=== PATIENT | male | born 1950 | race Caucasian/White ===

== ENCOUNTER 2019-08-18 11:36 | Outpatient (RCR) | payer MEDICARE, SELFPAY | END 2019-09-15 00:01 | LOC: SPT 11:36 | PROVIDERS: Family Provider Nurse Practitioner Family; Visit Provider Specialist | DX: R42 Dizziness and giddiness (principal) | CPT/HCPCS: 95992 ×3; 97162 ==

== ENCOUNTER → 2019-11-19 13:09 | Outpatient (BNVA) | payer MEDICARE, SELFPAY | PROVIDERS: Visit Provider Nurse Practitioner Family | DX: I10 Essential (primary) hypertension (principal); Z79.01 Long term (current) use of anticoagulants; J44.9 Chronic obstructive pulmonary disease, unspecified; E78.5 Hyperlipidemia, unspecified; K13.70 Unspecified lesions of oral mucosa | CPT/HCPCS: 80053; 80061; 85025; 85610 ==

== ENCOUNTER 2019-12-05 09:45 | Emergency (ER) | payer MEDICARE, SELFPAY ==
[2019-12-05 09:52] VITALS: BMI 26.4
--- NOTE | 2019-12-05 09:52 | XR_ITS ---
WS: [id number] XR chest 1V portable [id number] REASON FOR EXAM: cough/congestion FINDINGS: Diffuse pleural plaque formation on the right side similar to the previous exam of February 23, 2017. The heart is not enlarged there is arteriosclerotic changes. The lung luciano are otherwise clear there is no pneumonia, pulmonary edema, pleural effusion, The hilum and apices normal. XR/XR chest 1V portable [id number] IMPRESSION: Diffuse pleural plaque formation on the right side.
[2019-12-05 09:54] VITALS: BP 112/71; PULSE 60; RESP 20; TEMP 36.5; O2SAT 97
--- NOTE | 2019-12-05 09:54 | ED_ITS ---
Entered by Joe Mendez, acting as scribe for HPI - General Adult General: Chief complaint: General Medical Stated complaint: COUGH, FEVER Time Seen by Provider: 12/05/19 09:55 Source: patient and family Mode of arrival: ambulatory Limitations: no limitations History of Present Illness: HPI narrative: Patient is a very nice 69-year-old male who presents to ED today with complaints of a productive cough, generally not feeling well, subjective fevers, and dizziness after coughing. Patient tells me symptoms have been present over the past 2 to 3 days. He does have a history of COPD. Reports being a former smoker and quit 3 to 4 years ago. He does not wear oxygen at home. Patient tells me he has not been around anybody else that has been sick. He has had no recent travel. Onset (ago): day(s) Relieving factors: none Exacerbating factors: none Associated symptoms: Deny chest pain, dyspnea, headache(s), nausea, rash, palpitations, syncope or vomiting Review of Systems Const: Reports: fever (subjective) and body aches Eyes: Denies: change in vision, blurry vision or photophobia ENMT: Denies: throat pain, uvular edema, enlarged tonsils, painful swallowing, hoarseness, nasal discharge, nasal congestion or facial/sinus pain Card: Denies: chest pain, palpitations, irregular heart rhythm, edema, lightheadedness, syncope, pre-syncope or shortness of breath when lying down Resp: Reports: productive cough and chest congestion; Denies: shortness of breath or coughing up blood GI: Denies: abdominal pain, nausea, vomiting or diarrhea : Denies: flank pain, difficulty urinating, urinary hesitancy or difficulty starting urination Musc: Denies: neck pain, back pain, extremity pain or joint pain Skin/Breast: Denies: rash Neuro: Denies: headache, numbness in extremities, weakness in extremities or changes in sensation PFS ED PFSH: Medical History (Updated 12/05/19 @ 11:03 by MILLY Aldana) Anticoagulant long-term use COPD (chronic obstructive pulmonary disease) Hyperlipidemia Hypertension Family History (Updated 11/19/19 @ 11:26 by Julia Smith LPN, RT) Father CAD (coronary artery disease) Social History (Updated 11/19/19 @ 11:29 by Julia Smith LPN, RT) Smoking and tobacco status: never smoked Quit status (tobacco): has quit using tobacco Year quit tobacco: 2017 Former quit date comment: smoked 70 pack yr x 30 yrs Second hand smoke exposure: No Alcohol intake: former Year of sobriety/quit date alcohol: 2017 Lives independently: Yes Household members: spouse Marital status: service: No Current occupational status: retired History of recent travel: No Current gender identity: Male Physical Exam Const: COMMON NORMALS: no apparent distress, average body habitus, oriented x3, no limitations, healthy appearing, alert and well nourished HENMT: COMMON NORMALS: normocephalic, head/scalp atraumatic, hearing grossly normal bilaterally, external ears normal, EAC's normal, TM's normal bilaterally, external nose normal, nasal mucous membranes and turbinates normal, moist oral mucous membranes, oropharynx normal and gingiva normal HEAD & SCALP: normocephalic and atraumatic FACE & SINUS: normal facial exam NOSE: external nose normal and nasal mucous membranes and turbinates normal EXTERNAL EAR: Yes external ears normal EXTERNAL AUDITORY CANAL: EAC's normal TYMPANIC MEMBRANE: TM's normal bilaterally THROAT: posterior oropharynx normal, tonsils normal and uvula midline; no uvular edema Eye: COMMON NORMALS: PERRL, EOMs intact bilaterally, conjunctivae normal and no scleral icterus CONJUNCTIVA: Yes conjunctivae normal PUPIL: Yes PERRL Neck/C-Spine: COMMON NORMALS: full ROM, no lymphadenopathy and no meningeal signs Resp: COMMON NORMALS: normal respiratory effort AUSCULTATION: rhonchi lower bilaterally Cardio: COMMON NORMALS: regular rate and regular rhythm RATE: regular rate RHYTHM: regular rhythm GI: COMMON NORMALS: normal to inspection, nondistended, normoactive bowel sounds, soft to palpation, non-tender, no hepatosplenomegaly and no masses PALPATION: Yes soft and Yes no hepatosplenomegaly : COMMON NORMALS: Yes no CVA tenderness BLADDER/KIDNEY EXAM: Yes no CVA tenderness Back/Pelvis: COMMON NORMALS: no CVA tenderness, thoracic and lumbar spine norm al to inspection, no thoracic nor lumbar tenderness and thoraco-lumbar ROM normal Extremity: COMMON NORMALS: normal to inspection Neuro: COMMON NORMALS: oriented x3 SENSORIUM/ORIENTATION: Yes alert MENINGEAL SIGNS: Yes no meningeal signs Skin: COMMON NORMALS: no rashes or lesions noted GENERAL SKIN EXAM: no rashes or lesions noted Course Vital Signs: Vital signs: Vital Signs Temperature 97.7 F 12/05/19 09:54 Pulse Rate 62 12/05/19 10:31 Respiratory Rate 18 12/05/19 10:31 Blood Pressure 110/68 12/05/19 10:31 Pulse Oximetry 95 12/05/19 10:31 MDM - General Adult MDM Narrative: Medical decision making narrative: pts vitals are perfect; CXR showing nothing acute; labs are non-concerning; flu is negative; will treat him for exacerbation of COPD and recommend self quarantine based on symptoms and he can return if worsening. Lab Data: Labs: Lab Results 12/05/19 12/05/19 12/05/19 Range/Units 09:52 10:03 10:03 WBC 5.8 (4.0-10.0) 10^3/ uL RBC 4.27 (4.1-5.3) 10^6/u L Hgb 13.2 (11.7-16.6) g/dL Hct 41.0 L (42.0-52.0) % MCV 96.0 H (80-94) fL MCH 30.9 (28.0-34.0) pg MCHC 32.2 (30.0-36.0) g/dL RDW 13.1 (12.1-15.1) % Plt Count 159 (130-400) 10^3/c mm MPV 9.9 (7.4-10.4) fL Neut % (Auto) 63.0 % Lymph % (Auto) 28.0 % [place] % (Auto) 8.2 % Eos % (Auto) 0.3 % Baso % (Auto) 0.0 % Neut # (Auto) 3.7 (1.8-7.7) 10^3/u L Lymph # (Auto) 1.6 (0.8-4.8) 10^3/u L [place] # (Auto) 0.5 (0.2-0.9) 10^3/u L Eos # (Auto) 0.0 (0.0-0.8) 10^3/u L Baso # (Auto) 0.0 (0.0-0.1) 10^3/u L Nucleated RBC % (a uto) 0 % Nucleated RBCs # 0.0 /100WBC PT (10.5-13.3) SECO NDS INR (0.8-1.2) Sodium 138 (136-145) mmol/L Potassium 4.6 (3.5-5.1) mmol/L Chloride 100 (98-107) mmol/L Carbon Dioxide 30 H (22-29) mmol/L Anion Gap 12.6 (5-19) BUN 17 (8-23) mg/dL Creatinine 0.9 (0.7-1.2) mg/dL GFR Calculation 83.9 L (90-130) mL/min Glucose 104 (65-115) mg/dL Calculated Osmolal ity 283 L (285-295) mOsm/k g Calcium 9.9 (8.5-10.5) mg/dL Total Bilirubin 1.3 H (0.15-1.2) mg/dL AST 27 (0-40) U/L ALT 18 (0-41) U/L Alkaline Phosphata se 73 (40-130) IU/L Total Protein 7.7 (6.6-8.7) g/dL Albumin 4.0 (3.5-5.2) g/dL Globulin 3.7 (1.3-4.6) g/dL Influenza Type A A g Negative (Negative) POC Influenza B Ag Negative (Negative) 12/05/19 Range/Units 10:03 WBC (4.0-10.0) 10^3/ uL RBC (4.1-5.3) 10^6/u L Hgb (11.7-16.6) g/dL Hct (42.0-52.0) % MCV (80-94) fL MCH (28.0-34.0) pg MCHC (30.0-36.0) g/dL RDW (12.1-15.1) % Plt Count (130-400) 10^3/c mm MPV (7.4-10.4) fL Neut % (Auto) % Lymph % (Auto) % Castro % (Auto) % Eos % (Auto) % Baso % (Auto) % Neut # (Auto) (1.8-7.7) 10^3/u L Lymph # (Auto) (0.8-4.8) 10^3/u L [place] # (Auto) (0.2-0.9) 10^3/u L Eos # (Auto) (0.0-0.8) 10^3/u L Baso # (Auto) (0.0-0.1) 10^3/u L Nucleated RBC % (a uto) % Nucleated RBCs # /100WBC PT 30.10 H (10.5-13.3) SECO NDS INR 2.75 H (0.8-1.2) Sodium (136-145) mmol/L Potassium (3.5-5.1) mmol/L Chloride (98-107) mmol/L Carbon Dioxide (22-29) mmol/L Anion Gap (5-19) BUN (8-23) mg/dL Creatinine (0.7-1.2) mg/dL GFR Calculation (90-130) mL/min Glucose (65-115) mg/dL Calculated Osmolal ity (285-295) mOsm/k g Calcium (8.5-10.5) mg/dL Total Bilirubin (0.15-1.2) mg/dL AST (0-40) U/L ALT (0-41) U/L Alkaline Phosphata se (40-130) IU/L Total Protein (6.6-8.7) g/dL Albumin (3.5-5.2) g/dL Globulin (1.3-4.6) g/dL Influenza Type A A g (Negative) POC Influenza B Ag (Negative) Imaging Data^: CXR: Radiologist's impression: [place] [address] XRay Report Signed Patient: Lei Azevedo Unit #: [id number] : [id number] Age/Sex: 69 / M ADM Date: 12/05/19 Loc: ER Room/Bed: Attending Dr: Ordering Provider/Ordering MD: Imelda Trammell Date of Service: 12/05/19 Procedure(s): XR chest 1V portable [id number] Accession Number(s): [id number] Report Number: [id number] WS: [id number] XR chest 1V portable [id number] REASON FOR EXAM: cough/congestion FINDINGS: Diffuse pleural plaque formation on the right side similar to the previous exam of February 23, 2017. The heart is not enlarged there is arteriosclerotic changes. The lung luciano are otherwise clear there is no pneumonia, pulmonary edema, pleural effusion, The hilum and apices normal. XR/XR chest 1V portable [id number] IMPRESSION: Diffuse pleural plaque formation on the right side. Dictated By: Abdoulaye Casillas DO Signed By: Abdoulaye Casillas DO Signed Date/Time: 12/05/19 1011 DD/ 1010 Discharge Plan Discharge Patient Disposition: Home, Self-Care Clinical Impression: Bronchitis, Acute exacerbation of chronic obstructive airways disease Condition: Stable Prescriptions: New prednisone 10 mg tablet 60 mg PO DAILY 5 Days Qty: 30 RF: 0 doxycycline monohydrate 100 mg capsule 100 mg PO Q12H 10 Days Qty: 20 RF: 0 albuterol sulfate 90 mcg/actuation HFA aerosol inhaler 2 inh INHALATION Q4H PRN (Reason: shortness of breath) Qty: 6.7 RF: 0 No Action tamsulosin [Flomax] 0.4 mg capsule 0.4 mg PO DAILY RF: 0 warfarin [Coumadin] 2 mg tablet 2 mg PO DIRECTED RF: 0 rosuvastatin [Crestor] 40 mg tablet 40 mg PO DAILY RF: 0 Spiriva with HandiHaler 18 mcg capsule, w/inhalation device 1 cap INHALATION DAILY RF: 0 nitroglycerin [Nitrostat] 0.4 mg tablet, sublingual 0.4 mg SUBLINGUAL Q5M PRNRF: 0 fluticasone propionate [Flonase Allergy Relief] 50 mcg/actuation spray,suspension 1 spray INTRANASAL DAILY Qty: 9.9 RF: 3 metoprolol tartrate 25 mg tablet 25 mg PO BID Qty: 60 RF: 0 Discharge Orders: Discharge Order (Routine); Ordered 12/05/19 Ordered By: Imelda Trammell Discharge Diet: Usual diet Discharge Activity: Increase activity as tolerated Patient Instructions: COPD, Acute Bronchitis (ED), Chronic Bronchitis (ED) Coding Level of Care Code ED Pmp Certified Project Manager for g Fwd Exam Comprehensive The documentation recorded by the Andrea arboleda Kialy, accurately reflects the service I personally performed and the decisions made by Jp nathan Emily, PA
[2019-12-05 10:08] LABS: Eosinophils % 0.3 %; Hemoglobin 13.2 g/dL (11.7-16.6); Lymphocytes # 1.6 10^3/uL (0.8-4.8); Mean Corpuscular HGB Conc 32.2 g/dL (30.0-36.0); Mean Corpuscular Hemoglobin 30.9 pg (28.0-34.0); Mean Platelet Volume 9.9 fL (7.4-10.4); Monocytes # 0.5 10^3/uL (0.2-0.9); Monocytes % 8.2 %; Neutrophils # 3.7 10^3/uL (1.8-7.7); Nucleated Red Blood Cells % 0 %; Platelet Count 159 10^3/cmm (130-400); Red Blood Count 4.27 10^6/uL (4.1-5.3); Red Cell Distribution Width 13.1 % (12.1-15.1); White Blood Count 5.8 10^3/uL (4.0-10.0)
[2019-12-05 10:16] LABS: INR 2.75 (0.8-1.2)
[2019-12-05] MEDS: sodium chloride 0.9% 1,000 ML 999 ML IV (10:19)
[2019-12-05 10:23] LABS: Alanine Aminotransferase 18 U/L (0-41); Alkaline Phosphatase 73 IU/L (40-130); Anion Gap 12.6 (5-19); Aspartate Amino Transferase 27 U/L (0-40); Blood Urea Nitrogen 17 mg/dL (8-23); Calcium 9.9 mg/dL (8.5-10.5); Carbon Dioxide 30 mmol/L (22-29); Chloride 100 mmol/L (98-107); Globulin 3.7 g/dL (1.3-4.6); Glomerular Filtration Rate 83.9 mL/min (90-130); Glucose 104 mg/dL (65-115); Osmolality Calculated 283 mOsm/kg (285-295); Potassium 4.6 mmol/L (3.5-5.1); Sodium 138 mmol/L (136-145); Total Bilirubin 1.3 mg/dL (0.15-1.2); Total Protein 7.7 g/dL (6.6-8.7)
[2019-12-05 10:31] VITALS: BP 110/68; PULSE 62; RESP 18; O2SAT 95
[2019-12-05 10:47] LABS: Influenza A by IFA Negative (Negative); Influenza B by IFA Negative (Negative)
[2019-12-05 11:38] VITALS: BP 136/74; PULSE 61; RESP 16; O2SAT 97
== END 2019-12-05 11:44 | disposition home or self-care (01) ==
PROVIDERS: Emergency Provider Physician Assistant
DX: J44.1 Chronic obstructive pulmonary disease with (acute) exacerbation (principal); E78.5 Hyperlipidemia, unspecified; I10 Essential (primary) hypertension; Z79.01 Long term (current) use of anticoagulants; Z79.51 Long term (current) use of inhaled steroids; Z87.891 Personal history of nicotine dependence
CPT/HCPCS: 12345; 36415; 71045; 80053; 85025; 85610; 87804; 96360; 99283; J7030

== ENCOUNTER → 2019-12-14 13:32 | Outpatient (BNVA) | payer MEDICARE, SELFPAY | PROVIDERS: Visit Provider Nurse Practitioner Family | DX: Z79.01 Long term (current) use of anticoagulants (principal); B37.0 Candidal stomatitis; J30.9 Allergic rhinitis, unspecified | CPT/HCPCS: 85610 ==

== ENCOUNTER → 2019-12-22 13:48 | Outpatient (BNVA) | payer MEDICARE, SELFPAY | PROVIDERS: Visit Provider Nurse Practitioner Family | DX: R63.4 Abnormal weight loss (principal); Z79.01 Long term (current) use of anticoagulants; K13.70 Unspecified lesions of oral mucosa; L20.9 Atopic dermatitis, unspecified; F17.200 Nicotine dependence, unspecified, uncomplicated | CPT/HCPCS: 80053; 84443; 85025; 85610 ==

== ENCOUNTER → 2019-12-25 14:00 | Outpatient (BNVA) | payer MEDICARE, SELFPAY | PROVIDERS: Visit Provider Nurse Practitioner Family | DX: N39.0 Urinary tract infection, site not specified (principal); J02.9 Acute pharyngitis, unspecified; K13.70 Unspecified lesions of oral mucosa; N30.01 Acute cystitis with hematuria; F17.200 Nicotine dependence, unspecified, uncomplicated; R63.4 Abnormal weight loss; L20.9 Atopic dermatitis, unspecified | CPT/HCPCS: 81000 ==

== ENCOUNTER 2019-12-28 07:54 | Outpatient (CLI) | payer MEDICARE, SELFPAY ==
--- NOTE | 2019-12-28 08:30 | CT_ITS ---
WS: [id number] CT CHEST TECHNIQUE: Contrast enhanced CT of the chest with coronal and sagittal reformatted images. CLINICAL INFORMATION: weight loss; smoker COMPARISON: CT August 13, 2016 DLP: 779.[address] scans at [facility] use at least one of these dose optimization techniques: automat ed exposure control; mA and/or kV adjustment per patient size (includes targeted exams where dose is matched to clinical indication); or iterative reconstruction. FINDINGS: Moderate chronic emphysematous changes. Stable right pleural-based calcifications. Stable fibrosis ri ght lower lobe. Chronic interstitial thickening in the right middle lobe. No acute-appearing pulmonar y infiltrates. No suspicious pulmonary parenchymal opacities. No mediastinal or hilar lymphadenopathy . Coronary artery calcification. Chronic right posterior rib fractures with callus formations. Moderate esophageal hiatal hernia. Stable left adrenal adenoma measuring 2.8 cm. No axillary lymphadenopathy. A few prominent axillary lymph nodes not pathologically enlarged. Mild thoracic kyphosis. Hypertroph ic changes thoracic spine.. Partially visualized bilateral renal cysts. CT/CT chest w con* [id number] IMPRESSION: 1. Moderate chronic emphysematous changes. No acute pulmonary infiltrates. 2. Stable pleural-based calcifications right lung. 3. No suspicious pulmonary parenchymal opacities. Chronic interstitial thicken ing right middle lobe and fibrosis right lower lobe unchanged. 4. Coronary artery calcification. 5. Moderate esophageal hiatal hernia. 6. Left adrenal adenoma measuring 2.8 cm.
[2019-12-28] MEDS: iohexol 300 mg/mL 100 mL Btl IV (08:33)
== END 2019-12-28 07:55 | disposition home or self-care (01) ==
PROVIDERS: PCP Nurse Practitioner; Visit Provider Nurse Practitioner Family
DX: R63.4 Abnormal weight loss (principal); J43.9 Emphysema, unspecified; K44.9 Diaphragmatic hernia without obstruction or gangrene; D35.02 Benign neoplasm of left adrenal gland
CPT/HCPCS: 71260; Q9967

== ENCOUNTER → 2020-01-07 13:54 | Outpatient (BNVA) | payer MEDICARE, SELFPAY | PROVIDERS: PCP Nurse Practitioner; Visit Provider Nurse Practitioner Family | DX: Z79.01 Long term (current) use of anticoagulants (principal); N39.0 Urinary tract infection, site not specified | CPT/HCPCS: 80053; 81003; 85610 ==

== ENCOUNTER → 2020-01-25 17:35 | Outpatient (BNVA) | payer MEDICARE, SELFPAY | PROVIDERS: PCP Nurse Practitioner Family; Visit Provider Nurse Practitioner Family | DX: R63.4 Abnormal weight loss (principal); Z12.5 Encounter for screening for malignant neoplasm of prostate; M25.60 Stiffness of unspecified joint, not elsewhere classified; N30.01 Acute cystitis with hematuria; Z12.11 Encounter for screening for malignant neoplasm of colon; I48.91 Unspecified atrial fibrillation; I10 Essential (primary) hypertension; L29.9 Pruritus, unspecified; E55.9 Vitamin D deficiency, unspecified; Z13.818 Encounter for screening for other digestive system disorders; Z11.59 Encounter for screening for other viral diseases | CPT/HCPCS: 80053; 81003; 82306; 82607; 84439; 84443; 84481; 85025; 85610; 85651; 86038; 86140; 86308; 86431; 86592; 86705; 86706; 86709; 86803; 87340; 87806; G0103 ==

== ENCOUNTER → 2020-02-01 10:04 | Outpatient (BNVA) | payer MEDICARE, SELFPAY | PROVIDERS: PCP Nurse Practitioner Family; Visit Provider Nurse Practitioner Family | DX: N30.01 Acute cystitis with hematuria (principal) | CPT/HCPCS: 81001 ==

== ENCOUNTER → 2020-02-03 12:14 | Outpatient (BNVA) | payer MEDICARE, SELFPAY | PROVIDERS: PCP Nurse Practitioner Family; Visit Provider Nurse Practitioner Family | DX: R63.4 Abnormal weight loss (principal); Z86.718 Personal history of other venous thrombosis and embolism | CPT/HCPCS: 85610; 87338 ==

== ENCOUNTER 2020-02-05 08:14 | Outpatient (CLI) | payer MEDICARE, SELFPAY ==
--- NOTE | 2020-02-05 10:00 | CT_ITS ---
WS: [id number] CT ABDOMEN AND PELVIS WITH CONTRAST HISTORY: weight loss: 50# in 6 months; unintentional TECHNIQUE: Imaging performed of the abdomen and pelvis with IV contrast. Single phase imaging of the abdomen. Coronal and sagittal reformats are submitted. All CT scans at [facility] use at least one of these dose optimization techniques: automated exposure control; mA and/or kV adjustment per patient size (includes targeted exams where dose is matched to clinical indication); or iterativ e reconstruction. IV CONTRAST: Omnipaque 300; 95 mL IV. Oral contrast: Yes. DLP: 1126.39 mGy-cm. COMPARISON: 02/14/2017 Lower thorax: Hyperexpanded lungs and changes of emphysema. Heavy, thick calcified pleural plaques in the RIGHT lower lobe. No associated nodule or mass. Similar to the prior study. Heart is normal size . Moderate to large hiatal hernia similar to the prior study. Liver/biliary system: Normal size with no intrahepatic dilatation. Gallbladder: Normal. No gallstones or wall thickening. No pericholecystic fluid. Pancreas: Normal. Spleen: Normal size spleen with granulomata. Adrenal glands: Normal RIGHT adrenal gland. Stable low-attenuation mass in the LEFT adrenal gland haim sures 2.5 x 1.9 cm. Long-term stability and most likely benign adenoma. Right kidney: Normal size RIGHT kidney. Simple cyst in the upper medial RIGHT kidney measures 3.1 x 2 .5 cm and has increased in size since 2017. No solid mass or obstruction. Left kidney: Large lobulated cystic mass in the mid LEFT kidney appears contiguous from the renal pel vis into the lower pole cortex. This lobulated cyst measures 6.8 x 4.2 cm and is slightly increased i n size. There are additional multiple cysts and too small to characterize hypodensities. No solid mas s identified. Aorta: Moderate atherosclerosis with no aneurysm. Lymphadenopathy: No significant adenopathy is identified. There are small bilateral inguinal lymph no lili. Additional small iliac chain lymph nodes. Free fluid: None. GI tract: The appendix is slightly enlarged measuring 6.2 mm in diameter. There is still air within t he appendix and there is contrast. This is typically not seen with appendicitis. Mild fecal retention throughout the colon. No strictures or mucosal lesions are identified in the colon. There are a few diverticula without diverticulitis. Abdominal wall: Unremarkable abdominal wall. No hernia. Pelvis: No free fluid or adenopathy. Prostate gland is normal size with central calcifications. Bones: No osteoblastic or osteolytic bone disease. Prior remote healed rib fractures in the posterior inferior RIGHT thorax. CT/CT abdomen pelvis w con* [id number] IMPRESSION: 1. The appendix is top normal size although otherwise negative. At this time t here is no evidence for appendicitis. 2. Diffuse moderate constipation with no strictures or obstruction. 3. RIGHT pleural-based plaques likely due to prior asbestosis exposure. 4. Moderate size hiatal hernia. 5. Bilateral renal cysts. Renal cysts have slightly increased in size since . 6. No ascites or adenopathy. 7. LEFT adrenal mass is stable and most consistent with an adenoma.
[2020-02-05] MEDS: iohexol 300 mg/mL 100 mL Btl IV (10:55)
[2020-02-05] MEDS: iohexol 300 mg/mL 50 mL Btl PO (10:56)
== END 2020-02-05 08:15 | disposition home or self-care (01) ==
PROVIDERS: PCP Nurse Practitioner Family; Visit Provider Nurse Practitioner Family
DX: R63.4 Abnormal weight loss (principal); K59.00 Constipation, unspecified; K44.9 Diaphragmatic hernia without obstruction or gangrene; N28.1 Cyst of kidney, acquired
CPT/HCPCS: 74177; Q9967

== ENCOUNTER 2020-02-15 11:06 | Emergency (ER) | payer MEDICARE, SELFPAY ==
[2020-02-15 11:51] VITALS: BP 114/66; PULSE 48; RESP 17; TEMP 36.2; O2SAT 97; BMI 22.3
--- NOTE | 2020-02-15 12:02 | XR_ITS ---
WS: [id number] XR chest 1V portable [id number] REASON FOR EXAM: sob FINDINGS: This study again shows diffuse pleural plaque along the right lateral chest wall. This is s imilar to previous exam December 05, 2019. The heart is unchanged not enlarged there is arteriosclerotic changes seen. There is mild chronic obstructive pulmonary disease findings. The hilum and apices are normal. XR/XR chest 1V portable [id number] IMPRESSION: Diffuse pleural plaque changes on the right side.
--- NOTE | 2020-02-15 12:03 | W.ED.SKABFB ---
HPI - Skin/Abscess/Foreign Bdy General: Chief complaint: Skin/Abscess/Foreign Body Stated complaint: HAS STUFF COMING OUT OF PORES Time Seen by Provider: 02/15/20 11:17 Source: patient Mode of arrival: ambulatory Limitations: no limitations History of Present Illness: HPI narrative: 69-year-old male states he feels like he has had sand coming out on his skin for months. He states he is seen his primary care multiple times and unable to get what is causing it patient is well-appearing here. He states he feels like he can wipe the send off of his skin. He states he feels like he is turning in the same.. Associated symptoms: Deny chills, fever(s), nausea or vomiting Review of Systems Const: Denies: fever(s), chills, body aches or change in appetite Eyes: Denies: blurry vision or eye discomfort ENMT: Denies: throat pain or dental pain Card: Denies: chest pain Resp: Denies: dyspnea GI: Denies: abdominal pain, nausea, vomiting or diarrhea : Denies: dysuria Musc: Denies: neck pain or back pain Skin/Breast: Denies: rash Neuro: Denies: headache(s) Psych: Denies: depression Adolph/Lymph: Denies: easy bruising All/Imm: Denies: urticaria PFSH ED PFSH: Medical History Alcohol abuse Anticoagulant long-term use CAD (coronary artery disease) Constipation COPD (chronic obstructive pulmonary disease) Depression with anxiety Family history of factor V Leiden mutation Frequent urinary tract infections GERD (gastroesophageal reflux disease) History of GI bleed Hx of deep venous thrombosis Hx pulmonary embolism Hyperlipidemia Hypertension KIANA (obstructive sleep apnea) Restless leg syndrome Surgical History History of esophagogastroduodenoscopy (EGD) (~2008) Hx of arthroscopy of shoulder Family History Father CAD (coronary artery disease) Denies family history of Anesthesia complication Bleeding disorder Social History Smoking and tobacco status: never smoked Quit status (tobacco): has quit using tobacco Year quit tobacco: 2017 Former quit date comment: smoked 70 pack yr x 30 yrs Second hand smoke exposure: No Alcohol intake: former Year of sobriety/quit date alcohol: 2016 Lives independently: Yes Household members: spouse Marital status: service: No Current occupational status: retired History of recent travel: No Current gender identity: Male Physical Exam Const: COMMON NORMALS: no acute distress, patient oriented x3 and healthy appearing HENMT: COMMON NORMALS: normocephalic and atraumatic HEAD & SCALP: normocephalic and atraumatic Eye: COMMON NORMALS: Equal, round and reactive pupils present and EOMs intact bilaterally PUPIL: Yes Equal, round and reactive pupils present Neck/C-Spine: COMMON NORMALS: full ROM and supple Chest: COMMONS NORMALS: normal inspection of the chest and normal palpation of entire chest wall Resp: COMMON NORMALS: normal respiratory effort, No retractions, No use of accessory muscles and clear to auscultation bilaterally AUSCULTATION: clear to auscultation bilaterally Cardio: COMMON NORMALS: regular rate, regular rhythm and No murmurs present (Cardio) RATE: regular rate RHYTHM: regular rhythm GI: COMMON NORMALS: Normal to inspection, nondistended, normoactive bowel sounds present, Soft to palpation, non-tender and no masses PALPATION: Yes Soft to palpation Extremity: COMMON NORMALS: normal to inspection and full ROM Neuro: COMMON NORMALS: patient oriented x3, moves all extremities and no focal motor deficits Psych: COMMON NORMALS: mental status grossly normal, Normal thought process present and cooperative THOUGHT PROCESS: Normal thought process present Skin: COMMON NORMALS: no rashes or lesions noted and no wounds GENERAL SKIN EXAM: no rashes or lesions noted Course Vital Signs: Vital signs: Vital Signs Temperature 97.2 F L 02/15/20 11:51 Pulse Rate 48 L 02/15/20 11:51 Respiratory Rate 17 02/15/20 11:51 Blood Pressure 114/66 02/15/20 11:51 Pulse Oximetry 97 02/15/20 11:51 MDM - Skin/Abscess/Foreign Bdy MDM Narrative: Medical decision making narrative: Patient presents here thinking has had sand coming up his body for months. He is well-appearing here and his vital signs lab work are all normal. Chest x-ray shows no acute findings. Patient is stable for discharge and is to follow-up with his primary care doctor soon as possible and return if worsening. Lab Data: Labs: Lab Results 02/15/20 02/15/20 Range/Units 12:14 12:14 WBC 4.5 (4.0-10.0) 10^3/ uL RBC 4.11 (4.1-5.3) 10^6/u L Hgb 12.9 (11.7-16.6) g/dL Hct 40.9 L (42.0-52.0) % MCV 99.5 H (80-94) fL MCH 31.4 (28.0-34.0) pg MCHC 31.5 (30.0-36.0) g/dL RDW 13.7 (12.1-15.1) % Plt Count 189 (130-400) 10^3/c mm MPV 9.1 (7.4-10.4) fL Neut % (Auto) 44.3 % Lymph % (Auto) 45.3 % [place] % (Auto) 8.6 % Eos % (Auto) 1.8 % Baso % (Auto) 0.0 % Neut # (Auto) 2.0 (1.8-7.7) 10^3/u L Lymph # (Auto) 2.1 (0.8-4.8) 10^3/u L [place] # (Auto) 0.4 (0.2-0.9) 10^3/u L Eos # (Auto) 0.1 (0.0-0.8) 10^3/u L Baso # (Auto) 0.0 (0.0-0.1) 10^3/u L Nucleated RBC % (a uto) 0 % Nucleated RBCs # 0.0 /100WBC Sodium 138 (136-145) mmol/L Potassium 4.7 (3.5-5.1) mmol/L Chloride 104 (98-107) mmol/L Carbon Dioxide 26 (22-29) mmol/L Anion Gap 12.7 (5-19) BUN 12 (8-23) mg/dL Creatinine 0.9 (0.7-1.2) mg/dL GFR Calculation 83.9 L (90-130) mL/min Glucose 84 (65-115) mg/dL Calculated Osmolal ity 281 L (285-295) mOsm/k g Calcium 9.4 (8.5-10.5) mg/dL Total Bilirubin 0.9 (0.15-1.2) mg/dL AST 17 (0-40) U/L ALT 14 (0-41) U/L Alkaline Phosphata se 84 (40-130) IU/L Total Protein 6.5 L (6.6-8.7) g/dL Albumin 4.0 (3.5-5.2) g/dL Globulin 2.5 (1.3-4.6) g/dL Discharge Plan Discharge Patient Disposition: Home, Self-Care Clinical Impression: Chronic dyspnea Condition: Stable Prescriptions: No Action Eucrisa 2 % ointment 1 applic TOPICAL BID Qty: 100 RF: 1 lactulose 10 gram/15 mL (15 mL) solution 15 ml PO BID 7 Days Qty: 210 RF: 0 sulfamethoxazole-trimethoprim [Bactrim DS] 800-160 mg tablet 1 tab PO BID Qty: 60 RF: 0 warfarin [Coumadin] 2 mg tablet 2 mg PO DIRECTED RF: 0 rosuvastatin [Crestor] 40 mg tablet 40 mg PO DAILY RF: 0 nitroglycerin [Nitrostat] 0.4 mg tablet, sublingual 0.4 mg SUBLINGUAL Q5M PRNRF: 0 tamsulosin [Flomax] 0.4 mg capsule 0.4 mg PO BID RF: 0 albuterol sulfate 90 mcg/actuation HFA aerosol inhaler 2 inh INHALATION Q4H PRN (Reason: shortness of breath) Qty: 6.7 RF: 0 Discharge Orders: Discharge Order (Routine); Ordered 02/15/20 Ordered By: Connie Hawkins Referrals: Julia Benz FNP [Primary Care Provider] - 1-3 days Discharge Diet: Advance as tolerated Discharge Activity: Resume usual activity Patient Instructions: Dyspnea (ED) Coding Level of Care Code ED Circuit Board Repair Technician for Devorah Fwd Exam Comprehensive
[2020-02-15 12:24] LABS: Eosinophils # 0.1 10^3/uL (0.0-0.8); Eosinophils % 1.8 %; Hematocrit 40.9 % (42.0-52.0); Hemoglobin 12.9 g/dL (11.7-16.6); Lymphocytes # 2.1 10^3/uL (0.8-4.8); Lymphocytes % 45.3 %; Mean Corpuscular HGB Conc 31.5 g/dL (30.0-36.0); Mean Corpuscular Hemoglobin 31.4 pg (28.0-34.0); Mean Corpuscular Volume 99.5 fL (80-94); Mean Platelet Volume 9.1 fL (7.4-10.4); Monocytes # 0.4 10^3/uL (0.2-0.9); Monocytes % 8.6 %; Neutrophils % 44.3 %; Nucleated Red Blood Cells % 0 %; Platelet Count 189 10^3/cmm (130-400); Red Blood Count 4.11 10^6/uL (4.1-5.3); Red Cell Distribution Width 13.7 % (12.1-15.1); White Blood Count 4.5 10^3/uL (4.0-10.0)
[2020-02-15 12:39] LABS: Alanine Aminotransferase 14 U/L (0-41); Alkaline Phosphatase 84 IU/L (40-130); Anion Gap 12.7 (5-19); Aspartate Amino Transferase 17 U/L (0-40); Blood Urea Nitrogen 12 mg/dL (8-23); Calcium 9.4 mg/dL (8.5-10.5); Carbon Dioxide 26 mmol/L (22-29); Chloride 104 mmol/L (98-107); Globulin 2.5 g/dL (1.3-4.6); Glomerular Filtration Rate 83.9 mL/min (90-130); Glucose 84 mg/dL (65-115); Osmolality Calculated 281 mOsm/kg (285-295); Potassium 4.7 mmol/L (3.5-5.1); Sodium 138 mmol/L (136-145); Total Bilirubin 0.9 mg/dL (0.15-1.2); Total Protein 6.5 g/dL (6.6-8.7)
[2020-02-15] MEDS: sodium chloride 0.9% 1,000 ML 999 ML IV (12:42)
[2020-02-15 15:43] VITALS: BP 122/69; PULSE 42; RESP 18; O2SAT 100
== END 2020-02-15 15:54 | disposition home or self-care (01) ==
PROVIDERS: Emergency Provider Emergency Medicine; PCP Nurse Practitioner Family
DX: R06.00 Dyspnea, unspecified (principal); Z79.01 Long term (current) use of anticoagulants; I25.10 Atherosclerotic heart disease of native coronary artery without angina pectoris; J44.9 Chronic obstructive pulmonary disease, unspecified; E78.5 Hyperlipidemia, unspecified; I10 Essential (primary) hypertension; Z87.891 Personal history of nicotine dependence
CPT/HCPCS: 12345; 36415; 71045; 80053; 85025; 96360; 99282; 99283; J7030

== ENCOUNTER → 2020-02-18 15:30 | Outpatient (BNVA) | payer MEDICARE, SELFPAY | PROVIDERS: PCP Nurse Practitioner Family; Visit Provider Nurse Practitioner Family | DX: R53.1 Weakness (principal) | CPT/HCPCS: 80053; 81000; 85025 ==

== ENCOUNTER 2020-02-23 14:35 | Outpatient (CLI) | payer MEDICARE, SELFPAY ==
--- NOTE | 2020-02-23 17:15 | ONC CON_ITS ---
Dr. Edward New Patient Note Patient: Lei Azevedo Unit #: [id number]: 1950 Dicatated By: Rafaela Edward M.D.Date of Visit: Feb 23, 2020 Onc MED New Patient/Consult Referring Physician: Redd Dubon History of Present Illness: Mr. Lei Azevedo, is a 69-year-old gentleman with history of right facial rash, diagnosed years ago at that time he was treated as a case of shingles but rash continue to progress and eventually patient experienced itching all over with skin dryness and also developed fausto feeling all over the skin and in the mouth and due to fausto feeling and dryness in his mouth, he could not eat much although he has a good appetite and he has lost about 55 pounds in a year. Patient said he has seen dermatology, Dr. Nava in [place] and he has been getting injection Dupixent and applying mixture of 2 creams tacrolimus and ketoconazole still having dryness of skin as well as fausto feeling in his mouth and all over the skin. Extensive work-up including THELMA screen which came back positive, nuclear, speckled, speckled pattern is associated with mixed connective tissue disease, systemic lupus erythematosus, Sjogren's syndrome, HIV screening was negative mono test was negative, hepatitis panel was negative and whole blood flow cytometry done on January 21, 2020 showed 13% clonal CD5 B cells. Etiology could be CLL or small lymphocytic lymphoma or monoclonal B-cell lymphocytosis of uncertain significance. Patient denies any B symptoms, no night sweats, no recurrent fevers but weight loss again that is due to dry mouth and fausto feeling in his mouth otherwise patient has good appetite. No peripheral lymphadenopathy No abdominal fullness., Patient denies any history of tick bite or exposure to any chemicals/pesticide, patient is a valderrama. Past Medical History: Mr. Mirza medical history consists of chronic obstructive pulmonary disease, coronary artery disease, history of alcohol abuse, history of dvt, history of gi bleed, hyperlipidemia, hypertension, obstructive sleep apnea, and restless leg syndrome. Past Surgical History: Mr. Mirza surgical/procedural history consists of back surgery x 2. Medications: Aspirin 1 Tablet (of 325 mg) Oral daily, Bactrim DS 1 Tablet (of 800-160 mg) Oral b.i.d., Cetirizine HCl 1 Tablet (of 10 mg) Oral daily, Coumadin 1.5 Tablet (of 2 mg) Oral daily, Metoprolol Tartrate 1 Tablet (of 25 mg) Oral b.i.d., Omeprazole 1 Tablet (of 20 mg) Tablet, enteric coated Oral daily, Rosuvastatin Calcium 1 Tablet (of 40 mg) Oral at bedtime, Tamsulosin HCl 1 CA 125 Units/mL (of 0.4 mg) Capsule Oral b.i.d. Allergies: No Known Allergies. Social History: Mr. Azevedo is and he is an unknown. Mr. Azevedo quit smoking 3 years ago but had smoked for 29 years. He quit drinking 3 years ago. Mr. Azevedo reports the following support systems: lives with spouse, significant other, family, or friends, lives in own house, supportive family/friends willing to assist with needs, and adequate transportation available for expected visits. His diet consists of regular meals. He indicates his activity level as: regular exercise. Family History: Mr. Azevedo's mother at age 75: myocardial infarction. Mr. Azevedo's father at age 89: myocardial infarction. Review Of Symptoms: Constitutional - Appetite is poor and weight is decreasing. No fever, night sweats, or hot flashes. Energy level is poor, ENMT - Positive for sinus congestion/drainage. No mouth sores. No sore throat or difficulty swallowing, Hematologic/Lymphatic - Positive for easy bruising, Respiratory - Positive for shortness of breath and cough. No pleuritic pain or hemoptysis, Cardiovascular - No angina pain. No palpitations, Gastrointestinal - Positive for nausea, no vomiting. Positive for heartburn and acid reflux. Flucuates between diarrhea and constipation. No blood in the stool or black stools, Genitourinary (M) - No dysuria or hematuria. Positive for urinary frequency. No urgency or incontinence, Musculoskeletal - Positive for joint pain, Neurologic - No headache or dizziness. No numbness or tingling. No other focal neurologic symptoms, Psychiatric - Positive for anxiety and depression. No insomnia. Vital Signs: Performed on Feb 23, 2020 15:07: 0, 23.32, 1.95 sq.m, 71.00 in, 96 %, 63 /min, 20 /min, 94/56 mm(hg), 98.7 F, and 167.2 lbs (HIGH). Performance Status: 0 - Fully active, able to carry on all predisease activities without restrictions. (ECOG) Physical Examination: ENMT - No mouth sores, no thrush but dryness and mild throat erythema, no jaundice, Hematologic/Lymphatic - No peripheral lymphadenopathy, Respiratory - Lungs are clear, Cardiovascular - Regular rate and rhythm of heart, Abdomen - Soft, bowel sounds present, nontender, Extremities - No visible edema, dry skin, maculopapular rash involving right face and upper extremities. Lab/Imaging: Most recent lab results are not available for this patient. 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 done on January 21, 2020 THELMA positive, speckled pattern Generalized itching with fausto feeling in the mouth and all over the skin, now being treated with dupixent and topical tacrolimus/ketoconazole Weight loss, due to dry mouth Plan: Discussed with patient regarding whole blood flow cytometry results done on January 21, 2020 which showed 13% clonal, CD5 positive B cells and possible causes which include lymphoproliferative disorder like low-grade lymphoma or chronic lymphocytic leukemia or could be part of autoimmune disorder as work-up showed THELMA positive or monoclonal B-cell lymphocytosis of uncertain significance as his CBC showed normal white blood counts with normal differential. No B symptoms no peripheral lymphadenopathy or CT scan of chest abdomen pelvis showed no central lymphadenopathy or organomegaly. Other possibility could be due to dupixent Therapy And tacrolimus induced lymphoproliferative disorder At this point, we will repeat CBC, with a differential, with peripheral blood smear and also consider repeating whole blood flow cytometry, if abnormal, will consider Holding dupixent and tacrolimus for a month and then repeat or blood flow cytometry to rule out medication induced monoclonal lymphocytosis and if persist, will consider cytogenetics and immunohistochemistry for cyclin D1. And also consider bone marrow evaluation. Patient already had CT scan of chest abdomen pelvis, as per patient and family it was normal, will obtain reports and review. Patient is already scheduled for colonoscopy and EGD on March 01, 2020. As patient has THELMA positive, speckled pattern which is associated with mixed connective tissue disease, systemic lupus erythematosus or Sjogren's syndrome or dermatomyositis, we will suggest referral to rheumatology for further evaluation. Patient will return to clinic in 2 weeks with above-mentioned work-up. Signed By: Rafaela Edward M.D. <<Signature on File>>
== END 2020-02-23 14:36 | disposition home or self-care (01) ==
LOC: ONCMED 14:43
PROVIDERS: PCP Nurse Practitioner Family; Visit Provider Internal Medicine Hematology & Oncology
DX: D72.820 Lymphocytosis (symptomatic) (principal); R76.0 Raised antibody titer; L29.9 Pruritus, unspecified; L98.9 Disorder of the skin and subcutaneous tissue, unspecified; R63.4 Abnormal weight loss
CPT/HCPCS: 99203

== ENCOUNTER 2020-02-25 09:25 | Day surgery (SDC) | payer MEDICARE, SELFPAY ==
[2020-02-23 13:22] VITALS: BMI 22.1
[2020-02-25 09:50] VITALS: BP 93/66; PULSE 69; RESP 18; TEMP 36.3; O2SAT 99
[2020-02-25] MEDS: sodium chloride 0.9% 1,000 ML 30 ML IV (10:09)
--- NOTE | 2020-02-25 10:10 | ANES.PREANE2 ---
Pre-Anesthetic Assessment Pre-Anesthetic Assessment: Height/Weight: Height 1.8 m Weight 72.121 kg Temp Pulse Resp BP Pulse Ox 97.4 F L 69 18 93/66 99 02/25/20 09:50 02/25/20 09:50 02/25/20 09:50 02/25/20 09:50 02/25/20 09:50 Preop Diagnosis: Weight loss, constipation Proposed Procedure: Operation Date: 02/25/20 11:10 Proposed Procedures p EGD(Not Applicable) - Cb Chairez MD s Colonoscopy(Not Applicable) - Cb Chairez MD Familial anesthetic complications: None Was Beta Adis taken within 24 hours: N/A Last intake: Intake Last Liquid Date 02/24/20 Last Liquid Time 21:00 Last Solid Date 02/23/20 Last Solid Time 23:59 Social: Social History: No alcohol and No tobacco Exam: Pre-Anes Outpt Exam: alert, oriented x 3, clear to auscultation bilaterally and regular rate & rhythm Airway: Cervical ROM: WNL MP: 1 Additional comments: missing Pulmonary: Pulmonary: COPD and Sleep apnea CV/HEM: CV/HEM: CAD, DVT and HTN Comments: Factor V ledien : : None reported Hepatic: Hepatic: None reported GI: GI: None reported Metabolic: Metabolic: Hyperlipidemia and None reported Musc/skel: Musc/skel: None reported Neuropsych: Neuropsych: TIA (7 years ago) Anesthetic Plan: ASA status: 3 Anesthesia: MAC Risk of > 500 ml blood loss (7ml/kg in children): No Meds/Allergies Current Medications: Current Medications Generic Name Dose Route Start Last Admin Trade Name Freq PRN Reason Stop Dose Admin Sodium Chloride 1,000 mls @ 30 ml s/hr 02/25/20 10:00 02/25/20 10:09 Sodium Chloride 0.9% IV 02/26/20 09:59 30 mls/hr .Q24H KAYA Administration PFSH Anesthesia PFSH: Medical History (Updated 02/23/20 @ 00:00 by ) Alcohol abuse Anticoagulant long-term use CAD (coronary artery disease) Constipation COPD (chronic obstructive pulmonary disease) Depression with anxiety Family history of factor V Leiden mutation Frequent urinary tract infections GERD (gastroesophageal reflux disease) History of GI bleed Hx of deep venous thrombosis Hx pulmonary embolism Hyperlipidemia Hypertension KIANA (obstructive sleep apnea) Restless leg syndrome Surgical History History of esophagogastroduodenoscopy (EGD) (~2008) Hx of arthroscopy of shoulder Family History Father CAD (coronary artery disease) Denies family history of Anesthesia complication Bleeding disorder Social History Smoking and tobacco status: never smoked Quit status (tobacco): has quit using tobacco Year quit tobacco: 2017 Former quit date comment: smoked 70 pack yr x 30 yrs Second hand smoke exposure: No Alcohol intake: former Year of sobriety/quit date alcohol: 2016 Lives independently: Yes Household members: spouse Marital status: service: No Current occupational status: retired History of recent travel: No Current gender identity: Male Data Anesthesia Cardiac Studies: No Data to Display
[2020-02-25 11:45] VITALS: BP 86/63; PULSE 62; RESP 16; TEMP 36.3; O2SAT 100
--- NOTE | 2020-02-25 11:50 | ANE.PACU2 ---
Inpatient post-anesthesia follow up: Airway intact: Yes Vital signs: Temperature 97.4 F Pulse Rate 62 Respiratory Rate 16 Blood Pressure 86/63 Pulse Oximetry 100 Oxygen Delivery Me thod Nasal Cannula Oxygen Flow Rate 2 Fraction of Inspir ed Oxygen Hydration adequate: Yes Nausea and vomiting: No Pain level: 1 Mental status: Baseline
[2020-02-25 11:55] VITALS: BP 106/69; PULSE 64; RESP 18; O2SAT 99
--- NOTE | 2020-02-26 16:56 | W.PM.OPSUD ---
Surgery/Procedure H&P Update DATE OF PROCEDURE: February 26, 2020 DATE H&P PERFORMED: 02/02/20 H&P UPDATE INFORMATION: I have reviewed H&P completed within last 30 days, I have examined patient prior to procedure and No changes to prior documentation PREOP DIAGNOSIS: Weight loss, constipation PLANNED PROCEDURE: Operation Date: 02/25/20 11:10 Proposed Procedures p EGD(Not Applicable) - Cb Chairez MD s Colonoscopy(Not Applicable) - Cb Chairez MD
== END 2020-02-25 12:24 | disposition home or self-care (01) ==
PROVIDERS: PCP Nurse Practitioner Family; Visit Provider Surgery
PROC: 0DJ08ZZ Inspection of Upper Intestinal Tract, Via Natural or Artificial Opening Endoscopic (ICD-10-PCS; CPT 43235; principal; 2020-02-25 11:10)
PROC: 0DJD8ZZ Inspection of Lower Intestinal Tract, Via Natural or Artificial Opening Endoscopic (ICD-10-PCS; CPT 45378; 2020-02-25 11:10)
DX: K59.00 Constipation, unspecified (principal); R63.4 Abnormal weight loss; Z68.22 Body mass index [BMI] 22.0-22.9, adult; K20.9 Esophagitis, unspecified; K44.9 Diaphragmatic hernia without obstruction or gangrene; K29.80 Duodenitis without bleeding; K57.30 Diverticulosis of large intestine without perforation or abscess without bleeding; K64.8 Other hemorrhoids; I25.10 Atherosclerotic heart disease of native coronary artery without angina pectoris; J44.9 Chronic obstructive pulmonary disease, unspecified; E78.5 Hyperlipidemia, unspecified; I10 Essential (primary) hypertension; G47.33 Obstructive sleep apnea (adult) (pediatric); Z87.891 Personal history of nicotine dependence; Z86.718 Personal history of other venous thrombosis and embolism; Z86.73 Personal history of transient ischemic attack (TIA), and cerebral infarction without residual deficits; Z86.711 Personal history of pulmonary embolism
CPT/HCPCS: 12345; 43235; 45378; 85610; J0171; J2704; J7030

== ENCOUNTER → 2020-02-26 09:46 | Outpatient (BNVA) | payer MEDICARE, SELFPAY | PROVIDERS: PCP Nurse Practitioner Family; Visit Provider Urology | DX: N30.01 Acute cystitis with hematuria (principal) | CPT/HCPCS: 81001 ==

== ENCOUNTER → 2020-03-07 09:51 | Outpatient (BNVA) | payer MEDICARE, SELFPAY | PROVIDERS: PCP Nurse Practitioner Family; Visit Provider Internal Medicine Hematology & Oncology | DX: D72.9 Disorder of white blood cells, unspecified (principal) | CPT/HCPCS: 80053; 85025 ==

== ENCOUNTER 2020-03-08 12:10 | Outpatient (CLI) | payer MEDICARE, SELFPAY ==
[2020-03-08 15:21] LABS: Alanine Aminotransferase 20 U/L (0-41); Albumin Level 4.2 g/dL (3.5-5.2); Alkaline Phosphatase 72 IU/L (40-130); Anion Gap 16.9 (5-19); Aspartate Amino Transferase 20 U/L (0-40); Blood Urea Nitrogen 16 mg/dL (8-23); Calcium 9.9 mg/dL (8.5-10.5); Carbon Dioxide 27 mmol/L (22-29); Chloride 102 mmol/L (98-107); Glomerular Filtration Rate 96.1 mL/min (90-130); Glucose 87 mg/dL (65-115); Lactate Dehydrogenase 169 U/L (135-225); Osmolality Calculated 290 mOsm/kg (285-295); Potassium 3.9 mmol/L (3.5-5.1); Sodium 142 mmol/L (136-145); Total Bilirubin 1.2 mg/dL (0.15-1.2); Total Protein 6.2 g/dL (6.6-8.7)
[2020-03-08 15:38] LABS: Eosinophils % 0.8 %; Hematocrit 39.4 % (42.0-52.0); Hemoglobin 12.6 g/dL (11.7-16.6); Lymphocytes # 2.3 10^3/uL (0.8-4.8); Lymphocytes % 45.8 %; Mean Platelet Volume 10.5 fL (7.4-10.4); Monocytes # 0.3 10^3/uL (0.2-0.9); Monocytes % 6.7 %; Neutrophils # 2.3 10^3/uL (1.8-7.7); Neutrophils % 46.5 %; Nucleated Red Blood Cells % 0 %; Platelet Count 180 10^3/cmm (130-400); Red Blood Count 3.94 10^6/uL (4.1-5.3); Red Cell Distribution Width 13.1 % (12.1-15.1)
[2020-03-09 19:57] LABS: LAB Peripheral Smear Sent for Review
== END 2020-03-08 12:11 | disposition home or self-care (01) ==
LOC: ONCMED 13:51
PROVIDERS: PCP Nurse Practitioner Family; Visit Provider Internal Medicine Hematology & Oncology
DX: D47.9 Neoplasm of uncertain behavior of lymphoid, hematopoietic and related tissue, unspecified (principal); D72.820 Lymphocytosis (symptomatic); R76.0 Raised antibody titer
CPT/HCPCS: 36415; 80053; 80500; 83615; 85025

== ENCOUNTER 2020-03-09 14:54 | Outpatient (CLI) | payer MEDICARE, SELFPAY ==
--- NOTE | 2020-03-09 16:17 | ONC FU_ITS ---
Dr. Edward follow up note Patient: Lei Azevedo Unit #: [id number]: 1950 Dicatated By: Rafaela Edward M.D.Date of Visit:Mar 09, 2020 Onc Med Follow-up/Prog Note History of Present Illness: Mr. Lei Azevedo, is a 69-year-old gentleman with history of right facial rash, diagnosed years ago at that time he was treated as a case of shingles but rash continue to progress and eventually patient experienced itching all over with skin dryness and also developed fausto feeling all over the skin and in the mouth and due to fausto feeling and dryness in his mouth, he could not eat much although he has a good appetite and he has lost about 55 pounds in a year. Patient said he has seen dermatology, Dr. Nava in [place] and he has been getting injection Dupixent and applying mixture of 2 creams tacrolimus and ketoconazole still having dryness of skin as well as fausto feeling in his mouth and all over the skin. Extensive work-up including THELMA screen which came back positive, nuclear, speckled, speckled pattern is associated with mixed connective tissue disease, systemic lupus erythematosus, Sjogren's syndrome, HIV screening was negative mono test was negative, hepatitis panel was negative and whole blood flow cytometry done on January 21, 2020 showed 13% clonal CD5 B cells. Etiology could be CLL or small lymphocytic lymphoma or monoclonal B-cell lymphocytosis of uncertain significance. Patient denies any B symptoms, no night sweats, no recurrent fevers but weight loss again that is due to dry mouth and fausto feeling in his mouth otherwise patient has good appetite. No peripheral lymphadenopathy No abdominal fullness., Patient denies any history of tick bite or exposure to any chemicals/pesticide, patient is a valderrama.CT scan of chest done on January 14, 2020 shows moderate chronic emphysematous changes. Stable pleural-based calcification right lung. No suspicious pulmonary parenchymal opacities. CT scan of abdomen pelvis done on February 05, 2020 showed right pleural-based plaques likely due to prior asbestosis exposure. Moderate-sized hiatal hernia. Left adrenal mass is stable and most consistent with adenoma. Underwent colonoscopy and EGD on February 25, 2020 and EGD showed grade a esophagitis, hiatal hernia, and mild duodenitis, patient was started on Protonix 40 mg daily Colonoscopy showed internal hemorrhoids and scattered diverticuli in sigmoid colon otherwise unremarkable Came for follow-up, denies any specific complaint except persistent dryness of skin and dry mouth and bilateral small and medium size joint stiffness. No night sweats, no fever or chills, no weight loss. Medications: Aspirin 1 Tablet (of 325 mg) Oral daily, Bactrim DS 1 Tablet (of 800-160 mg) Oral b.i.d., Cetirizine HCl 1 Tablet (of 10 mg) Oral daily, Coumadin 1.5 Tablet (of 2 mg) Oral daily, Metoprolol Tartrate 1 Tablet (of 25 mg) Oral b.i.d., Pantoprazole Sodium 1 Tablet (of 40 mg) Tablet, enteric coated Oral daily, Rosuvastatin Calcium 1 Tablet (of 40 mg) Oral at bedtime, Tamsulosin HCl 1 CA 125 Units/mL (of 0.4 mg) Capsule Oral b.i.d. Allergies: No Known Allergies. Review of Systems: Review of Systems is not available for this patient. Vital Signs: Performed on Mar 09, 2020 15:14 Height - 71.00 in Weight - lbs Temperature - 97.7 F (LOW) Pulse - 85 /min Respiration - 20 /min BP - 85/61 mm(hg) (LOW) O2 Sat - 98 % Pain - 0 Performance Status: 1 - No physically strenuous activity, but ambulatory and able to carry out light or sedentary work (e.g. office work, light house work). (ECOG) Physical Examination: ENMT - Dry mouth, no mouth sores or thrush, Respiratory - Lungs are clear, Cardiovascular - Regular rate and rhythm of heart, Abdomen - Soft, bowel sounds present, Extremities - No visible edema. Lab/Imaging: Most recent lab results are not available for this patient. 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 And Clinically, patient doing fine with no B symptoms, his follow-up labs shows normal CBC with a normal differential, peripheral blood smear was ordered, not been read by pathology, will follow. blood flow cytometry is pending. CT scan of chest abdomen pelvis done in the recent past was reviewed and findings were discussed and also recently underwent EGD and colonoscopy, reports were discussed. Patient will return to clinic in 1 month with CBC and differential at that time will have whole blood flow cytometry report back if it shows persistent monoclonal B-cell population then will consider holding Dupixent injection and tacrolimus for a month and repeat flow cytometry. As for his bilateral joint stiffness and dryness mouth and skin is concerned, patient has THELMA positive, possibly connective tissue disorder like sjogren's or SLE or dermatomyositis., Will refer him to rheumatology for evaluation. Signed By: Rafaela Edward M.D. <<Signature on File>>
== END 2020-03-09 14:55 | disposition home or self-care (01) ==
LOC: ONCMED 15:03
PROVIDERS: PCP Nurse Practitioner Family; Visit Provider Internal Medicine Hematology & Oncology
DX: D72.820 Lymphocytosis (symptomatic) (principal); R76.0 Raised antibody titer; M25.60 Stiffness of unspecified joint, not elsewhere classified; R68.2 Dry mouth, unspecified
CPT/HCPCS: 99214

== ENCOUNTER → 2020-03-25 09:00 | Outpatient (BNVA) | payer MEDICARE, SELFPAY | PROVIDERS: PCP Nurse Practitioner Family; Visit Provider Nurse Practitioner Family | DX: I48.91 Unspecified atrial fibrillation (principal); R05 Cough | CPT/HCPCS: 85610; 87635 ==

== ENCOUNTER 2020-04-06 12:50 | Outpatient (CLI) | payer MEDICARE, SELFPAY ==
[2020-04-06 14:06] LABS: Eosinophils # 0.1 10^3/uL (0.0-0.8); Eosinophils % 2.4 %; Hematocrit 40.5 % (42.0-52.0); Hemoglobin 13.2 g/dL (11.7-16.6); Lymphocytes # 2.4 10^3/uL (0.8-4.8); Lymphocytes % 47.4 %; Mean Corpuscular HGB Conc 32.6 g/dL (30.0-36.0); Mean Corpuscular Volume 98.3 fL (80-94); Mean Platelet Volume 9.4 fL (7.4-10.4); Monocytes # 0.4 10^3/uL (0.2-0.9); Monocytes % 8.8 %; Neutrophils # 2.06 10^3/uL (1.8-7.7); Neutrophils % 41.2 %; Nucleated Red Blood Cells % 0 %; Platelet Count 176 10^3/cmm (130-400); Red Blood Count 4.12 10^6/uL (4.1-5.3); Red Cell Distribution Width 12.7 % (12.1-15.1)
--- NOTE | 2020-04-06 15:25 | ONC FU_ITS ---
Dr. Edward follow up note Patient: Lei Azevedo Unit #: [id number]: 1950 Dicatated By: Rafaela Edward M.D.Date of Visit:Apr 06, 2020 Onc Med Follow-up/Prog Note History of Present Illness: Mr. Lei Azevedo, is a 70-year-old gentleman with history of right facial rash, diagnosed years ago at that time he was treated as a case of shingles but rash continue to progress and eventually patient experienced itching all over with skin dryness and also developed fausto feeling all over the skin and in the mouth and due to fausto feeling and dryness in his mouth, he could not eat much although he has a good appetite and he has lost about 55 pounds in a year. Patient said he has seen dermatology, Dr. Nava in [place] and he has been getting injection Dupixent and applying mixture of 2 creams tacrolimus and ketoconazole still having dryness of skin as well as fausto feeling in his mouth and all over the skin. Extensive work-up including THELMA screen which came back positive, nuclear, speckled, speckled pattern is associated with mixed connective tissue disease, systemic lupus erythematosus, Sjogren's syndrome, HIV screening was negative mono test was negative, hepatitis panel was negative and whole blood flow cytometry done on January 21, 2020 showed 13% clonal CD5 B cells. Etiology could be CLL or small lymphocytic lymphoma or monoclonal B-cell lymphocytosis of uncertain significance. Patient denies any B symptoms, no night sweats, no recurrent fevers but weight loss again that is due to dry mouth and fausto feeling in his mouth otherwise patient has good appetite. No peripheral lymphadenopathy No abdominal fullness., Patient denies any history of tick bite or exposure to any chemicals/pesticide, patient is a valderrama.CT scan of chest done on January 14, 2020 shows moderate chronic emphysematous changes. Stable pleural-based calcification right lung. No suspicious pulmonary parenchymal opacities. CT scan of abdomen pelvis done on February 05, 2020 showed right pleural-based plaques likely due to prior asbestosis exposure. Moderate-sized hiatal hernia. Left adrenal mass is stable and most consistent with adenoma. Underwent colonoscopy and EGD on February 25, 2020 and EGD showed grade a esophagitis, hiatal hernia, and mild duodenitis, patient was started on Protonix 40 mg daily Colonoscopy showed internal hemorrhoids and scattered diverticuli in sigmoid colon otherwise unremarkable Came for follow-up, denies any specific complaints, no fever chills, no nausea or vomiting, no diarrhea or constipation, no night sweats, no recurrent fever, no peripheral lymphadenopathy, no abdominal fullness, no weight loss but persistent itching and scaly skin involving upper extremities and back, itching is under control with hydroxyzine Medications: Aspirin 1 Tablet (of 325 mg) Oral daily, Bactrim DS 1 Tablet (of 800-160 mg) Oral b.i.d., Cetirizine HCl 1 Tablet (of 10 mg) Oral daily, Coumadin 1.5 Tablet (of 2 mg) Oral daily, Metoprolol Tartrate 1 Tablet (of 25 mg) Oral b.i.d., Pantoprazole Sodium 1 Tablet (of 40 mg) Tablet, enteric coated Oral daily, Rosuvastatin Calcium 1 Tablet (of 40 mg) Oral at bedtime, Tamsulosin HCl 1 CA 125 Units/mL (of 0.4 mg) Capsule Oral b.i.d. Allergies: No Known Allergies. Review of Systems: Constitutional - Appetite is poor and weight is decreasing. No fever, night sweats, or hot flashes. Energy level is poor, ENMT - Positive for sinus congestion/drainage. No mouth sores. No sore throat or difficulty swallowing, Hematologic/Lymphatic - Positive for easy bruising, Respiratory - Positive for shortness of breath and cough. No pleuritic pain or hemoptysis, Cardiovascular - No angina pain. No palpitations, Gastrointestinal - Positive for nausea, no vomiting. Positive for heartburn and acid reflux. Flucuates between diarrhea and constipation. No blood in the stool or black stools, Genitourinary (M) - No dysuria or hematuria. Positive for urinary frequency. No urgency or incontinence, Musculoskeletal - Positive for joint pain, Neurologic - No headache or dizziness. No numbness or tingling. No other focal neurologic symptoms, Psychiatric - Positive for anxiety and depression. No insomnia. Vital Signs: Performed on Apr 06, 2020 14:31 Height - 71.00 in Weight - 160.6 lbs (HIGH) BSA - 1.92 sq.m BMI - 22.40 Temperature - 97.6 F (LOW) Pulse - 73 /min Respiration - 20 /min BP - 104/69 mm(hg) O2 Sat - 100 % Pain - 6 Performance Status: 0 - Fully active, able to carry on all predisease activities without restrictions. (ECOG) Physical Examination: ENMT - No mouth sores, no thrush, no jaundice, Respiratory - Lungs are clear, Cardiovascular - Regular rate and rhythm of heart, Abdomen - Soft, bowel sounds present, Extremities - No visible edema, extensive flat scaly skin lesions involving back and upper extremities with scratch ibrahim. Lab/Imaging: Test performed on Mar 08, 2020 12:10 LDH (Total) 169 U/L Sodium 142 mmol/L Potassium 3.9 mmol/L Chloride 102 mmol/L CO2 27 mmol/L Anion Gap 16.9 BUN 16 mg/dL Creatinine 0.8 mg/dL Cr Clearance (Est) 93.49 mL/min eGFR 96.1 mL/min Glucose 87 mg/dL Calcium 9.9 mg/dL Protein, Total 6.2 g/dL Albumin 4.2 g/dL Globulin 2.0 g/dL Bilirubin, Total 1.2 mg/dL ALT (SGPT) 20 U/L AST (SGOT) 20 U/L Alkaline Phosphatase 72 IU/L WBC 5.0 10 3/uL RBC 3.94 10 6/uL HGB 12.6 g/dL HCT 39.4 % MCV 100.0 fL MCH 32.0 pg MCHC 32.0 g/dL RDW 13.1 % Platelet Count 180 10 3/cmm MPV 10.5 fL Neutrophils 2.3 10 3/uL Lymphocytes 2.3 10 3/uL Monocytes 0.3 10 3/uL Eosinophils 0.0 10 3/uL Basophils 0.0 10 3/uL Neutrophil % 46.5 % Lymphocyte % 45.8 % Monocyte % 6.7 % Eosinophil % 0.8 % Basophils % 0.0 % NRBC % 0 % 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 done on January 21, 2020 THELMA positive, speckled pattern Generalized itching with fausto feeling in the mouth and all over the skin, now being treated with dupixent and topical tacrolimus/ketoconazole Weight loss, due to dry mouth Plan: Discussed with patient regarding his labs white blood count 5 hemoglobin 13.2 hematocrit 40.5 platelets 176,000 absolute lymphocyte count is 2400 repeat whole blood flow cytometry showed low level light chain restricted B-cell population that expressed CD19, CD5, kappa light chains, CD23 and is negative for lambda. Clinically, doing well except chronic itching and scaly skin involving back and upper extremities otherwise patient has no B symptoms, no peripheral lymphadenopathy no organomegaly and follow-up whole blood flow cytometry showed minor population of CD positive B cells that coexpress CD19, CD 5, kappa light chain, CD23 and negative for lambda, could be due to very early chronic lymphocytic leukemia but his absolute lymphocyte count is less than 5000 and there is no evidence of lymphadenopathy or organomegaly so could be early monoclonal B-cell proliferative disorder or or due to medications like tacrolimus, or reactive to the underlying connective tissue disorder/skin disorder. Patient has been referred to rheumatology for evaluation as he is THELMA positive, speckled pattern. From hematological point of view, no further work-up rather observation, will repeat his CBC with differential in 6 months. In the meantime patient will see rheumatology, and in future if patient has progressive leukocytosis/lymphocytosis or B symptoms or lymphadenopathy, will consider work-up otherwise observe.Patient was requesting prescription for hydroxyzine for itching, which was given. Signed By: Rafaela Edward M.D. <<Signature on File>>
== END 2020-04-06 12:51 | disposition home or self-care (01) ==
PROVIDERS: PCP Nurse Practitioner Family; Visit Provider Internal Medicine Hematology & Oncology
DX: D72.820 Lymphocytosis (symptomatic) (principal); R76.0 Raised antibody titer; L29.9 Pruritus, unspecified; R23.4 Changes in skin texture; R63.4 Abnormal weight loss; R68.2 Dry mouth, unspecified; Z68.22 Body mass index [BMI] 22.0-22.9, adult
CPT/HCPCS: 85025; 99214

== ENCOUNTER → 2020-04-20 14:30 | Outpatient (BNVA) | payer MEDICARE, SELFPAY | PROVIDERS: PCP Nurse Practitioner Family; Visit Provider Nurse Practitioner Family | DX: L29.9 Pruritus, unspecified (principal); R19.7 Diarrhea, unspecified; N39.0 Urinary tract infection, site not specified | CPT/HCPCS: 80053; 81000; 84439; 84443; 84481; 85025 ==

== ENCOUNTER → 2020-04-22 13:47 | Outpatient (BNVA) | payer MEDICARE, SELFPAY | PROVIDERS: PCP Nurse Practitioner Family; Visit Provider Nurse Practitioner Family | DX: R19.7 Diarrhea, unspecified (principal) | CPT/HCPCS: 87338; 87493; 87506 ==

== ENCOUNTER → 2020-05-10 08:58 | Outpatient (BNVA) | payer MEDICARE, SELFPAY | PROVIDERS: PCP Nurse Practitioner Family; Referring Provider Nurse Practitioner Family; Visit Provider Dermatology | DX: R20.9 Unspecified disturbances of skin sensation (principal); B37.0 Candidal stomatitis; L71.8 Other rosacea | CPT/HCPCS: 99203; 99204 ==

== ENCOUNTER → 2020-06-01 15:25 | Outpatient (BNVA) | payer MEDICARE, SELFPAY | PROVIDERS: PCP Nurse Practitioner Family; Visit Provider Dermatology | DX: R20.9 Unspecified disturbances of skin sensation (principal); R20.2 Paresthesia of skin; F54 Psychological and behavioral factors associated with disorders or diseases classified elsewhere; G62.9 Polyneuropathy, unspecified | CPT/HCPCS: 82607; 84252; 84425; 99213 ==

== ENCOUNTER → 2020-06-14 13:12 | Outpatient (BNVA) | payer MEDICARE, SELFPAY | PROVIDERS: PCP Nurse Practitioner Family; Visit Provider Internal Medicine Rheumatology | DX: M19.90 Unspecified osteoarthritis, unspecified site (principal); Z79.899 Other long term (current) drug therapy; F22 Delusional disorders; R76.8 Other specified abnormal immunological findings in serum | CPT/HCPCS: 36415; 80306; 82306; 85651; 86140; 86431; 99204 ==

== ENCOUNTER 2020-06-28 08:09 | Outpatient (CLI) | payer MEDICARE, SELFPAY ==
--- NOTE | 2020-06-28 08:30 | XR_ITS ---
WS: [id number] PROCEDURE: XR chest 2V* [id number] CLINICAL INFORMATION: joint pain COMPARISON: February 15, 2020 FINDINGS: Heart: Normal cardiac silhouette. Aortic calcification. Lungs: Moderate chronic emphysematous changes. Stable right pleural plaques. A few calcified granulom as. No acute pulmonary infiltrates. Bones: Hypertrophic changes thoracic spine. XR/XR chest 2V* [id number] IMPRESSION: 1. Moderate chronic emphysematous changes. No acute pulmonary infiltrates. 2. Chronic right pleural plaques. A few calcified granulomas.
--- NOTE | 2020-06-28 09:00 | XR_ITS ---
WS: [id number] HAND LEFT TECHNIQUE: 3 views of the left hand CLINICAL INFORMATION: joint pain COMPARISON: None. FINDINGS: Hypertrophic changes at the distal radial ulnar joint.Mild degenerative arthritis first CMC and STT. Mild joint space narrowing involving the PIP and DIP joints with a few tiny periarticular erosions. A few small erosions involving the metacarpal heads. Radiocarpal joint: Mild narrowing XR/XR hand LT min 3V* [id number] IMPRESSION: 1. Mild degenerative arthritis first CMC and STT. 2. Mild joint space narrowing involving the PIP and DIP joints with a few tiny periarticular erosions. A few small erosions involving the metatarsal heads.
--- NOTE | 2020-06-28 09:30 | XR_ITS ---
WS: [id number] HAND RIGHT TECHNIQUE: 3 views of the right hand CLINICAL INFORMATION: joint pain COMPARISON: None. FINDINGS: Mild degenerative arthritis first CMC and STT. Mild joint space narrowing involving the PIP and DIP j oints with a few tiny periarticular erosions. A few small erosions involving the metacarpal heads. Radiocarpal joint: Mild narrowing XR/XR hand RT min 3V* [id number] IMPRESSION: 1. Mild degenerative arthritis first CMC and STT. 2. Mild joint space narrowing involving the PIP and DIP joints with a few tiny periarticular erosions. 3. A few small erosions involving the metatarsal heads.
--- NOTE | 2020-06-28 10:00 | XR_ITS ---
WS: [id number] FOOT RIGHT TECHNIQUE: 3 views of the right foot CLINICAL INFORMATION: joint pain COMPARISON: None. FINDINGS: Osteopenia. Mild hallux valgus. Degenerative narrowing worse involving the second through fifth DIP j oints. Hammertoe deformities. Normal metatarsals. Small plantar calcaneal spur. A few small erosions involving the metatarsal heads. XR/XR foot RT min 3V* [id number] IMPRESSION: 1. Osteopenia with mild hallux valgus. 2. DIP joint space narrowing worse involving the second through fifth phalange s 3. A few small erosions involving the metatarsal heads.
--- NOTE | 2020-06-28 10:30 | XR_ITS ---
WS: [id number] FOOT LEFT TECHNIQUE: 3 views of the left foot CLINICAL INFORMATION: joint pain COMPARISON: None. FINDINGS: Osteopenia. Mild hallux valgus. A few small erosions involving the metatarsal heads. IP joint space n arrowing worse involving the second through fifth DIP joints. Hammertoe deformities. Achilles entheso phyte. Plantar calcaneal spurring. XR/XR foot LT min 3V* [id number] IMPRESSION: 1. Mild hallux valgus. 2. A few smaller erosions involving the metatarsal heads. 3. IP joint narrowing worse involving the DIP joints.
--- NOTE | 2020-06-28 11:00 | XR_ITS ---
WS: [id number] KNEE RIGHT TECHNIQUE: 3 views of the right knee CLINICAL INFORMATION: joint pain COMPARISON: None. FINDINGS: Right knee is normal in appearance. No evidence of acute fracture dislocation. No significant effusio n. Patella is normal. Vascular calcification. Mild degenerative arthritis with mild joint space narro wing medial joint compartment. XR/XR knee RT 3V* [id number] IMPRESSION: Mild degenerative arthritis with mild medial compartment narrowing.
--- NOTE | 2020-06-28 11:30 | XR_ITS ---
WS: [id number] KNEE LEFT TECHNIQUE: 3 views of the left knee CLINICAL INFORMATION: joint pain COMPARISON: None. FINDINGS: Left knee is normal in appearance. No evidence of acute fracture dislocation. No significant effusion . Patella is normal. Mild joint space narrowing Medial joint compartment. Vascular calcification. XR/XR knee LT 3V* [id number] IMPRESSION: Mild joint space narrowing medial joint compartment.
== END 2020-06-28 08:10 | disposition home or self-care (01) ==
LOC: RADWPI 08:12
PROVIDERS: PCP Nurse Practitioner Family; Visit Provider Internal Medicine Rheumatology
DX: M25.50 Pain in unspecified joint (principal); J84.10 Pulmonary fibrosis, unspecified; M25.562 Pain in left knee; M25.561 Pain in right knee; M17.11 Unilateral primary osteoarthritis, right knee; M20.12 Hallux valgus (acquired), left foot; M20.11 Hallux valgus (acquired), right foot; M85.872 Other specified disorders of bone density and structure, left ankle and foot; M85.871 Other specified disorders of bone density and structure, right ankle and foot; M19.042 Primary osteoarthritis, left hand; M19.041 Primary osteoarthritis, right hand; M85.842 Other specified disorders of bone density and structure, left hand; M85.841 Other specified disorders of bone density and structure, right hand
CPT/HCPCS: 71046; 73130; 73562; 73630; 99214

== ENCOUNTER → 2020-07-11 08:38 | Outpatient (BNVA) | payer MEDICARE, SELFPAY | PROVIDERS: PCP Nurse Practitioner Family; Visit Provider Psychiatry & Neurology Psychiatry | DX: F41.1 Generalized anxiety disorder (principal); F33.3 Major depressive disorder, recurrent, severe with psychotic symptoms | CPT/HCPCS: 99204 ==

== ENCOUNTER → 2020-08-29 10:13 | Outpatient (BNVA) | payer MEDICARE, SELFPAY | PROVIDERS: PCP Nurse Practitioner Family; Visit Provider Urology | DX: N39.0 Urinary tract infection, site not specified (principal) | CPT/HCPCS: 81003 ==

== ENCOUNTER → 2020-09-28 07:58 | Outpatient (BNVA) | payer MEDICARE, SELFPAY | PROVIDERS: PCP Nurse Practitioner Family; Visit Provider Psychiatry & Neurology Psychiatry | DX: F33.3 Major depressive disorder, recurrent, severe with psychotic symptoms (principal); F41.1 Generalized anxiety disorder | CPT/HCPCS: 99213 ==

== ENCOUNTER → 2020-10-03 14:44 | Outpatient (BNVA) | payer MEDICARE, SELFPAY | PROVIDERS: PCP Nurse Practitioner Family; Visit Provider Internal Medicine Rheumatology | DX: M19.90 Unspecified osteoarthritis, unspecified site (principal); R76.8 Other specified abnormal immunological findings in serum; Z79.899 Other long term (current) drug therapy; L29.9 Pruritus, unspecified; F22 Delusional disorders; Z87.891 Personal history of nicotine dependence | CPT/HCPCS: 99214 ==

== ENCOUNTER → 2020-10-04 11:12 | Outpatient (BNVA) | payer MEDICARE, SELFPAY | PROVIDERS: PCP Nurse Practitioner Family; Visit Provider Nurse Practitioner Family | DX: I10 Essential (primary) hypertension (principal); M19.90 Unspecified osteoarthritis, unspecified site; M35.9 Systemic involvement of connective tissue, unspecified; Z79.899 Other long term (current) drug therapy; E78.5 Hyperlipidemia, unspecified; J44.9 Chronic obstructive pulmonary disease, unspecified | CPT/HCPCS: 80053; 80061; 82248; 85007; 85025; 85027; 85651; 86140 ==

== ENCOUNTER → 2020-12-23 12:01 | Outpatient (BNVA) | payer MEDICARE, SELFPAY | PROVIDERS: PCP Nurse Practitioner Family; Visit Provider Psychiatry & Neurology Psychiatry | DX: F33.3 Major depressive disorder, recurrent, severe with psychotic symptoms (principal); F41.1 Generalized anxiety disorder | CPT/HCPCS: 99214 ==

== ENCOUNTER → 2021-02-03 12:03 | Outpatient (BNVA) | payer MEDICARE, SELFPAY | PROVIDERS: PCP Nurse Practitioner Family; Visit Provider Psychiatry & Neurology Psychiatry | DX: F33.3 Major depressive disorder, recurrent, severe with psychotic symptoms (principal); F41.1 Generalized anxiety disorder | CPT/HCPCS: 99214 ==

== ENCOUNTER → 2021-02-21 11:58 | Outpatient (BNVA) | payer MEDICARE, SELFPAY | PROVIDERS: PCP Nurse Practitioner Family; Visit Provider Nurse Practitioner Family | DX: I10 Essential (primary) hypertension (principal); F22 Delusional disorders; J44.9 Chronic obstructive pulmonary disease, unspecified; Z86.711 Personal history of pulmonary embolism; E78.5 Hyperlipidemia, unspecified | CPT/HCPCS: 80053; 80061; 84443; 85025 ==

== ENCOUNTER → 2021-03-28 11:00 | Outpatient (BNVA) | payer MEDICARE, SELFPAY | PROVIDERS: PCP Nurse Practitioner Family; Visit Provider Internal Medicine Rheumatology | DX: M19.90 Unspecified osteoarthritis, unspecified site (principal); R76.8 Other specified abnormal immunological findings in serum; Z79.899 Other long term (current) drug therapy; M35.9 Systemic involvement of connective tissue, unspecified; Z87.891 Personal history of nicotine dependence | CPT/HCPCS: 99214 ==

== ENCOUNTER → 2021-03-31 13:13 | Outpatient (BNVA) | payer MEDICARE, SELFPAY | PROVIDERS: PCP Nurse Practitioner Family; Visit Provider Psychiatry & Neurology Psychiatry | DX: F33.3 Major depressive disorder, recurrent, severe with psychotic symptoms (principal); F41.1 Generalized anxiety disorder | CPT/HCPCS: 99214 ==

== ENCOUNTER → 2021-07-07 12:40 | Outpatient (BNVA) | payer MEDICARE, SELFPAY | PROVIDERS: PCP Nurse Practitioner Family; Visit Provider Psychiatry & Neurology Psychiatry | DX: F33.3 Major depressive disorder, recurrent, severe with psychotic symptoms (principal); F41.1 Generalized anxiety disorder | CPT/HCPCS: 99214 ==

== ENCOUNTER → 2021-12-19 11:51 | Outpatient (BNVA) | payer OTHER, SELFPAY | PROVIDERS: PCP Nurse Practitioner Family; Visit Provider Nurse Practitioner Family | DX: I25.10 Atherosclerotic heart disease of native coronary artery without angina pectoris (principal); I10 Essential (primary) hypertension; D64.9 Anemia, unspecified; G47.10 Hypersomnia, unspecified; I95.1 Orthostatic hypotension; Z12.5 Encounter for screening for malignant neoplasm of prostate; Z86.711 Personal history of pulmonary embolism | CPT/HCPCS: 80053; 80061; 82607; 82728; 82746; 83550; 83735; 84439; 84443; 85025; G0103 ==

== ENCOUNTER → 2022-01-04 10:42 | Outpatient (BNVA) | payer OTHER, SELFPAY | PROVIDERS: PCP Nurse Practitioner Family; Visit Provider Nurse Practitioner Family | DX: D64.9 Anemia, unspecified (principal); R97.20 Elevated prostate specific antigen [PSA] | CPT/HCPCS: 84153; 85025 ==

== ENCOUNTER 2022-01-19 20:54 | Emergency (ER) | payer MEDICARE, SELFPAY ==
[2022-01-19 21:21] VITALS: BP 124/79; PULSE 82; RESP 18; TEMP 36.6; O2SAT 95
[2022-01-19 22:29] VITALS: BP 125/83; PULSE 72; RESP 20; O2SAT 96
--- NOTE | 2022-01-19 22:55 | XRR_ITS ---
PROCEDURE INFORMATION: Exam: XR Chest Exam date and time: 01/19/2022 11:01 PM Age: 71 years old Clinical indication: Other: General weakness; Patient HX: C/O generalized weakness. History of cad and copd. Smoker. TECHNIQUE: Imaging protocol: XR of the chest. Views: 1 view. COMPARISON: CR XR chest 2V* [id number] 06/28/2020 8:51 AM FINDINGS: Lungs: No acute pneumonia or edema. Pleural spaces: There is right-sided pleural calcification as before. No pleural effusion or pneumothorax. Heart/Mediastinum: Unremarkable. No cardiomegaly. Bones/joints: Unremarkable. XR/XR chest 1V portable [id number] IMPRESSION: There are no acute concerning abnormalities. If there is desire for further evaluation, a CT scan could be performed.
--- NOTE | 2022-01-19 22:57 | ECG_ITS ---
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 Measurements Intervals [place] Rate: 69 P: -30 HI: 185 QRS: 12 QRSD: 80 T: 26 QT: 385 QTc: 413 Interpretive Statements SINUS RHYTHM Compared to ECG 02/23/2017 16:36:09 No significant changes Electronically Signed On 01-20-2022 21:56:39 CDT by Isabel Mark M.D. [id number]
--- NOTE | 2022-01-19 23:43 | W.ED.WEAKNES ---
HPI - Weakness General: Chief complaint: Weakness Stated complaint: not feeling good Time Seen by Provider: 01/19/22 22:32 Source: patient and family History of Present Illness: 71-year-old male who has not been feeling well for quite some time. He seemed worse to his family tonight so they brought him to the hospital. He has been sleepy, generally weak, has some mild mental status changes, and has looked pale to family. He was seen by his PCP and taken off of his apixaban due to concerns over anemia and possible blood loss. The nurse practitioner put him on iron and B12 presumably for anemia. They deny fevers, chills, chest pain or significant abdominal pain. They deny vomiting. They have noted a weight loss over the past few months MD Complaint: generalized weakness Onset (ago): week(s) Duration: constant and progressively worsening Location: generalized Migration: none Severity: moderate Quality: other Relieving factors: none Exacerbating factors: exertion Associated symptoms: Reports confusion, melena and decreased appetite; Denies chest pain, chills, diaphoresis, dysuria, fever(s), headache(s), nausea, short of breath or vomiting Review of Systems Const: Denies: fever(s), chills or diaphoresis Eyes: Denies: change in vision Card: Denies: chest pain Resp: Denies: dyspnea, productive cough or non-productive cough GI: Reports: melena; Denies: abdominal pain, nausea or vomiting : Denies: dysuria Neuro: Reports: confusion; Denies: headache(s) [facility] ED PFSH: Medical History Alcohol abuse Anticoagulant long-term use CAD (coronary artery disease) Constipation COPD (chronic obstructive pulmonary disease) Delusional disorder Depression with anxiety Family history of factor V Leiden mutation Frequent urinary tract infections Frequent urinary tract infections GERD (gastroesophageal reflux disease) High risk medication use History of GI bleed Hx of deep venous thrombosis Hx pulmonary embolism Hyperlipidemia Hypertension Inflammatory arthritis Ocular rosacea KIANA (obstructive sleep apnea) Psychiatric care Restless leg syndrome Undifferentiated connective tissue disease Surgical History History of colonoscopy 2020 History of esophagogastroduodenoscopy (EGD) (~2008) Hx of arthroscopy of shoulder Family History Father CAD (coronary artery disease) Other Hyperlipidemia Hypertension Rheumatoid arthritis Stroke Denies family history of Diabetes Lupus Chronic kidney disease (CKD) Anesthesia complication Bleeding disorder Cancer Social History Smoking and tobacco status: current every day smoker cigarettes Packs smoked per day: 0.25 Years cigarettes smoked: 50 Quit status (tobacco): has tried quititng Number of times tried to quit tobacco: 1 Second hand smoke exposure: Yes Alcohol intake: former Year of sobriety/quit date alcohol: 2016 Lives independently: Yes Household members: spouse Marital status: service: No Current occupational status: retired History of recent travel: No Current gender identity: Male Physical Exam Const: GENERAL APPEARANCE: cooperative, lethargic and frail appearing ORIENTATION/CONSCIOUSNESS: Yes oriented to person, Yes oriented to place, Yes oriented to time and Yes lethargic HENMT: COMMON NORMALS: normocephalic, atraumatic and Normal external nose present HEAD & SCALP: normocephalic and atraumatic FACE & SINUS: normal facial exam NOSE: Normal external nose present Eye: COMMON NORMALS: Equal, round and reactive pupils present and EOMs intact bilaterally PUPIL: Yes Equal, round and reactive pupils present Chest: COMMONS NORMALS: normal inspection of the chest Resp: COMMON NORMALS: normal respiratory effort, No use of accessory muscles and clear to auscultation bilaterally AUSCULTATION: clear to auscultation bilaterally Cardio: COMMON NORMALS: regular rate RATE: regular rate RHYTHM: abnormal rhythm irregularly irregular GI: COMMON NORMALS: Normal to inspection, nondistended, normoactive bowel sounds present, Soft to palpation and non-tender PALPATION: Yes Soft to palpation Extremity: GENERAL: No edema Neuro: SENSORIUM/ORIENTATION: Yes oriented to person, Yes oriented to place, Yes oriented to time and Yes lethargic Course Vital Signs: Vital signs: Vital Signs Temperature 98.8 F 01/20/22 03:01 Pulse Rate 74 01/20/22 03:01 Respiratory Rate 18 01/20/22 03:01 Blood Pressure 122/90 01/20/22 03:01 Pulse Oximetry 96 01/20/22 03:01 MDM - Weakness Medical Decision Making 71 year old gentleman with lethargy, mild mental status change, and urinary incontinence which seems new. He has a urinary tract infection on urinanalysis. He is afebrile. White blood cell count is 7.5. Hemoglobin 9.2. BMP is normal. He has received Brittani fluid, and one gram of ceftriaxone here. family was given the option of admission, but we'll take the patient home. They asked about home health options, and were referred to their PCP for this. He will go home on antibiotics. They know to return for any problems. Lab Data : 01/19/22 23:40 01/19/22 23:40 Radiology Impressions Chest X-Ray 01/19/22 22:55 IMPRESSION: There are no acute concerning abnormalities. If there is desire for further evaluation, a CT scan could be performed. Head CT 01/20/22 00:26 IMPRESSION: Negative for intracranial hemorrhage or mass effect Laboratory Results WBC 7.5 10^3/uL (4.0-10.0) 01/19/22 23:40 RBC 3.93 10^6/uL (4.1-5.3) L 01/19/22 23:40 Hgb 9.2 g/dL (11.7-16.6) L 01/19/22 23:40 Hct 32.0 % (42.0-52.0) L 01/19/22 23:40 MCV 81.4 fl (80-94) 01/19/22 23:40 MCH 23.4 pg (28.0-34.0) L 01/19/22 23:40 MCHC 28.8 g/dL (30.0-36.0) L 01/19/22 23:40 RDW 23.8 % (12.1-15.1) H 01/19/22 23:40 Plt Count 210 10^3/cmm (130-400) 01/19/22 23:40 MPV 10.2 fL (7.4-10.4) 01/19/22 23:40 Neut % (Auto) 64.9 % 01/19/22 23:40 Lymph % (Auto) 24.5 % 01/19/22 23:40 [place] % (Auto) 9.7 % 01/19/22 23:40 Eos % (Auto) 0.5 % 01/19/22 23:40 Baso % (Auto) 0.1 % 01/19/22 23:40 Neut # (Auto) 4.84 10^3/uL (1.8-7.7) 01/19/22 23:40 Lymph # (Auto) 1.8 10^3/uL (0.8-4.8) 01/19/22 23:40 [place] # (Auto) 0.7 10^3/uL (0.2-0.9) 01/19/22 23:40 Eos # (Auto) 0.0 10^3/uL (0.0-0.8) 01/19/22 23:40 Baso # (Auto) 0.0 10^3/uL (0.0-0.1) 01/19/22 23:40 Nucleated RBC % (auto) 0 % 01/19/22 23:40 Nucleated RBCs # 0.0 /100WBC 01/19/22 23:40 Sodium 137 mmol/L (136-145) 01/19/22 23:40 Potassium 4.1 mmol/L (3.5-5.1) 01/19/22 23:40 Chloride 100 mmol/L (98-107) 01/19/22 23:40 Carbon Dioxide 25 mmol/L (22-29) 01/19/22 23:40 Anion Gap 16.1 (5-19) 01/19/22 23:40 BUN 16 mg/dL (8-23) 01/19/22 23:40 Creatinine 1.0 mg/dL (0.7-1.2) 01/19/22 23:40 GFR Calculation 73.9 mL/min (90-130) L 01/19/22 23:40 Glucose 95 mg/dL (65-115) 01/19/22 23:40 Calculated Osmolality 285 mOsm/kg (285-295) 01/19/22 23:40 Calcium 9.4 mg/dL (8.5-10.5) 01/19/22 23:40 Magnesium 2.3 mg/dL (1.7-2.3) 01/19/22 23:40 Total Bilirubin 1.3 mg/dL (0.15-1.2) H 01/19/22 23:40 AST 9 U/L (0-40) 01/19/22 23:40 ALT < 5 U/L (0-41) 01/19/22 23:40 Alkaline Phosphatase 101 IU/L (40-130) 01/19/22 23:40 Creatine Kinase 58 U/L (39-308) 01/19/22 23:40 Troponin T Baseline 13 ng/L (0-15) 01/19/22 23:40 Troponin T 120 Minute 13.09 ng/L (0-15) 01/20/22 01:44 Delta Troponin T Not Reportable 01/20/22 01:44 C-Reactive Protein 24.3 mg/L (0.0-4.9) H 01/19/22 23:40 Total Protein 6.2 g/dL (6.6-8.7) L 01/19/22 23:40 Albumin 3.7 g/dL (3.5-5.2) 01/19/22 23:40 Globulin 2.5 g/dL (1.3-4.6) 01/19/22 23:40 Urine Color Dark yellow (Yellow) 01/20/22 01:20 Urine Appearance Sl hazy (CLEAR) 01/20/22 01:20 Urine pH 5 (5-7) 01/20/22 01:20 Ur Specific [place] 1.025 (1.005-1.030) 01/20/22 01:20 Urine Protein Neg (Negative) 01/20/22 01:20 Urine Glucose (UA) Norm (Normal) 01/20/22 01:20 Urine Ketones 1+ (Negative) H 01/20/22 01:20 Urine Blood 3+ (Negative) H 01/20/22 01:20 Urine Nitrate Positive (Negative) H 01/20/22 01:20 Urine Bilirubin 1+ (Negative) H 01/20/22 01:20 Urine Urobilinogen 1 mg/dL (Negative) H 01/20/22 01:20 Ur Leukocyte Esterase 2+ (Negative) H 01/20/22 01:20 Urine RBC 15-25 /hpf (0-2) H 01/20/22 01:20 Urine WBC >100 /hpf (0-5) H 01/20/22 01:20 Ur Squamous Epith Cells 5-10 /hpf (0-5) H 01/20/22 01:20 Amorphous Sediment Not Reportable 01/20/22 01:20 Urine Bacteria 4+ /hpf (NONE) H 01/20/22 01:20 Blood Type A Positive 01/19/22 23:40 Rho(D) Type Positive 01/19/22 23:40 Antibody Screen Negative 01/19/22 23:40 Discharge Plan Discharge Patient Disposition: Home Clinical Impression: Hypersomnia, Urinary tract infection Condition: Stable Prescriptions: New cefdinir 300 mg capsule 300 mg PO BID 10 Days Qty: 20 0RF No Action diclofenac sodium 1 % gel 2 g TOPICAL QID Qty: 100 2RF Rx Instructions: apply to affected area as needed Spiriva with HandiHaler 18 mcg capsule, w/inhalation device 1 cap INHALATION DAILY Qty: 30 3RF Rx Instructions: puncture 1 cap using device; one dose = 2 inhalations albuterol sulfate [Ventolin HFA] 90 mcg/actuation HFA aerosol inhaler 2 puff INHALATION QID PRN (Reason: shortness of breath or wheezing) Qty: 18 2RF hydroxychloroquine 200 mg tablet 200 mg PO BID Qty: 60 5RF nitroglycerin [Nitrostat] 0.4 mg tablet, sublingual 0.4 mg SUBLINGUAL Q5M PRN (Reason: Chest Pain) 0RF ketoconazole 2 % cream 1 applic TOPICAL BID 0RF tacrolimus 0.1 % ointment 1 applic TOPICAL BID 0RF clotrimazole 10 mg gissel 10 mg MUCOUS MEM TID Qty: 90 0RF Rx Instructions: Allow lozenge to dissolve completely in mouth 5 times daily for 2 weeks hydroxyzine HCl 25 mg tablet 25 mg PO BID PRN (Reason: anxiety) Qty: 60 2RF triamcinolone acetonide 0.1 % ointment 1 applic topical BID Qty: 453.6 1RF Rx Instructions: Apply to red itchy areas BID x 3 weeks fluoxetine 40 mg capsule 40 mg PO DAILY Qty: 30 2RF trazodone 50 mg tablet 100 mg PO .HS PRN (Reason: insomnia) Qty: 60 2RF Rx Instructions: Take 1 or 2 at night as needed paliperidone 9 mg tablet extended release 24hr 9 mg PO DAILY Qty: 30 2RF Eliquis 5 mg tablet See Rx Instructions .ROUTE .COMPLEX Qty: 60 5RF Dose Instruction: Take 1 tablet by mouth twice daily Rx Instructions: Take 1 tablet by mouth twice daily rosuvastatin [Crestor] 40 mg tablet 40 mg PO DAILY Qty: 90 1RF ferrous sulfate [Feosol] 325 mg (65 mg iron) tablet 325 mg PO BID Qty: 60 1RF Protonix 40 mg tablet,delayed release (DR/EC) 40 mg PO BID 30 Days Qty: 60 0RF prednisone 10 mg tablet See Rx Instructions PO DAILY Qty: 30 1RF Rx Instructions: 1 tab daily for 5-7 days prn pain flare PO daily; Aspirin Low Dose 81 mg Tablet,Delayed Release (Dr/Ec) 81 mg PO DAILY 0RF Discharge Orders: Discharge ED (Routine); Ordered 01/20/22 Ordered By: Mino Christian Referrals: Julia Benz FNP [Primary Care Provider] - Patient Instructions: Urinary Tract Infection in Older Adults (ED) Activity Restrictions/Additional Instructions: Return for worsening mental status, fever despite 2-3 doses of antibiotics, worsening weakness, vomiting liquids or medications, any other concerning symptoms. Coding Level of Care Code ED [employer] Service Technician for Devorah Fwd Exam Comprehensive
[2022-01-19 23:50] LABS: Basophils % 0.1 %; Eosinophils % 0.5 %; Hemoglobin 9.2 g/dL (11.7-16.6); Lymphocytes # 1.8 10^3/uL (0.8-4.8); Lymphocytes % 24.5 %; Mean Corpuscular HGB Conc 28.8 g/dL (30.0-36.0); Mean Corpuscular Hemoglobin 23.4 pg (28.0-34.0); Mean Corpuscular Volume 81.4 fl (80-94); Mean Platelet Volume 10.2 fL (7.4-10.4); Monocytes # 0.7 10^3/uL (0.2-0.9); Monocytes % 9.7 %; Neutrophils # 4.84 10^3/uL (1.8-7.7); Neutrophils % 64.9 %; Nucleated Red Blood Cells % 0 %; Platelet Count 210 10^3/cmm (130-400); Red Blood Count 3.93 10^6/uL (4.1-5.3); Red Cell Distribution Width 23.8 % (12.1-15.1); White Blood Count 7.5 10^3/uL (4.0-10.0)
[2022-01-20] MEDS: sodium chloride 0.9% 1,000 ML 999 ML IV (00:03)
[2022-01-20 00:11] LABS: Alanine Aminotransferase < 5 U/L (0-41); Albumin Level 3.7 g/dL (3.5-5.2); Alkaline Phosphatase 101 IU/L (40-130); Anion Gap 16.1 (5-19); Aspartate Amino Transferase 9 U/L (0-40); Blood Urea Nitrogen 16 mg/dL (8-23); C Reactive Protein 24.3 mg/L (0.0-4.9); Calcium 9.4 mg/dL (8.5-10.5); Carbon Dioxide 25 mmol/L (22-29); Chloride 100 mmol/L (98-107); Creatine Phosphokinase 58 U/L (39-308); Globulin 2.5 g/dL (1.3-4.6); Glomerular Filtration Rate 73.9 mL/min (90-130); Glucose 95 mg/dL (65-115); Magnesium 2.3 mg/dL (1.7-2.3); Osmolality Calculated 285 mOsm/kg (285-295); Potassium 4.1 mmol/L (3.5-5.1); Sodium 137 mmol/L (136-145); Total Bilirubin 1.3 mg/dL (0.15-1.2); Total Protein 6.2 g/dL (6.6-8.7)
[2022-01-20 00:12] LABS: Troponin(5th) Baseline 13 ng/L (0-15)
--- NOTE | 2022-01-20 00:26 | CTR_ITS ---
PROCEDURE INFORMATION: Exam: CT Head Without Contrast Exam date and time: 01/20/2022 12:48 AM Age: 71 years old Clinical indication: Altered mental status/memory loss; Confusion or disorientation; Patient HX: Ams/lethargy TECHNIQUE: Imaging protocol: Computed tomography of the head without contrast. Radiation optimization: All CT scans at this facility use at least one of these dose optimization techniques: automated exposure control; mA and/or kV adjustment per patient size (includes targeted exams where dose is matched to clinical indication); or iterative reconstruction. COMPARISON: CT head wo con* [id number] 05/24/2017 10:06 AM RADIATION DOSE METRICS: Total DLP (mGy-cm): 885.93 FINDINGS: Brain: Large amount diffuse white matter disease likely reflecting chronic microvascular ischemic changes. Cerebral ventricles: No ventriculomegaly. Paranasal sinuses: Visualized sinuses are unremarkable. No fluid levels. Mastoid air cells: Visualized mastoid air cells are well aerated. Bones/joints: Unremarkable. No acute fracture. Soft tissues: Unremarkable. CT/CT head wo con* [id number] IMPRESSION: Negative for intracranial hemorrhage or mass effect
--- NOTE | 2022-01-20 00:57 | ECG_ITS ---
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 Measurements Intervals [place] Rate: 67 P: -6 [place]: 173 QRS: 25 QRSD: 98 T: 39 QT: 410 QTc: 433 Interpretive Statements SINUS RHYTHM Compared to ECG 01/19/2022 23:04:00 No significant changes Baseline artifact, need to repeat Electronically Signed On 01-20-2022 22:01:56 CDT by Isabel Mark M.D. [email or web address]/[id number]
[2022-01-20 01:32] LABS: Specific Gravity, Urine 1.025 (1.005-1.030); Urine Appearance SL Hazy (CLEAR); Urine Color Dark Yellow (Yellow); pH Urine 5 (5-7)
[2022-01-20 01:33] LABS: Add Urine Microscopic? YES; Bilirubin Urine 1+ (Negative); Blood Urine 3+ (Negative); Glucose Urine UA Norm (Normal); Ketones Urine 1+ (Negative); Leukocyte Esterase Urine 2+ (Negative); Nitrate Urine Positive (Negative); Protein Urine Neg (Negative); Urobilinogen Urine 1 mg/dL (Negative)
[2022-01-20 01:36] LABS: Add Urine Culture? Yes; Bacteria Urine 4+ /hpf; RBC Urine 15-25 /hpf (0-2); WBC Urine >100 /hpf (0-5)
[2022-01-20 02:12] LABS: Troponin 5 2HR 13.09 ng/L (0-15)
[2022-01-20] MEDS: cefTRIAXone 1,000 MG in sodium chloride 0.9% (plus) 50 ML 100 MG IV (02:32)
[2022-01-20 03:01] VITALS: BP 122/90; PULSE 74; RESP 18; TEMP 37.1; O2SAT 96
== END 2022-01-20 02:55 | disposition home or self-care (01) ==
PROVIDERS: Emergency Provider Emergency Medicine; PCP Nurse Practitioner Family
DX: N39.0 Urinary tract infection, site not specified (principal); G47.10 Hypersomnia, unspecified; I25.10 Atherosclerotic heart disease of native coronary artery without angina pectoris; I10 Essential (primary) hypertension; E78.5 Hyperlipidemia, unspecified; F17.210 Nicotine dependence, cigarettes, uncomplicated; Z79.82 Long term (current) use of aspirin; Z79.01 Long term (current) use of anticoagulants
CPT/HCPCS: 70450; 71045; 80053; 81001; 82550; 83735; 84484; 85025; 86140; 86850; 86900; 87077; 87086; 87186; 93005; 96365; 99285; J0696; J7030

== ENCOUNTER 2022-01-23 17:35 | Emergency (ER) | payer MEDICARE, SELFPAY ==
--- NOTE | 2022-01-23 17:53 | XRR_ITS ---
PROCEDURE INFORMATION: Exam: XR Chest Exam date and time: 01/23/2022 6:58 PM Age: 71 years old Clinical indication: Chest wall pain; Additional info: Cp TECHNIQUE: Imaging protocol: XR of the chest. Views: 1 view. COMPARISON: CR (CHEST, ) 01/19/2022 11:01 PM FINDINGS: Lungs: Right lung calcified pleural plaques again seen. Minimal left mid lung calcified pleural plaque Pleural spaces: See Lungs finding. Heart/Mediastinum: Unremarkable. No cardiomegaly. Bones/joints: Unremarkable. XR/XR chest 1V portable [id number] IMPRESSION: Negative for infiltrate
--- NOTE | 2022-01-23 17:53 | ECG_ITS ---
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 Measurements Intervals [place] Rate: 87 P: 18 SC: 140 QRS: 38 QRSD: 79 T: 50 QT: 342 QTc: 414 Interpretive Statements SINUS RHYTHM NONSPECIFIC T-WAVE ABNORMALITY Compared to ECG 01/20/2022 01:52:12 T-wave abnormality now present Electronically Signed On 01-23-2022 22:57:44 CDT by Enzo Monge M.D. [email or web address] [email or web address]/store/[id number]
[2022-01-23 17:54] VITALS: BP 98/66; PULSE 85; RESP 16; TEMP 36.6; O2SAT 97
[2022-01-23 18:22] LABS: Eosinophils # 0.1 10^3/uL (0.0-0.8); Eosinophils % 1.9 %; Hematocrit 32.2 % (42.0-52.0); Hemoglobin 9.2 g/dL (11.7-16.6); Lymphocytes # 1.8 10^3/uL (0.8-4.8); Lymphocytes % 29.2 %; Mean Corpuscular HGB Conc 28.6 g/dL (30.0-36.0); Mean Corpuscular Hemoglobin 23.1 pg (28.0-34.0); Mean Corpuscular Volume 80.9 fl (80-94); Mean Platelet Volume 10.4 fL (7.4-10.4); Monocytes # 0.6 10^3/uL (0.2-0.9); Monocytes % 9.7 %; Neutrophils # 3.63 10^3/uL (1.8-7.7); Neutrophils % 58.9 %; Nucleated Red Blood Cells % 0 %; Platelet Count 236 10^3/cmm (130-400); Red Blood Count 3.98 10^6/uL (4.1-5.3); Red Cell Distribution Width 23.4 % (12.1-15.1); White Blood Count 6.2 10^3/uL (4.0-10.0)
--- NOTE | 2022-01-23 19:10 | ED_ITS ---
HPI - Chest Pain General: Chief Complaint: Chest Pain Stated Complaint: Chest Pain\Fidgety Time Seen by Provider: 01/23/22 19:10 History of Present Illness: 71-year-old male without any significant cardiac history presents to the emergency department with intermittent sharp left-sided chest pain. Patient denies any significant associated symptoms. He is a longtime smoker and has known COPD. He is not oxygen requiring or with chronic respiratory failure. The patient has not had any fever or chills. No productive cough that is different than usual no exposure to infectious disease that he knows of. Symptoms onset earlier today and are already much improved without any intervention. Review of Systems General: Reports: 10 or more systems reviewed and unremarkable except in HPI and below PFSH ED PFSH: Medical History Alcohol abuse Anticoagulant long-term use CAD (coronary artery disease) Constipation COPD (chronic obstructive pulmonary disease) Delusional disorder Depression with anxiety Family history of factor V Leiden mutation Frequent urinary tract infections Frequent urinary tract infections GERD (gastroesophageal reflux disease) High risk medication use History of GI bleed Hx of deep venous thrombosis Hx pulmonary embolism Hyperlipidemia Hypertension Inflammatory arthritis Ocular rosacea KIANA (obstructive sleep apnea) Psychiatric care Restless leg syndrome Undifferentiated connective tissue disease Surgical History History of colonoscopy 2020 History of esophagogastroduodenoscopy (EGD) (~2008) Hx of arthroscopy of shoulder Family History Father CAD (coronary artery disease) Other Hyperlipidemia Hypertension Rheumatoid arthritis Stroke Denies family history of Diabetes Lupus Chronic kidney disease (CKD) Anesthesia complication Bleeding disorder Cancer Social History Smoking and tobacco status: never smoked Quit status (tobacco): has tried quititng 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 Second hand smoke exposure: Yes Alcohol intake: former Year of sobriety/quit date alcohol: 2017 Lives independently: Yes Household members: spouse Marital status: service: No Current occupational status: retired History of recent travel: No Current gender identity: Male Physical Exam Const: COMMON NORMALS: no acute distress, patient oriented x3, alert and well nourished HENMT: COMMON NORMALS: normocephalic HEAD & SCALP: normocephalic Eye: COMMON NORMALS: Equal, round and reactive pupils present, EOMs intact bilaterally and conjunctivae normal CONJUNCTIVA: Yes conjunctivae normal PUPIL: Yes Equal, round and reactive pupils present Neck/C-Spine: COMMON NORMALS: full ROM, no lymphadenopathy, supple and no meningeal signs Chest: COMMONS NORMALS: normal inspection of the chest and normal palpation of entire chest wall Resp: COMMON NORMALS: normal respiratory effort, No retractions, No use of acc essory muscles, clear to auscultation bilaterally and percussion normal AUSCULTATION: clear to auscultation bilaterally PERCUSSION: percussion normal GI: COMMON NORMALS: Normal to inspection, nondistended, normoactive bowel sounds present, Soft to palpation, non-tender and No hepatosplenomegaly present PALPATION: Yes Soft to palpation and Yes No hepatosplenomegaly present : COMMON NORMALS: Yes no CVA tenderness BLADDER/KIDNEY EXAM: Yes no CVA tenderness Back/Pelvis: COMMON NORMALS: no CVA tenderness Extremity: COMMON NORMALS: normal to inspection, full ROM and capillary refill normal Neuro: COMMON NORMALS: patient oriented x3 SENSORIUM/ORIENTATION: Yes alert MENINGEAL SIGNS: Yes no meningeal signs Skin: COMMON NORMALS: no rashes or lesions noted, no wounds and turgor normal GENERAL SKIN EXAM: no rashes or lesions noted and turgor normal Course ED course: 71-year-old male in with atypical chest pain. Work-up here was largely unremarkable he has significant calcified pleural plaque and some chronic abnormalities but no acute findings in the chest. Troponin and delta troponin were nondiagnostic. He was chest pain-free and never did have to get any medication here he desires to go home without any further intervention or work-up. Follow-up with primary care if symptoms recur. Vital Signs: Vital signs: Vital Signs Temperature 97.9 F 01/23/22 17:54 Pulse Rate 71 01/23/22 19:11 Respiratory Rate 19 H 01/23/22 19:11 Blood Pressure 118/70 01/23/22 19:11 Pulse Oximetry 98 01/23/22 19:11 MDM - Chest Pain Medical Decision Making 71-year-old male in with concerns of atypical chest pain. His initial EKG shows a normal sinus rhythm without significant ST elevation or arrhythmia. Recommend complete work-up given his smoking history and advanced age. History is not particularly suspicious however. Lab Data : 01/23/22 18:03 01/23/22 18:03 Radiology Impressions Chest X-Ray 01/23/22 17:53 IMPRESSION: Negative for infiltrate Laboratory Results WBC 6.2 10^3/uL (4.0-10.0) 01/23/22 18: RBC 3.98 10^6/uL (4.1-5.3) L 01/23/22 18:03 Hgb 9.2 g/dL (11.7-16.6) L 01/23/22 18: Hct 32.2 % (42.0-52.0) L 01/23/22 18: MCV 80.9 fl (80-94) 01/23/22 18: MCH 23.1 pg (28.0-34.0) L 01/23/22 18: MCHC 28.6 g/dL (30.0-36.0) L 01/23/22 18: RDW 23.4 % (12.1-15.1) H 01/23/22 18: Plt Count 236 10^3/cmm (130-400) 01/23/22 18: MPV 10.4 fL (7.4-10.4) 01/23/22 18:03 Neut % (Auto) 58.9 % 01/23/22 18: Lymph % (Auto) 29.2 % 01/23/22 18: Falls % (Auto) 9.7 % 01/23/22 18: Eos % (Auto) 1.9 % 01/23/22 18:03 Baso % (Auto) 0.0 % 01/23/22 18: Neut # (Auto) 3.63 10^3/uL (1.8-7.7) 01/23/22 18: Lymph # (Auto) 1.8 10^3/uL (0.8-4.8) 01/23/22 18:03 Falls # (Auto) 0.6 10^3/uL (0.2-0.9) 01/23/22 18: Eos # (Auto) 0.1 10^3/uL (0.0-0.8) 01/23/22 18:03 Baso # (Auto) 0.0 10^3/uL (0.0-0.1) 01/23/22 18:03 Nucleated RBC % (auto) 0 % 01/23/22 18:03 Nucleated RBCs # 0.0 /100WBC 01/23/22 18:03 Sodium 138 mmol/L (136-145) 01/23/22 18: Potassium 3.5 mmol/L (3.5-5.1) 01/23/22 18:03 Chloride 100 mmol/L (98-107) 01/23/22 18:03 Carbon Dioxide 25 mmol/L (22-29) 01/23/22 18:03 Anion Gap 16.5 (5-19) 01/23/22 18: BUN 12 mg/dL (8-23) 01/23/22 18:03 Creatinine 1.0 mg/dL (0.7-1.2) 01/23/22 18: GFR Calculation 73.9 mL/min (90-130) L 01/23/22 18: Glucose 108 mg/dL (65-115) 01/23/22 18: Calculated Osmolality 286 mOsm/kg (285-295) 01/23/22 18: Calcium 9.4 mg/dL (8.5-10.5) 01/23/22 18: Total Bilirubin 0.7 mg/dL (0.15-1.2) 01/23/22 18:03 AST 13 U/L (0-40) 01/23/22 18: ALT < 5 U/L (0-41) 01/23/22 18: Alkaline Phosphatase 91 IU/L (40-130) 01/23/22 18:03 Troponin T Baseline 10 ng/L (0-15) 01/23/22 18:03 Troponin T 120 Minute 9.35 ng/L (0-15) 01/23/22 20:10 Delta Troponin T -0.65 ABS# (0-10) L 01/23/22 20:10 Total Protein 6.7 g/dL (6.6-8.7) 01/23/22 18:03 Albumin 3.5 g/dL (3.5-5.2) 01/23/22 18:03 Globulin 3.2 g/dL (1.3-4.6) 01/23/22 18:03 Discharge Plan Discharge Patient Disposition: Home Clinical Impression: Atypical chest pain, Chest pain Condition: Stable Prescriptions: No Action diclofenac sodium 1 % gel 2 g TOPICAL QID Qty: 100 2RF Rx Instructions: apply to affected area as needed Spiriva with HandiHaler 18 mcg capsule, w/inhalation device 1 cap INHALATION DAILY Qty: 30 3RF Rx Instructions: puncture 1 cap using device; one dose = 2 inhalations albuterol sulfate [Ventolin HFA] 90 mcg/actuation HFA aerosol inhaler 2 puff INHALATION QID PRN (Reason: shortness of breath or wheezing) Qty: 18 2RF nitroglycerin [Nitrostat] 0.4 mg tablet, sublingual 0.4 mg SUBLINGUAL Q5M PRN (Reason: Chest Pain) 0RF ketoconazole 2 % cream 1 applic TOPICAL BID 0RF hydroxyzine HCl 25 mg tablet 25 mg PO BID PRN (Reason: anxiety) Qty: 60 2RF fluoxetine 40 mg capsule 40 mg PO DAILY Qty: 30 2RF trazodone 50 mg tablet 100 mg PO .HS PRN (Reason: insomnia) Qty: 60 2RF Rx Instructions: Take 1 or 2 at night as needed paliperidone 9 mg tablet extended release 24hr 9 mg PO DAILY Qty: 30 2RF rosuvastatin [Crestor] 40 mg tablet 40 mg PO DAILY Qty: 90 1RF ferrous sulfate [Feosol] 325 mg (65 mg iron) tablet 325 mg PO BID Qty: 60 1RF Centrum Silver Ultra Men's 300-600-300 mcg tablet 1 tab PO DAILY 90 Days Qty: 90 3RF cefdinir 300 mg capsule 300 mg PO BID 10 Days Qty: 20 0RF Discharge Orders: Discharge ED (Routine); Ordered 01/23/22 Ordered By: Ramsey Vizcarra Referrals: Julia Benz FNP [Primary Care Provider] - Discharge Diet: Advance as tolerated Discharge Activity: Resume usual activity Patient Instructions: Opioid Safety Activity Restrictions/Additional Instructions: Follow-up with primary care if symptoms persist. If new or different symptoms develop return to the emergency department. Stop smoking. Coding Level of Care Code ED Mental Health Nurse for Devorah Milligan
[2022-01-23 19:11] VITALS: BP 118/70; PULSE 71; RESP 19; O2SAT 98
[2022-01-23 19:46] LABS: Troponin(5th) Baseline 10 ng/L (0-15)
[2022-01-23 19:51] LABS: Alanine Aminotransferase < 5 U/L (0-41); Albumin Level 3.5 g/dL (3.5-5.2); Alkaline Phosphatase 91 IU/L (40-130); Anion Gap 16.5 (5-19); Aspartate Amino Transferase 13 U/L (0-40); Blood Urea Nitrogen 12 mg/dL (8-23); Calcium 9.4 mg/dL (8.5-10.5); Carbon Dioxide 25 mmol/L (22-29); Chloride 100 mmol/L (98-107); Globulin 3.2 g/dL (1.3-4.6); Glomerular Filtration Rate 73.9 mL/min (90-130); Glucose 108 mg/dL (65-115); Osmolality Calculated 286 mOsm/kg (285-295); Potassium 3.5 mmol/L (3.5-5.1); Sodium 138 mmol/L (136-145); Total Bilirubin 0.7 mg/dL (0.15-1.2); Total Protein 6.7 g/dL (6.6-8.7)
--- NOTE | 2022-01-23 19:53 | ECG_ITS ---
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 Measurements Intervals [place] Rate: 71 P: 40 LA: 165 QRS: 27 QRSD: 89 T: 43 QT: 387 QTc: 422 Interpretive Statements SINUS RHYTHM Compared to ECG 01/23/2022 17:52:38 T-wave abnormality no longer present Electronically Signed On 01-23-2022 22:58:47 CDT by Enzo Monge M.D. [email or web address] [email or web address].bVisual/[email or web address]/OM/[id number]
[2022-01-23 20:38] LABS: Troponin 5 2HR 9.35 ng/L (0-15)
[2022-01-23 20:58] LABS: Troponin 5 2HR Delta -0.65 ABS# (0-10)
--- NOTE | 2022-01-23 21:01 | PC.PHAR ---
PT STATES DR GIBSON DISCONTINUED ASPIRIN 81 MG AND ELIQUIS ON 01/05/22
[2022-01-23 21:59] VITALS: BP 108/76; PULSE 76; RESP 15; O2SAT 96
== END 2022-01-23 21:57 | disposition home or self-care (01) ==
PROVIDERS: Emergency Medicine; Emergency Provider Family Medicine; PCP Nurse Practitioner Family
DX: R07.89 Other chest pain (principal); I25.10 Atherosclerotic heart disease of native coronary artery without angina pectoris; J44.9 Chronic obstructive pulmonary disease, unspecified; K21.9 Gastro-esophageal reflux disease without esophagitis; I10 Essential (primary) hypertension; E78.5 Hyperlipidemia, unspecified
CPT/HCPCS: 71045; 80053; 84484; 85025; 93005; 99285

== ENCOUNTER 2022-02-28 05:50 | Day surgery (SDC) | payer MEDICARE, SELFPAY ==
[2022-02-26 13:45] VITALS: BMI 25.7
[2022-02-28 06:10] VITALS: BP 107/65; PULSE 73; RESP 18; TEMP 35.8; O2SAT 98
[2022-02-28] MEDS: sodium chloride 0.9% 1,000 ML 30 ML IV (06:19)
--- NOTE | 2022-02-28 06:35 | ANES.PREANE2 ---
Pre-Anesthetic Assessment Height/Weight: Height 1.8 m Weight 83.915 kg Temp Pulse Resp BP Pulse Ox 96.4 F L 73 18 107/65 98 02/28/22 06:10 02/28/22 06:10 02/28/22 06:10 02/28/22 06:10 02/28/22 06:10 Preop Diagnosis: upper gi symptoms Operation Date: 02/28/22 07:00 Proposed Procedures p EGD 80384/d5.9(Not Applicable) - Cb Chairez MD Familial anesthetic complications: None Was Beta Adis taken within 24 hours: N/A Was Clonidine taken within 24 hours: N/A Last intake: Intake Last Liquid Date 02/27/22 Last Liquid Time 22:00 Last Solid Date 02/27/22 Last Solid Time 22:00 Social Alcohol and Tobacco Exam alert, oriented x 3, clear to auscultation bilaterally and regular rate & rhythm Airway Mallampati: Class II Dentition: partials and other (multiple missing, poor dentition) Pulmonary Chronic Obstructive Pulmonary Disease and Sleep Apnea CV/HEM Coronary Artery Disease and Hypertension stable CAD, denies recent chest pain, hx of PE an DVT Metabolic Hyperlipidemia Anesthetic Plan ASA status: 4 Anesthesia: MAC Risk of > 500 ml blood loss (7ml/kg in children): No Medications/Allergies Home Medications Medication Instructions Recorded Confirmed Last Taken Type nitroglycerin 0.4 mg sublingual 0.4 mg SUBLINGUAL Q5M PRN 11/19/19 02/26/22 Unknown History tablet (Nitrostat) diclofenac sodium 1 % topical gel 2 g TOPICAL QID #100 g 10/03/20 02/26/22 02/25/22 Rx albuterol sulfate 90 mcg/actuation 2 puff INHALATION QID PRN #18 gm 10/04/20 02/26/22 02/25/22 Rx aerosol inhaler (Ventolin HFA) tiotropium bromide 18 mcg capsule 1 cap INHALATION DAILY #30 inh 10/04/20 02/26/22 02/25/22 Rx with inhalation device (Spiriva with HandiHaler) hydroxyzine HCl 25 mg tablet 25 mg PO BID PRN #60 tab 09/29/21 02/26/22 02/27/22 Rx fluoxetine 40 mg capsule 40 mg PO DAILY #30 cap 12/22/21 02/26/22 02/27/22 Rx paliperidone 9 mg tablet,extended 9 mg PO DAILY #30 tab 12/22/21 02/26/22 02/27/22 Rx release 24 hr trazodone 50 mg tablet 100 mg PO .HS PRN #60 tab 12/22/21 02/26/22 02/27/22 Rx ferrous sulfate 325 mg (65 mg 325 mg PO BID #60 tab 01/04/22 02/26/22 02/27/22 Rx iron) tablet (Feosol) rosuvastatin 40 mg tablet (Crestor) 40 mg PO DAILY #90 tab 01/04/22 02/26/22 02/27/22 Rx vehirpce-dnf-vicpe acid 300 1 tab PO DAILY 90 Days #90 tab 01/23/22 02/26/22 02/27/22 Rx mcg-lycopene 600 mcg-lutein 300 mcg tablet (Centrum Silver Ultra Men's) Allergies Allergy/AdvReac Type Severity Reaction Status Date / Time haloperidol AdvReac Intermediate Made Verified 01/23/22 21:00 nervous. Couldn't sit still. Current Medications Generic Name Dose Route Start Last Admin Trade Name Freq PRN Reason Stop Dose Admin Sodium Chloride 1,000 mls @ 30 mls/hr 02/28/22 06:00 02/28/22 06:19 Sodium Chloride 0.9% IV 03/01/22 05:59 30 mls/hr .Q24H KAYA Administration PFSH Anesthesia Medical History Alcohol abuse Anticoagulant long-term use CAD (coronary artery disease) Constipation COPD (chronic obstructive pulmonary disease) Delusional disorder Depression with anxiety Family history of factor V Leiden mutation Frequent urinary tract infections Frequent urinary tract infections GERD (gastroesophageal reflux disease) High risk medication use History of GI bleed Hx of deep venous thrombosis Hx pulmonary embolism Hyperlipidemia Hypertension Inflammatory arthritis Ocular rosacea KIANA (obstructive sleep apnea) Psychiatric care Restless leg syndrome Undifferentiated connective tissue disease Surgical History History of colonoscopy 2019 History of esophagogastroduodenoscopy (EGD) (~2008) Hx of arthroscopy of shoulder Family History Father CAD (coronary artery disease) Other Hyperlipidemia Hypertension Rheumatoid arthritis Stroke Denies family history of Diabetes Lupus Chronic kidney disease (CKD) Anesthesia complication Bleeding disorder Cancer Social History Smoking and tobacco status: never smoked Quit status (tobacco): has tried quititng Number of times tried to quit tobacco: 1 Second hand smoke exposure: Yes Alcohol intake: former Year of sobriety/quit date alcohol: 2016 Lives independently: Yes Household members: spouse Marital status: service: No Current occupational status: retired History of recent travel: No Current gender identity: Male Data Anesthesia Cardiac Studies: No Data to Display
--- NOTE | 2022-02-28 07:00 | P.HP_ITS ---
Same Day Surgery H&P Indication for Procedure/HPI DATE OF PROCEDURE: February 28, 2022 CHIEF COMPLAINT/INDICATIONFOR SURGICAL PROCEDURE: egd PREOP DIAGNOSIS: upper gi symptoms PLANNED PROCEDURE: Operation Date: 02/28/22 07:00 Proposed Procedures p EGD 48783/d5.9(Not Applicable) - Cb Chairez MD Medications/Allergies* Home Medications Medication Instructions Recorded Confirmed Type nitroglycerin 0.4 mg sublingual 0.4 mg SUBLINGUAL Q5M PRN 11/19/19 02/26/22 History tablet (Nitrostat) Allergies/Adverse Reactions Allergy/AdvReac Type Severity Reaction Status Date / Time haloperidol AdvReac Intermediate Made Verified 01/23/22 21:00 nervous. Couldn't sit still. Current Medications: Generic Name Dose Route Start Last Admin Trade Name Freq PRN Reason Stop Dose Admin Sodium Chloride 1,000 mls @ 30 mls/hr 02/28/22 06:00 02/28/22 06:19 Sodium Chloride 0.9% IV 03/01/22 05:59 30 mls/hr .Q24H KAYA Administration Pertinent History/Comorbid Conditions* Medical History (Updated 01/31/22 @ 00:01 by ) Alcohol abuse Anticoagulant long-term use CAD (coronary artery disease) Constipation COPD (chronic obstructive pulmonary disease) Delusional disorder Depression with anxiety Family history of factor V Leiden mutation Frequent urinary tract infections Frequent urinary tract infections GERD (gastroesophageal reflux disease) High risk medication use History of GI bleed Hx of deep venous thrombosis Hx pulmonary embolism Hyperlipidemia Hypertension Inflammatory arthritis Ocular rosacea KIANA (obstructive sleep apnea) Psychiatric care Restless leg syndrome Undifferentiated connective tissue disease Surgical History (Updated 01/12/22 @ 14:53 by Cb Chairez MD) History of colonoscopy 2019 History of esophagogastroduodenoscopy (EGD) (~2008) Hx of arthroscopy of shoulder Family History (Updated 06/14/20 @ 13:52 by Aspen Gonzalez LPN) Rheumatoid arthritis CAD (coronary artery disease) Father Hyperlipidemia Hypertension Stroke Denies family history of Diabetes Lupus Chronic kidney disease (CKD) Anesthesia complication Bleeding disorder Cancer Social History Smoking and tobacco status: never smoked Quit status (tobacco): has tried quititng Number of times tried to quit tobacco: 1 Second hand smoke exposure: Yes Alcohol intake: former Year of sobriety/quit date alcohol: 2017 Lives independently: Yes Household members: spouse Marital status: service: No Current occupational status: retired History of recent travel: No Current gender identity: Male Pertinent Exam Findings alert, oriented x 3 and regular rate & rhythm Recommendations Surgery/Procedure today Coding Level of Care Code Acute Unix Systems Administrator for Devorah Milligan
[2022-02-28 07:28] VITALS: BP 96/70; PULSE 83; RESP 16; TEMP 36.5; O2SAT 94
[2022-02-28 07:36] VITALS: BP 115/69; PULSE 79; RESP 18; O2SAT 97
--- NOTE | 2022-02-28 14:23 | ANE.PACU2 ---
Inpatient post-anesthesia follow up: Airway intact: Yes Vital signs: Temperature 97.7 F Pulse Rate 79 Respiratory Rate 18 Blood Pressure 115/69 Pulse Oximetry 97 Oxygen Delivery Me thod Room Air Oxygen Flow Rate 4 Fraction of Inspir ed Oxygen Hydration adequate: Yes Nausea and vomiting: No Pain level: 1 Mental status: Baseline
== END 2022-02-28 07:54 | disposition home or self-care (01) ==
PROVIDERS: PCP Nurse Practitioner Family; Visit Provider Surgery
PROC: 0DJ08ZZ Inspection of Upper Intestinal Tract, Via Natural or Artificial Opening Endoscopic (ICD-10-PCS; CPT 43235; principal; 2022-02-28 07:00)
DX: D50.9 Iron deficiency anemia, unspecified (principal); Z79.01 Long term (current) use of anticoagulants; I25.10 Atherosclerotic heart disease of native coronary artery without angina pectoris; J44.9 Chronic obstructive pulmonary disease, unspecified; Z86.718 Personal history of other venous thrombosis and embolism; Z86.711 Personal history of pulmonary embolism; E78.5 Hyperlipidemia, unspecified; I10 Essential (primary) hypertension; G47.33 Obstructive sleep apnea (adult) (pediatric); K20.90 Esophagitis, unspecified without bleeding
CPT/HCPCS: 43239; 88305; 88342; J2704; J7030

== ENCOUNTER → 2022-03-21 09:50 | Outpatient (BNVA) | payer MEDICARE, SELFPAY | PROVIDERS: PCP Nurse Practitioner Family; Visit Provider Surgery | DX: Z09 Encounter for follow-up examination after completed treatment for conditions other than malignant neoplasm (principal) | CPT/HCPCS: 99212 ==

== ENCOUNTER → 2022-08-20 11:57 | Outpatient (BNVA) | payer MEDICARE, SELFPAY | PROVIDERS: PCP Nurse Practitioner Family; Visit Provider Nurse Practitioner Family | DX: I10 Essential (primary) hypertension (principal); Z12.5 Encounter for screening for malignant neoplasm of prostate; Z79.899 Other long term (current) drug therapy; Z23 Encounter for immunization; E78.5 Hyperlipidemia, unspecified | CPT/HCPCS: 80053; 80061; 82306; 82607; 83735; 84443; 85025; G0103 ==

== ENCOUNTER 2023-04-08 07:46 | Emergency (ER) | payer MEDICARE, MEDICAID, SELFPAY ==
[2023-04-08 07:52] VITALS: BP 137/83; PULSE 78; RESP 18; TEMP 36.6; O2SAT 95; BMI 23.0
--- NOTE | 2023-04-08 07:56 | ECG_ITS ---
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 Measurements Intervals [place] Rate: 71 P: 15 DE: 186 QRS: 27 QRSD: 75 T: 37 QT: 358 QTc: 392 Interpretive Statements SINUS RHYTHM SEPTAL MYOCARDIAL INFARCTION , PROBABLY OLD [40+ ms Q WAVE IN V1/V2] Compared to ECG 01/23/2022 20:03:28 Myocardial infarct finding now present Electronically Signed On 04-08-2023 21:10:59 CDT by Lois Wynne M.D. [id number] f
--- NOTE | 2023-04-08 08:07 | XRR_ITS ---
PROCEDURE INFORMATION: Exam: XR Chest Exam date and time: 04/08/2023 8:22 AM Age: 73 years old Clinical indication: Shortness of breath; Additional info: Dyspnea/cough TECHNIQUE: Imaging protocol: Radiologic exam of the chest. Views: 1 view. COMPARISON: CR XR chest 1V portable [id number] 01/23/2022 6:58 PM FINDINGS: Lungs: Possible small focus of rounded atelectasis in the subpleural lateral left lung base. No pulmonary vascular congestion, pulmonary edema or pneumonia. Pleural spaces: Calcified pleural plaque formation redemonstrated. New small left pleural effusion and/or pleural thickening. Heart/Mediastinum: The cardiac silhouette is not enlarged. Small hiatal hernia. The superior mediastinal contours are within normal limits. Bones/joints: Thoracic spondylosis. XR/XR chest 1V portable [id number] IMPRESSION: 1. New small left pleural effusion and/or pleural thickening. 2. Possible small focus of left basilar rounded atelectasis.
--- NOTE | 2023-04-08 08:16 | ED_ITS ---
HPI - SOB/Dyspnea General: Chief Complaint: Shortness of Breath/Dyspnea Stated Complaint: SOB, Burning and iching all over upper body Time Seen by Provider: 04/08/23 08:02 Source: patient Mode of arrival: ambulatory History of Present Illness: HPI Narrative: 73-year-old male presents emergency room with complaints of shortness of breath began last night. He denies any fever sweats or chills generally feels weak he has not had a productive cough he does smoke regularly he has no known history of any chronic respiratory illnesses. He has not previously had a DVT he has no known history of cancer coronary artery disease. His past medical history does list COPD, and he is on Spiriva. He has prescription for albuterol but has not been using it regularly. MD elicited complaint: shortness of breath Pertinent past history: COPD Onset (ago): day(s) Timing: constant Severity: mild Exacerbating factors: exertion and coughing Relieving factors: nothing Known history of: COPD Associated symptoms: Deny abdominal pain, chest congestion, chest pain, cough, diaphoresis, dizziness, extremity pain, fever(s), hemoptysis, lightheadedness, myalgias, nausea, orthopnea, palpitations, paresthesias, polydipsia, polyuria, rash, sense of impending doom, syncope or vomiting Treatment prior to arrival: none Review of Systems Const: Reports: fatigue; Denies: fever(s), chills or diaphoresis ENMT: Denies: throat pain, ear or mastoid pain, nasal discharge or nasal congestion Card: Denies: chest pain, palpitations, lightheadedness, syncope or orthopnea Resp: Reports: dyspnea, non-productive cough and wheezing; Denies: hemoptysis or chest congestion GI: Denies: abdominal pain, nausea or vomiting : Denies: flank pain, dysuria, urinary frequency or urinary urgency Musc: Denies: extremity pain Skin/Breast: Reports: rash and pruritus Neuro: Denies: dizziness Endo: Denies: polyuria or polydipsia PFS ED PFSH: Medical History Alcohol abuse Anticoagulant long-term use CAD (coronary artery disease) Constipation COPD (chronic obstructive pulmonary disease) Delusional disorder Depression with anxiety Family history of factor V Leiden mutation Frequent urinary tract infections Frequent urinary tract infections GERD (gastroesophageal reflux disease) High risk medication use History of GI bleed Hx of deep venous thrombosis Hx pulmonary embolism Hyperlipidemia Hypertension Inflammatory arthritis Ocular rosacea KIANA (obstructive sleep apnea) Restless leg syndrome Undifferentiated connective tissue disease Surgical History History of colonoscopy 2020 History of esophagogastroduodenoscopy (EGD) (02/28/22) Hx of arthroscopy of shoulder Family History Father CAD (coronary artery disease) Other Hyperlipidemia Hypertension Rheumatoid arthritis Stroke Denies family history of Diabetes Lupus Chronic kidney disease (CKD) Anesthesia complication Bleeding disorder Cancer Social History Smoking and tobacco status: current every day smoker cigarettes Packs smoked per day: 0.50 Years cigarettes smoked: 50 Quit status (tobacco): has tried quititng Number of times tried to quit tobacco : 10 Second hand smoke exposure: Yes Smoking risk assessment/counseling performed?: No Alcohol intake: former Year of sobriety/quit date alcohol: 2016 Desire information about alcohol rehabilitation?: No Counseling given: No Lives independently: Yes Household members: spouse Marital status: service: No Current occupational status: retired Current gender identity: Male Physical Exam Const: GENERAL APPEARANCE: cooperative and comfortable ORIENTATION/CONSCIOUSNESS: Yes awake, Yes oriented to person, Yes oriented to place and Yes oriented to time HENMT: COMMON NORMALS: normocephalic, atraumatic and hearing grossly normal bilaterally HEAD & SCALP: normocephalic and atraumatic Resp: COMMON NORMALS: normal respiratory effort, No retractions and No use of accessory muscles AUSCULTATION: wheezes Cardio: COMMON NORMALS: regular rate, regular rhythm and No murmurs present (Cardio) RATE: regular rate RHYTHM: regular rhythm GI: COMMON NORMALS: Soft to palpation and No hepatosplenomegaly present AUSCULTATION: Yes normoactive bowel sounds PALPATION: Yes Soft to palpation, No Tenderness to palpation present (GI), No Guarding due to palpation present (GI) and Yes No hepatosplenomegaly present : COMMON NORMALS: Yes no CVA tenderness BLADDER/KIDNEY EXAM: Yes no CVA tenderness Back/Pelvis: COMMON NORMALS: no CVA tenderness Extremity: COMMON NORMALS: normal to inspection, capillary refill normal, no clubbing, cyanosis or edema, no calf tenderness and no pedal edema Neuro: SENSORIUM/ORIENTATION: Yes oriented to person, Yes oriented to place and Yes oriented to time Skin: OTHER: Patient is mildly acute excoriated areas of the right antecubital fossa and the back of the neck Novis vesicles it is slightly raised no dermatomal pattern. No plaques. Some mild seborrheic dermatitis is noted. No sign of acute infection. Course Vital Signs: Vital signs: Vital Signs Temperature 97.8 F 04/08/23 07:52 Pulse Rate 67 04/08/23 12:01 Respiratory Rate 18 04/08/23 12:01 Blood Pressure 134/74 04/08/23 12:01 Pulse Oximetry 94 04/08/23 12:01 Oxygen Delivery Me thod Room Air 04/08/23 11:59 MDM - SOB/Dyspnea Medical Decision Making Improved with meds given. Will discharge home on steroid taper Symbicort and albuterol. Triamcinolone for the areas of rash. Follow-up with primary care within the next week. Labs and imaging reviewed with the patient. Medical Records I reviewed the patient's medical records. Lab Data I reviewed the patient's lab results. 04/08/23 08:15 04/08/23 08:15 Labs/Radiology: Radiology Impressions Chest X-Ray 04/08/23 08:07 IMPRESSION: 1. New small left pleural effusion and/or pleural thickening. 2. Possible small focus of left basilar rounded atelectasis. Laboratory Results WBC 6.9 10^3/uL (4.0-10.0) 04/08/23 08:15 RBC 4.18 10^6/uL (4.1-5.3) 04/08/23 08:15 Hgb 12.2 g/dL (11.7-16.6) 04/08/23 08:15 Hct 39.0 % (42.0-52.0) L 04/08/23 08:15 MCV 93.3 fl (80-94) 04/08/23 08:15 MCH 29.2 pg (28.0-34.0) 04/08/23 08:15 MCHC 31.3 g/dL (30.0-36.0) 04/08/23 08:15 RDW 14.4 % (12.1-15.1) 04/08/23 08:15 Plt Count 221 10^3/cmm (130-400) 04/08/23 08:15 MPV 9.5 fL (7.4-10.4) 04/08/23 08:15 Neut % (Auto) 55.7 % 04/08/23 08:15 Lymph % (Auto) 31.7 % 04/08/23 08:15 Rawlins % (Auto) 11.6 % 04/08/23 08:15 Eos % (Auto) 0.6 % 04/08/23 08:15 Baso % (Auto) 0.1 % 04/08/23 08:15 Neut # (Auto) 3.83 10^3/uL (1.8-7.7) 04/08/23 08:15 Lymph # (Auto) 2.2 10^3/uL (0.8-4.8) 04/08/23 08:15 Rawlins # (Auto) 0.8 10^3/uL (0.2-0.9) 04/08/23 08:15 Eos # (Auto) 0.0 10^3/uL (0.0-0.8) 04/08/23 08:15 Baso # (Auto) 0.0 10^3/uL (0.0-0.1) 04/08/23 08:15 Nucleated RBC % (auto) 0 % 04/08/23 08:15 Nucleated RBCs # 0.0 /100WBC 04/08/23 08:15 Sodium 138 mmol/L (136-145) 04/08/23 08:15 Potassium 4.7 mmol/L (3.5-5.1) 04/08/23 08:15 Chloride 103 mmol/L (98-107) 04/08/23 08:15 Carbon Dioxide 27 mmol/L (22-29) 04/08/23 08:15 Anion Gap 12.7 (5-19) 04/08/23 08:15 BUN 17 mg/dL (8-23) 04/08/23 08:15 Creatinine 1.1 mg/dL (0.7-1.2) 04/08/23 08:15 GFR Calculation Not Reportable 04/08/23 08:15 Glucose 83 mg/dL (65-115) 04/08/23 08:15 Calculated Osmolality 287 mOsm/kg (285-295) 04/08/23 08:15 Calcium 9.1 mg/dL (8.5-10.5) 04/08/23 08:15 Total Bilirubin 0.7 mg/dL (0.15-1.2) 04/08/23 08:15 AST 14 U/L (0-40) 04/08/23 08:15 ALT 9 U/L (0-41) 04/08/23 08:15 Alkaline Phosphatase 115 U/L (40-130) 04/08/23 08:15 Troponin T Baseline 12 ng/L (0-15) 04/08/23 08:15 Troponin T 120 Minute 10.42 ng/L (0-15) 04/08/23 10:30 Delta Troponin T -1.58 ABS# (0-10) L 04/08/23 10:30 Total Protein 6.7 g/dL (6.6-8.7) 04/08/23 08:15 Albumin 3.7 g/dL (3.5-5.2) 04/08/23 08:15 Globulin 3.0 g/dL (1.3-4.6) 04/08/23 08:15 Discharge Plan Discharge Patient Disposition: Home Clinical Impression: COPD (chronic obstructive pulmonary disease), Dermatitis Condition: Stable Prescriptions: New Medrol (Chao) 4 mg tablets,dose pack See Rx Instructions .ROUTE .COMPLEX Qty: 21 0RF Rx Instructions: orally per package directions albuterol sulfate 90 mcg/actuation HFA aerosol inhaler 2 inh INHALATION Q4H PRN (Reason: shortness of breath or wheezing) Qty: 18 0RF Symbicort 80-4.5 mcg/actuation HFA aerosol inhaler 2 inh inhalation BID Qty: 10.2 0RF triamcinolone acetonide 0.1 % cream 1 applic topical BID Qty: 80 0RF No Action nitroglycerin [Nitrostat] 0.4 mg tablet, sublingual 0.4 mg SUBLINGUAL Q5M PRN (Reason: Chest Pain) cyanocobalamin (vitamin B-12) 1,000 mcg/mL solution 1,000 mcg SUBCUT Q30D Discharge Orders: Discharge ED (Routine); Ordered 07/24/23 Ordered By: Raza Gonzalez Referrals: Julia Benz FNP [Primary Care Provider] - Discharge Diet: Usual diet Discharge Activity: Increase activity as tolerated Patient Instructions: Opioid Safety, Pain Management Activity Restrictions/Additional Instructions: You are seen today for shortness of breath. Your EKG and cardiac enzymes are normal your chest x-ray shows fibrotic changes in the right lung but they are unchanged from previous chest x-rays. Recommend he start Symbicort 2 puffs twice daily use albuterol as needed begin oral steroid taper tomorrow. Use topical triamcinolone to the rash twice daily follow-up with your primary care doctor within the week Coding Level of Care Code ED District Recruiter for Devorah Milligan
[2023-04-08 08:24] LABS: Basophils % 0.1 %; Eosinophils % 0.6 %; Hemoglobin 12.2 g/dL (11.7-16.6); Lymphocytes # 2.2 10^3/uL (0.8-4.8); Lymphocytes % 31.7 %; Mean Corpuscular HGB Conc 31.3 g/dL (30.0-36.0); Mean Corpuscular Hemoglobin 29.2 pg (28.0-34.0); Mean Corpuscular Volume 93.3 fl (80-94); Mean Platelet Volume 9.5 fL (7.4-10.4); Monocytes # 0.8 10^3/uL (0.2-0.9); Monocytes % 11.6 %; Neutrophils # 3.83 10^3/uL (1.8-7.7); Neutrophils % 55.7 %; Nucleated Red Blood Cells % 0 %; Platelet Count 221 10^3/cmm (130-400); Red Blood Count 4.18 10^6/uL (4.1-5.3); Red Cell Distribution Width 14.4 % (12.1-15.1); White Blood Count 6.9 10^3/uL (4.0-10.0)
[2023-04-08] MEDS: methylPREDNISolone sod succ 125 mg SDV IVP (08:24)
[2023-04-08 08:41] LABS: Alanine Aminotransferase 9 U/L (0-41); Albumin Level 3.7 g/dL (3.5-5.2); Alkaline Phosphatase 115 U/L (40-130); Anion Gap 12.7 (5-19); Aspartate Amino Transferase 14 U/L (0-40); Blood Urea Nitrogen 17 mg/dL (8-23); Calcium 9.1 mg/dL (8.5-10.5); Carbon Dioxide 27 mmol/L (22-29); Chloride 103 mmol/L (98-107); Glucose 83 mg/dL (65-115); Osmolality Calculated 287 mOsm/kg (285-295); Potassium 4.7 mmol/L (3.5-5.1); Sodium 138 mmol/L (136-145); Total Bilirubin 0.7 mg/dL (0.15-1.2); Total Protein 6.7 g/dL (6.6-8.7)
[2023-04-08 09:20] VITALS: PULSE 72; RESP 18; O2SAT 95
[2023-04-08] MEDS: ipratropium-albuterol 3 mL Neb INHALATION (09:20)
[2023-04-08 09:26] VITALS: PULSE 71
[2023-04-08 10:05] LABS: Troponin(5th) Baseline 12 ng/L (0-15)
[2023-04-08 11:03] LABS: Troponin 5 2HR 10.42 ng/L (0-15)
[2023-04-08 11:17] LABS: Troponin 5 2HR Delta -1.58 ABS# (0-10)
[2023-04-08 11:59] VITALS: PULSE 67; RESP 18; O2SAT 94
[2023-04-08 12:01] VITALS: BP 134/74; PULSE 67; RESP 18; O2SAT 94
== END 2023-04-08 11:52 | disposition home or self-care (01) ==
PROVIDERS: Emergency Provider Family Medicine; PCP Nurse Practitioner Family
DX: J44.9 Chronic obstructive pulmonary disease, unspecified (principal); L30.9 Dermatitis, unspecified; F17.210 Nicotine dependence, cigarettes, uncomplicated; I25.10 Atherosclerotic heart disease of native coronary artery without angina pectoris; E78.5 Hyperlipidemia, unspecified; I10 Essential (primary) hypertension
CPT/HCPCS: 71045; 80053; 84484; 85025; 93005; 94640; 96374; 99285; J2930

== ENCOUNTER 2023-04-21 13:21 | Inpatient (IN) | payer MEDICARE, MEDICAID, SELFPAY ==
[2023-04-21] VITALS (10 sets, daily range): BP systolic 108–136; BP diastolic 66–75; PULSE 75–96; RESP 16–20; TEMP 36.5–37; O2SAT 95–99
--- NOTE | 2023-04-21 13:22 | CTR_ITS ---
PROCEDURE INFORMATION: Exam: CT Head Without Contrast Exam date and time: 04/21/2023 1:22 PM Age: 73 years old Clinical indication: Stroke-like symptoms; Altered mental status/memory loss; Additional info: Left sided weakness TECHNIQUE: Imaging protocol: Computed tomography of the head without contrast. Radiation optimization: All CT scans at this facility use at least one of these dose optimization techniques: automated exposure control; mA and/or kV adjustment per patient size (includes targeted exams where dose is matched to clinical indication); or iterative reconstruction. Other technique: STROKE PROTOCOL was implemented. REPORTING DATA: Count of CT and Cardiac NM exams in prior 12 months: This patient has received 0 known CTs and 0 known cardiac nuclear medicine studies in the 12 months prior to the current study. COMPARISON: CT head wo con* [id number] 01/20/2022 12:48 AM RADIATION DOSE METRICS: Total DLP (mGy-cm): 1106.69 FINDINGS: Brain: There is a new suspected area of infarction involving the right parietal lobe image 02/12 through . Atrophy and small vessel ischemic disease. No intracranial hemorrhage. Cerebral ventricles: No ventriculomegaly. Paranasal sinuses: Visualized sinuses are unremarkable. No fluid levels. Mastoid air cells: Visualized mastoid air cells are well aerated. Bones/joints: Unremarkable. No acute fracture. Soft tissues: Unremarkable. 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 ASSESSMENT: ASPECTS (Berta Stroke Program Early CT Score) is 8.
--- NOTE | 2023-04-21 13:27 | XRR_ITS ---
PROCEDURE INFORMATION: Exam: XR Chest Exam date and time: 04/21/2023 1:41 PM Age: 73 years old Clinical indication: Injury or trauma; Fall; Blunt trauma (contusions or hematomas) TECHNIQUE: Imaging protocol: Radiologic exam of the chest. Views: 1 view. COMPARISON: CR XR chest 1V portable [id number] 04/08/2023 8:22 AM FINDINGS: Lungs: No focal infiltrates. Pleural spaces: Extensive pleural plaquing is seen along the right chest. Decreased blunting of the left costophrenic angle signifying and proving effusion although there may be residual pleural reaction. Heart/Mediastinum: Unremarkable. No cardiomegaly. Bones/joints: Unremarkable. XR/XR chest 1V portable [id number] IMPRESSION: Stable pleural calcifications on the right with decreased left costophrenic angle blunting.
--- NOTE | 2023-04-21 13:27 | ECG_ITS ---
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 Measurements Intervals Andreas Rate: 84 P: 65 NH: 162 QRS: 15 QRSD: 78 T: 3 QT: 343 QTc: 407 Interpretive Statements SINUS RHYTHM WITH OCCASIONAL VENTRICULAR PREMATURE COMPLEXES Compared to ECG 04/08/2023 07:56:47 Ventricular premature complex(es) now present Myocardial infarct finding no longer present Electronically Signed On 04-21-2023 19:53:32 CDT by Isabel Mark M.D. [email or web address]
--- NOTE | 2023-04-21 13:43 | CTR_ITS ---
PROCEDURE INFORMATION: Exam: CTA Head With Contrast, Arteriography Exam date and time: 04/21/2023 1:45 PM Age: 73 years old Clinical indication: Drowsiness or somnolence; Additional info: Altered mental status TECHNIQUE: Imaging protocol: Computed tomographic angiography of the head with contrast. Exam focused on the arteries. 3D rendering (Not supervised by radiologist): MIP and/or 3D reconstructed images were created by the technologist. Radiation optimization: All CT scans at this facility use at least one of these dose optimization techniques: automated exposure control; mA and/or kV adjustment per patient size (includes targeted exams where dose is matched to clinical indication); or iterative reconstruction. Contrast material: OMNI 350; Contrast volume: 100 ml; Contrast route: INTRAVENOUS (IV); REPORTING DATA: Count of CT and Cardiac NM exams in prior 12 months: This patient has received 0 known CTs and 0 known cardiac nuclear medicine studies in the 12 months prior to the current study. COMPARISON: CT head wo con* [id number] 04/21/2023 1:22 PM RADIATION DOSE METRICS: Total DLP (mGy-cm): 443.02 FINDINGS: ANTERIOR CIRCULATION: Right internal carotid artery: Intracranial segment is patent with no significant stenosis. No aneurysm. Right middle cerebral artery: No occlusion or significant stenosis. No aneurysm. Right anterior cerebral artery: No occlusion or significant stenosis. No aneurysm. Left internal carotid artery: Intracranial segment is patent with no significant stenosis. No aneurysm. Left middle cerebral artery: No occlusion or significant stenosis. No aneurysm. Left anterior cerebral artery: No occlusion or significant stenosis. No aneurysm. POSTERIOR CIRCULATION: Right vertebral artery: No occlusion or significant stenosis. No aneurysm. Left vertebral artery: No occlusion or significant stenosis. No aneurysm. Basilar artery: No occlusion or significant stenosis. No aneurysm. Right posterior cerebral artery: No occlusion or significant stenosis. No aneurysm. Left posterior cerebral artery: No occlusion or significant stenosis. No aneurysm. Brain: Please see the brain CT for better description of the suspected right parietal acute stroke. No intracranial hemorrhage. No abnormal enhancement. Cerebral ventricles: No ventriculomegaly. Bones/joints: Unremarkable. No acute fracture. Soft tissues: Unremarkable. PROCEDURE INFORMATION: Exam: CTA Neck With Contrast Exam date and time: 04/21/2023 1:45 PM Age: 73 years old Clinical indication: Drowsiness or somnolence; Additional info: Altered mental status TECHNIQUE: Imaging protocol: Computed tomographic angiography of the neck with contrast. 3D rendering (Not supervised by radiologist): MIP and/or 3D reconstructed images were created by the technologist. Radiation optimization: All CT scans at this facility use at least one of these dose optimization techniques: automated exposure control; mA and/or kV adjustment per patient size (includes targeted exams where dose is matched to clinical indication); or iterative reconstruction. Contrast material: OMNI 350; Contrast volume: 100 ml; Contrast route: INTRAVENOUS (IV); REPORTING DATA: Count of CT and Cardiac NM exams in prior 12 months: This patient has received 0 known CTs and 0 known cardiac nuclear medicine studies in the 12 months prior to the current study. COMPARISON: CT head wo con* [id number] 04/21/2023 1:22 PM RADIATION DOSE METRICS: Total DLP (mGy-cm): 443.02 FINDINGS: Right common carotid artery: No stenosis. No dissection or occlusion. Right internal carotid artery: No stenosis of the extracranial segment. No dissection or occlusion. Right external carotid artery: No occlusion or stenosis of the origin. Left common carotid artery: No stenosis. No dissection or occlusion. Left internal carotid artery: No stenosis of the extracranial segment. No dissection or occlusion. Left external carotid artery: No occlusion or stenosis of the origin. Right vertebral artery: No stenosis. No dissection or occlusion. Left vertebral artery: No stenosis. No dissection or occlusion. Soft tissues: Normal. No significant soft tissue swelling. Bones/joints: No acute fracture. CT/CT angio headneck* [id number] IMPRESSION: No large vessel stenosis or occlusion. IMPRESSION: No stenosis or occlusion. REFERENCES: NASCET CRITERIA. The degree of stenosis in the cervical segment of the internal carotid artery is based on NASCET criteria. Normal is no stenosis. Mild is less than 50% stenosis. Moderate is 50-69% stenosis. Severe is 70% to 99% stenosis. Total occlusion is no detectable patent lumen.
[2023-04-21 14:04] LABS: Glucose Point of Care 62 mg/dL (70-110)
--- NOTE | 2023-04-21 14:23 | PC.NURSE ---
PT IS OUTSIDE OF THE 24 HOUR WINDOW FOR A STROKE ALERT.
--- NOTE | 2023-04-21 14:30 | W.ED.NEUROSD ---
HPI - Neuro Symptoms/Deficit General: Chief Complaint: Neuro Symptoms/Deficit Stated Complaint: LEFT SIDED WEAKNESS Time Seen by Provider: 04/21/23 13:27 History of Present Illness: 73-year-old male presents emergency department via EMS personnel. EMS personnel state that patient lives at home and his called EMS because she was concerned because he seemed to be having increased weakness. EMS reported that the patient initially fell yesterday at about noon (approximately 26 hours ago) and then laid in the living room floor for approximately 3 hours. EMS states that the did help him up to the couch and that is where he was sitting upon their arrival. They felt that he had generalized weakness but his left upper and lower extremity was more weak. He is alert and oriented to person and does follow commands appropriately. It was reported by EMS that both the patient and the patient's have dementia. Overall the patient is a poor historian regarding the events of this presentation as well as his past medical history Review of Systems General: Reports: ROS unobtainable due to mental status (Dementia) [facility] ED PFSH: Medical History Alcohol abuse Anticoagulant long-term use CAD (coronary artery disease) Constipation COPD (chronic obstructive pulmonary disease) Delusional disorder Depression with anxiety Family history of factor V Leiden mutation Frequent urinary tract infections Frequent urinary tract infections GERD (gastroesophageal reflux disease) High risk medication use History of GI bleed Hx of deep venous thrombosis Hx pulmonary embolism Hyperlipidemia Hypertension Inflammatory arthritis Ocular rosacea KIANA (obstructive sleep apnea) Restless leg syndrome Undifferentiated connective tissue disease Surgical History History of colonoscopy 2020 History of esophagogastroduodenoscopy (EGD) (02/28/22) Hx of arthroscopy of shoulder Family History Father CAD (coronary artery disease) Other Hyperlipidemia Hypertension Rheumatoid arthritis Stroke Denies family history of Diabetes Lupus Chronic kidney disease (CKD) Anesthesia complication Bleeding disorder Cancer Social History Smoking and tobacco status: current every day smoker cigarettes Packs smoked per day: 0.50 Years cigarettes smoked: 50 Quit status (tobacco): has tried quititng Number of times tried to quit tobacco: 10 Second hand smoke exposure: Yes Smoking risk assessment/counseling performed?: No Alcohol intake: former Year of sobriety/quit date alcohol: 2017 Desire information about alcohol rehabilitation?: No Counseling given: No Lives independently: Yes Household members: spouse Marital status: service: No Current occupational status: retired Current gender identity: Male NIH stroke score NIHSS: Level Of Consciousness - 1a: 1 Level Of Consciousness Questions - 1b: One Correct Level Of Consciousness Commands - 1c: Both Correct Best Gaze - 2: Normal Visual Garcia - 3: No Visual Loss Facial Palsy - 4: Minor Paralysis Motor Arm Right - 5: No Drift Motor Arm Left - 5: Drift Motor Leg Right - 6: No Drift Motor Leg Left - 6: Drift Limb Ataxia - 7: Present In One Limb Sensory - 8: Normal Best Language - 9: No Aphasia Dysarthia - 10: Normal Extinction And Inattention - 11: 0 Score: Total Score: 6 Physical Exam Const: GENERAL APPEARANCE: cooperative, comfortable, frail appearing and other (Malodorous, unkept) ORIENTATION/CONSCIOUSNESS: Yes awake and Yes oriented to person HENMT: COMMON NORMALS: normocephalic and atraumatic HEAD & SCALP: normal to inspection, normocephalic and atraumatic; no Klein's sign Eye: COMMON NORMALS: Equal, round and reactive pupils present and EOMs intact bilaterally PUPIL: Yes Equal, round and reactive pupils present Neck/C-Spine: COMMON NORMALS: full ROM, no lymphadenopathy, supple, no meningeal signs and No carotid bruits Chest: COMMONS NORMALS: normal inspection of the chest and normal palpation of entire chest wall Resp: COMMON NORMALS: normal respiratory effort, No use of accessory muscles and clear to auscultation bilaterally AUSCULTATION: clear to auscultation bilaterally Cardio: COMMON NORMALS: regular rate, regular rhythm, S1 normal heart sound present, S2 normal heart sound present and Peripheral pulses 2+ throughout RATE: regular rate RHYTHM: regular rhythm HEART SOUNDS: S1 normal heart sound present and S2 normal heart sound present PERIPHERAL PULSES: Peripheral pulses 2+ throughout GI: COMMON NORMALS: Normal to inspection, nondistended, normoactive bowel sounds present, Soft to palpation and non-tender PALPATION: Yes Soft to palpation : COMMON NORMALS: Yes no CVA tenderness BLADDER/KIDNEY EXAM: Yes no CVA tenderness Back/Pelvis: COMMON NORMALS: no CVA tenderness and thoracic and lumbar spine normal to inspection Extremity: COMMON NORMALS: normal to inspection and capillary refill normal OTHER: Flaccid left upper extremity Neuro: SENSORIUM/ORIENTATION: Yes oriented to person MENINGEAL SIGNS: Yes no meningeal signs CRANIAL NERVES: Yes CN normal except as noted SPEECH: speech normal SENSORY EXAM: Yes extremities (Sensation intact all extremities.) MOTOR EXAM: Abnormal motor strength present and Other motor observations present (Unable to lift against gravity) Psych: COMMON NORMALS: mental status grossly normal and cooperative Skin: COMMON NORMALS: no rashes or lesions noted and no wounds GENERAL SKIN EXAM: no rashes or lesions noted Course Vital Signs: Vital signs: Vital Signs Temperature 97 F L 04/23/23 04:00 Pulse Rate 72 04/23/23 05:18 Respiratory Rate 16 04/23/23 04:00 Blood Pressure 130/73 04/23/23 04:00 Pulse Oximetry 95 04/23/23 04:00 Oxygen Delivery Me thod Room Air 04/23/23 02:00 MDM - Neuro Symptoms/Deficit Medical Decision Making Physical exam completed and documented, I will obtain a CT head without contrast as well as a CTA head and neck for evaluation of the patient's altered mental status and recent fall I suspect most likely that he has an intracranial hemorrhage or ischemic event. I will obtain CBC CMP as well as cardiac enzymes to evaluate his increased weakness and his recent fall. After reviewing the CT scan without contrast it does appear that he has a right parietal new infarction unfortunately he is out of the window for treatment given this finding I will contact the hospitalist physician for admission for additional evaluation and treatment. Differential Diagnosis Likely cerebrovascular accident and transient cerebral ischemia Medical Records I reviewed the patient's medical records. Lab Data I reviewed the patient's lab results. 04/21/23 14:05 04/23/23 04:[address] 04/21/23 13:22 IMPRESSION: New suspected right parietal middle cerebral artery distribution infarcts since the previous study. ASSESSMENT: ASPECTS ([place] Stroke Program Early CT Score) is 8. ADDENDUM: 04/21/23 1344 THIS REPORT CONTAINS FINDINGS THAT MAY BE CRITICAL TO PATIENT CARE. The findings were verbally communicated by me to HELGA EASTMAN at 1:43 PM EMPLOYMENT SERVICE SPECIALIST on 04/21/2023. The findings were acknowledged and understood. Chest X-Ray 04/21/23 13:27 IMPRESSION: Stable pleural calcifications on the right with decreased left costophrenic angle blunting. Head/Neck CTA 04/21/23 13:43 IMPRESSION: No large vessel stenosis or occlusion. IMPRESSION: No stenosis or occlusion. REFERENCES: NASCET CRITERIA. The degree of stenosis in the cervical segment of the internal carotid artery is based on NASCET criteria. Normal is no stenosis. Mild is less than 50% stenosis. Moderate is 50-69% stenosis. Severe is 70% to 99% stenosis. Total occlusion is no detectable patent lumen. Laboratory Results WBC 10.4 10^3/uL (4.0-10.0) H 04/21/23 14:05 RBC 3.99 10^6/uL (4.1-5.3) L 04/21/23 14:05 Hgb 11.4 g/dL (11.7-16.6) L 04/21/23 14:05 Hct 36.8 % (42.0-52.0) L 04/21/23 14:05 MCV 92.2 fl (80-94) 04/21/23 14:05 MCH 28.6 pg (28.0-34.0) 04/21/23 14:05 MCHC 31.0 g/dL (30.0-36.0) 04/21/23 14:05 RDW 14.1 % (12.1-15.1) 04/21/23 14:05 Plt Count 214 10^3/cmm (130-400) 04/21/23 14:05 MPV 10.2 fL (7.4-10.4) 04/21/23 14:05 Neut % (Auto) 77.5 % 04/21/23 14:05 Lymph % (Auto) 13.8 % 04/21/23 14:05 [place] % (Auto) 8.2 % 04/21/23 14:05 Eos % (Auto) 0.1 % 04/21/23 14:05 Baso % (Auto) 0.1 % 04/21/23 14:05 Neut # (Auto) 8.06 10^3/uL (1.8-7.7) H 04/21/23 14:05 Lymph # (Auto) 1.4 10^3/uL (0.8-4.8) 04/21/23 14:05 [place] # (Auto) 0.9 10^3/uL (0.2-0.9) 04/21/23 14:05 Eos # (Auto) 0.0 10^3/uL (0.0-0.8) 04/21/23 14:05 Baso # (Auto) 0.0 10^3/uL (0.0-0.1) 04/21/23 14:05 Nucleated RBC % (auto) 0 % 04/21/23 14:05 Nucleated RBCs # 0.0 /100WBC 04/21/23 14:05 PT 15.90 SECONDS (12.1-14.9) H 04/21/23 14:05 INR 1.23 (0.8-1.2) H 04/21/23 14:05 APTT 27.2 SECONDS (23.9-36.7) 04/21/23 14:05 Sodium 134 mmol/L (136-145) L 04/21/23 14:05 Potassium 4.6 mmol/L (3.5-5.1) 04/21/23 14:05 Chloride 101 mmol/L (98-107) 04/21/23 14:05 Carbon Dioxide 21 mmol/L (22-29) L 04/21/23 14:05 Anion Gap 16.6 (5-19) 04/21/23 14:05 BUN 18 mg/dL (8-23) 04/21/23 14:05 Creatinine 0.8 mg/dL (0.7-1.2) 04/21/23 14:05 GFR Calculation Not Reportable 04/21/23 14:05 Glucose 62 mg/dL (65-115) L 04/21/23 14:05 POC Glucose 56 mg/dL (70-110) L 04/21/23 15:35 Calculated Osmolality 278 mOsm/kg (285-295) L 04/21/23 14:05 Calcium 7.6 mg/dL (8.5-10.5) L 04/21/23 14:05 Total Bilirubin 1.7 mg/dL (0.15-1.2) H 04/21/23 14:05 AST 17 U/L (0-40) 04/21/23 14:05 ALT 10 U/L (0-41) 04/21/23 14:05 Alkaline Phosphatase 78 U/L (40-130) 04/21/23 14:05 Creatine Kinase 349 U/L (39-308) H* 04/21/23 14:05 Total Protein 5.0 g/dL (6.6-8.7) L 04/21/23 14:05 Albumin 2.9 g/dL (3.5-5.2) L 04/21/23 14:05 Globulin 2.1 g/dL (1.3-4.6) 04/21/23 14:05 Urine Color Agueda (Yellow) 04/21/23 16:23 Urine Appearance Clear (CLEAR) 04/21/23 16:23 Urine pH 5 (5-7) 04/21/23 16:23 Ur Specific [place] 1.010 (1.005-1.030) 04/21/23 16:23 Urine Protein Trace (Negative) 04/21/23 16:23 Urine Glucose (UA) Norm (Normal) 04/21/23 16:23 Urine Ketones 2+ (Negative) H 04/21/23 16:23 Urine Blood 3+ (Negative) H 04/21/23 16:23 Urine Nitrate Negative (Negative) 04/21/23 16:23 Urine Bilirubin 1+ (Negative) H 04/21/23 16:23 Urine Urobilinogen 1 mg/dL (Negative) H 04/21/23 16:23 Ur Leukocyte Esterase 2+ (Negative) H 04/21/23 16:23 Urine RBC 15-25 /hpf (0-2) H 04/21/23 16:23 Urine WBC 25-40 /hpf (0-5) H 04/21/23 16:23 Ur Squamous Epith Cells None /hpf (0-5) 04/21/23 16:23 Amorphous Sediment Not Reportable 04/21/23 16:23 Urine Bacteria 1+ /hpf (NONE) H 04/21/23 16:23 Urine Opiates Screen Negative ng/mL (Negative) 04/21/23 16:23 Ur Barbiturates Screen Negative ng/mL (Negative) 04/21/23 16:23 Ur Phencyclidine Scrn Negative ng/mL (Negative) 04/21/23 16:23 Ur Amphetamines Screen Negative ng/mL (Negative) 04/21/23 16:23 U Benzodiazepines Scrn Negative ng/mL (Negative) 04/21/23 16:23 Urine Cocaine Screen Negative ng/mL (Negative) 04/21/23 16:23 U Marijuana (THC) Screen Negative ng/mL (Negative) 04/21/23 16:23 EKG Data EKG 1: I personally reviewed and interpreted this EKG as follows: Interpretation: Twelve-lead EKG obtained and examined at 1359. Underlying sinus rhythm with significant ectopy/artifact. Ventricular rate is 84, NC interval is 162, QRS duration 78, QT 343, QTc 384. No ST elevation or depression, no acute ischemia noted. Critical Care Time Critical Care Time: Critical Care Time: Yes Total Critical Care Time: 75 Attestation: This case had a high probability of a clinically significant, sudden, or life threatening deterioration of this patient's condition which required my full and direct attention, intervention and personal management. Discharge Plan Discharge Patient Disposition: Admitted As Inpatient Admit Provider: Samuel Singer Clinical Impression: Acute CVA (cerebrovascular accident), Fall, Altered mental status Condition: Stable Coding Level of Care Code ED Can Striper for Devorah Milligan
[2023-04-21 14:37] LABS: Basophils % 0.1 %; Eosinophils % 0.1 %; Hematocrit 36.8 % (42.0-52.0); Hemoglobin 11.4 g/dL (11.7-16.6); Lymphocytes # 1.4 10^3/uL (0.8-4.8); Lymphocytes % 13.8 %; Mean Corpuscular Hemoglobin 28.6 pg (28.0-34.0); Mean Corpuscular Volume 92.2 fl (80-94); Mean Platelet Volume 10.2 fL (7.4-10.4); Monocytes # 0.9 10^3/uL (0.2-0.9); Monocytes % 8.2 %; Neutrophils # 8.06 10^3/uL (1.8-7.7); Neutrophils % 77.5 %; Nucleated Red Blood Cells % 0 %; Platelet Count 214 10^3/cmm (130-400); Red Blood Count 3.99 10^6/uL (4.1-5.3); Red Cell Distribution Width 14.1 % (12.1-15.1); White Blood Count 10.4 10^3/uL (4.0-10.0)
[2023-04-21 14:59] LABS: INR 1.23 (0.8-1.2)
[2023-04-21 15:00] LABS: Partial Thromboplastin Time 27.2 SECONDS (23.9-36.7)
[2023-04-21 15:05] LABS: Alanine Aminotransferase 10 U/L (0-41); Albumin Level 2.9 g/dL (3.5-5.2); Alkaline Phosphatase 78 U/L (40-130); Anion Gap 16.6 (5-19); Aspartate Amino Transferase 17 U/L (0-40); Blood Urea Nitrogen 18 mg/dL (8-23); Calcium 7.6 mg/dL (8.5-10.5); Carbon Dioxide 21 mmol/L (22-29); Chloride 101 mmol/L (98-107); Globulin 2.1 g/dL (1.3-4.6); Glucose 62 mg/dL (65-115); Osmolality Calculated 278 mOsm/kg (285-295); Potassium 4.6 mmol/L (3.5-5.1); Sodium 134 mmol/L (136-145); Total Bilirubin 1.7 mg/dL (0.15-1.2)
[2023-04-21 15:34] LABS: Creatine Phosphokinase 349 U/L (39-308)
[2023-04-21 15:39] LABS: Glucose Point of Care 56 mg/dL (70-110)
[2023-04-21 16:55] LABS: Amphetamines Screen Urine Negative (Negative); Barbiturates Screen Urine Negative (Negative); Benzodiazepines Screen Urine Negative (Negative); Cocaine Screen Urine Negative (Negative); Opiate Screen Urine Negative (Negative); PCP Screen Urine Negative (Negative); THC Screen Urine Negative (Negative)
[2023-04-21 17:08] LABS: Bilirubin Urine 1+ (Negative); Blood Urine 3+ (Negative); Glucose Urine UA Norm (Normal); Ketones Urine 2+ (Negative); Nitrate Urine Negative (Negative); Protein Urine Trace (Negative); Urine Appearance Clear (CLEAR); Urine Color Amber (Yellow); pH Urine 5 (5-7)
[2023-04-21 17:09] LABS: Add Urine Culture? Yes; Add Urine Microscopic? YES; Bacteria Urine 1+ /hpf; Leukocyte Esterase Urine 2+ (Negative); RBC Urine 15-25 /hpf (0-2); Urobilinogen Urine 1 mg/dL (Negative); WBC Urine 25-40 /hpf (0-5)
[2023-04-21] MEDS: sodium chloride 0.9% 1,000 ML 999 ML IV (17:31)
[2023-04-21] MEDS: dextrose 50% syringe 50 mL IVP (17:34)
--- NOTE | 2023-04-21 18:46 | P.HP_ITS ---
Providers/Chief Complaint Admitting Physician: Samuel Singer Primary Care Provider: CASSY Vergara Chief Complaint: LEFT SIDED WEAKNESS History of Present Illness 73-year-old gentleman with history of CAD, COPD, smoking, GERD, HTN, HLD, KIANA, RLS, other comorbidities who also takes care of his who has dementia, was brought in for evaluation due to increased weakness, he is not a good historian, but does Giurgius history obtained from EMS and ER physician that yesterday around 10 AM fell yesterday and then laid in the living room for about 3 hours. Sounds like his had covered him up to let him rest on the floor eventually with the help of his was able to get to the couch where he stayed until today and EMS found him. Noted with generalized weakness, but more weak in left upper and lower extremity, with some report of facial droop as well. Seems that report is that both patient and his may have dementia. He does not remember history of dementia, do not see noted in the chart. However, he is definitely not a good historian. She denies other recent health issues. During evaluation on [facility] floor he is found to have a number of insects resembling bedbugs living under his toenails, several of which could be extracted and sent for identification. He states that he still smokes but has been cutting down. Lives at home only with his . In case could not make his own decisions names his sister Delmis Gracia as surrogate decision-maker. Review of Systems Const: Denies: fever(s), chills, body aches or malaise ENMT: Denies: throat pain Card: Denies: chest pain, edema, pre-syncope or dyspnea on exertion Resp: Denies: dyspnea, productive cough, change in phlegm color or hemoptysis GI: Denies: abdominal pain, nausea, vomiting, diarrhea, constipation, hematochezia or melena : Denies: flank pain, difficulty urinating, urinary frequency or hematuria Musc: Denies: back pain, joint swelling or joint redness Skin/Breast: Denies: rash or new lesions Neuro: Reports: weakness in extremities; Denies: headache(s) or numbness in extremities Medications/Allergies Home Medications Medication Instructions Recorded Confirmed Last Taken Type albuterol sulfate 90 mcg/actuation 2 inh inhalation Q4H PRN shortness 04/08/23 04/21/23 Unknown Rx aerosol inhaler of breath or wheezing #18 grams budesonide-formoterol HFA 80 2 inh inhalation BID #10.2 grams 04/08/23 04/21/23 Unknown Rx mcg-4.5 mcg/actuation aerosol inhaler (Symbicort) cyanocobalamin (vitamin B-12) 1,000 mcg IM Q30D 04/08/23 04/21/23 04/05/23 History 1,000 mcg/mL injection solution triamcinolone acetonide 0.1 % 1 applic topical BID #80 grams 04/08/23 04/21/23 Unknown Rx topical cream nitroglycerin 0.4 mg sublingual 0.4 mg sublingual Q5M PRN Chest 04/21/23 04/21/23 Unknown History tablet (Nitrostat) Pain pantoprazole 40 mg tablet,delayed 40 mg PO BID 04/21/23 04/21/23 Unknown History release Allergies Allergy/AdvReac Type Severity Reaction Status Date / Time haloperidol AdvReac Intermediate Made Verified 04/21/23 14:20 nervous. Couldn't sit still. PFSH Acute PFSH: Medical History Alcohol abuse Anticoagulant long-term use CAD (coronary artery disease) Constipation COPD (chronic obstructive pulmonary disease) Delusional disorder Depression with anxiety Family history of factor V Leiden mutation Frequent urinary tract infections Frequent urinary tract infections GERD (gastroesophageal reflux disease) High risk medication use History of GI bleed Hx of deep venous thrombosis Hx pulmonary embolism Hyperlipidemia Hypertension Inflammatory arthritis Ocular rosacea KIANA (obstructive sleep apnea) Restless leg syndrome Undifferentiated connective tissue disease Surgical History History of colonoscopy 2020 History of esophagogastroduodenoscopy (EGD) (02/28/22) Hx of arthroscopy of shoulder Family History Father CAD (coronary artery disease) Other Hyperlipidemia Hypertension Rheumatoid arthritis Stroke Denies family history of Diabetes Lupus Chronic kidney disease (CKD) Anesthesia complication Bleeding disorder Cancer Social History Smoking and tobacco status: current every day smoker cigarettes Packs smoked per day: 0.50 Years cigarettes smoked: 50 Quit status (tobacco): has tried quititng Number of times tried to quit tobacco: 10 Second hand smoke exposure: Yes Smoking risk assessment/counseling performed?: No Alcohol intake: former Year of sobriety/quit date alcohol: 2017 Desire information about alcohol rehabilitation?: No Counseling given: No Lives independently: Yes Household members: spouse Marital status: service: No Current occupational status: retired Current gender identity: Male Vitals/I&O/Wt Last Vital Signs Pulse 78 04/21/23 16:33 Resp 16 04/21/23 16:33 BP 112/74 04/21/23 16:33 Pulse Ox 95 04/21/23 16:33 O2 Del Method Room Air 04/21/23 16:33 Physical Exam Const: COMMON NORMALS: patient oriented x3 and alert GENERAL APPEARANCE: cooperative ORIENTATION/CONSCIOUSNESS: Yes awake HENMT: COMMON NORMALS: oropharynx normal Neck/C-Spine: COMMON NORMALS: no JVD Resp: COMMON NORMALS: normal respiratory effort and clear to auscultation bilaterally AUSCULTATION: clear to auscultation bilaterally Cardio: COMMON NORMALS: no JVD, regular rhythm, S1 normal heart sound present, S2 normal heart sound present and No murmurs present (Cardio) RHYTHM: regular rhythm HEART SOUNDS: S1 normal heart sound present and S2 normal heart sound present GI: COMMON NORMALS: Normal to inspection, nondistended, normoactive bowel sounds present, Soft to palpation and non-tender PALPATION: Yes Soft to palpation Extremity: COMMON NORMALS: no joint enlargement and no pedal edema Neuro: COMMON NORMALS: patient oriented x3 and moves all extremities SENSORIUM/ORIENTATION: Yes alert OTHER: Awake and alert. Interacting, following directions. No trouble tracking. Visual luciano full to confrontation. No visual extinction. FNF WNL on the right. Left side upper extremity weakness with significant difficulty. No drift right upper or lower extremity. Left lower extremity with improvement in symptoms, no drift currently. Left upper extremity drifts down to bed. Sensation symmetrical, no sensory extinction. Skin: OTHER: Bedbugs under toenails. Data 04/21/23 14:05 04/21/23 14:05 A&P Assessment and plan (1) Acute CVA (cerebrovascular accident): Subacute CVA suspected occurring sometime yesterday, last known normal before 10 AM, noted right parietal MCA territory CVA. Not a candidate for acute intervention. Discussed findings with him. He is in poor condition, seems lives at home with his who has dementia. He himself is not a good historian. Disheveled, bedbugs under toenails. Discussed with him regarding CVA. He does still smoke, but states that he has been reducing. Discussed with him regarding smoking cessation. Additionally we will check cholesterol, A1c. Bubble study TTE. Monitor on telemetry. CTA noted without significant carotid disease. Permissive hypertension. Discussed aspirin, statin. Discussed risk of brain edema, other complications with MCA territory CVA. Monitor blood pressures. Monitor neurologic condition. Assessment by PT, OT, ST, case management. Follow-up with neurology. CT head, CTA head and neck appreciated. Chest x-ray appreciated. (2) Fall: Assessed in ER, without other trauma apart from mild rhabdomyolysis. Fall precautions. PT, OT assessment. Case management assessment for discharge planning. State notified in ER. UDS noted. Denies any recreational drug use, denies alcohol consumption. (3) Rhabdomyolysis: CK noted. Mild. Follow-up CK. (4) Infestation by bed bug: Notify infection control. Isolation precautions. Seems to have an infestation with bedbugs taking jail under his toenails, will apply permethrin. (5) UTI (urinary tract infection): UA noted. Ceftriaxone, follow-up urine culture. Qualifiers: Urinary tract infection type: acute cystitis Hematuria presence: with hematuria Qualified Code(s): N30.01 - Acute cystitis with hematuria (6) Hyperbilirubinemia: Mild hyperbilirubinemia, no abdominal pain. No right upper quadrant tenderness. Suspect secondary to dehydration. Received fluid challenge in ER. Oral intake is tolerating. Reassess liver parameters. (7) Smoking addiction: Discussed smoking cessation with him for 5 minutes. He is trying to cut down. He is agreeable to nicotine patch, continue lozenges as needed for cravings. Continue to encourage cessation. (8) Goals of care, counseling/discussion: As per discussion of CODE STATUS he would want cardiopulmonary resuscitation in case of cardiopulmonary arrest. In case could not make decisions for himself names his sister, Delmis Gracia as surrogate decision-maker. Plan CAD COPD: Not in exacerbation GERD: PPI HTN: Permissive hypertension HLD: Statin KIANA RLS Other comorbidities Discussed with ER physician. ER documentation reviewed. Attestations Medical Necessity Statement*: Admission of over 2 midnights anticipated for assessment management of acute MCA territory CVA. Diagnoses Acute CVA (cerebrovascular accident) I63.9 Fall W19.XXXA Rhabdomyolysis M62.82 Infestation by bed bug B88.8 UTI (urinary tract infection) N30.01 Urinary tract infection type: acute cystitis Hematuria presence: with hematuria Hyperbilirubinemia E80.6 Smoking addiction F17.200 Goals of care, counseling/discussion Z71.89
[2023-04-21 19:37] LABS: Glucose Point of Care 84 mg/dL (70-110)
[2023-04-21] MEDS: permethrin cream 5% 60 gm 1 APPLIC TOPICAL (20:32)
[2023-04-21] MEDS: nicotine 14 mg Patch 1 PATCH TRANSDERMA (20:32)
[2023-04-21] MEDS: aspirin 81 mg EC Tablet 162 MG PO (20:33)
[2023-04-21] MEDS: atorvastatin 40 mg Tablet PO (20:33)
[2023-04-21] MEDS: pantoprazole DR 40 mg Tablet PO (20:33)
[2023-04-21] MEDS: heparin 5,000 unit/mL INJ 1 mL 5000 UNIT SUBCUT (20:34)
[2023-04-21] MEDS: cefTRIAXone 1,000 MG in sodium chloride 0.9% (plus) 50 ML 100 MG IV (20:34)
[2023-04-22] VITALS (14 sets, daily range): BP systolic 107–115; BP diastolic 66–69; PULSE 68–96; RESP 16–18; TEMP 36.6–37; O2SAT 94–99
[2023-04-22] MEDS: ipratropium-albuterol 3 mL Neb INHALATION ×4 (02:23→20:26)
[2023-04-22 05:53] LABS: Estmated Average Glucose 94; Hemoglobin A1C 4.9 % (4.0-6.0)
[2023-04-22 06:00] LABS: Alanine Aminotransferase 11 U/L (0-41); Albumin Level 3.1 g/dL (3.5-5.2); Alkaline Phosphatase 84 U/L (40-130); Anion Gap 18.1 (5-19); Aspartate Amino Transferase 18 U/L (0-40); Blood Urea Nitrogen 17 mg/dL (8-23); Calcium 8.5 mg/dL (8.5-10.5); Carbon Dioxide 21 mmol/L (22-29); Chloride 102 mmol/L (98-107); Chol HDL Ratio 3.74 mg/dL (1.0-5.00); Cholesterol 127 mg/dL (0-200); Creatine Phosphokinase 317 U/L (39-308); Globulin 2.4 g/dL (1.3-4.6); Glucose 70 mg/dL (65-115); HDL Cholesterol 34 mg/dL (60-100); LDL Cholesterol Calculated 77 mg/dL (50-129); LDL HDL Ratio 2.26 RATIO (0.00-3.22); Osmolality Calculated 284 mOsm/kg (285-295); Potassium 4.1 mmol/L (3.5-5.1); Sodium 137 mmol/L (136-145); Total Bilirubin 1.6 mg/dL (0.15-1.2); Total Protein 5.5 g/dL (6.6-8.7); Triglycerides 81 mg/dL (0-150)
[2023-04-22] MEDS: heparin 5,000 unit/mL INJ 1 mL 5000 UNIT SUBCUT ×2 (06:23→18:06)
[2023-04-22] MEDS: pantoprazole DR 40 mg Tablet PO ×2 (10:38→20:08)
[2023-04-22] MEDS: aspirin 81 mg EC Tablet 162 MG PO (10:38)
--- NOTE | 2023-04-22 17:12 | P.PN_ITS ---
Subjective Subjective: No new complaints today. Continues to have left-sided weakness. Speech is slightly slurred. Elevated therapy evaluations. Medications: Reviewed: Yes Vitals/I&O/Wt Last Vital Signs Temp 97.8 F 04/22/23 15:43 Pulse 68 04/22/23 15:43 Resp 17 04/22/23 15:43 BP 115/66 04/22/23 15:43 Pulse Ox 94 04/22/23 15:43 O2 Del Method Room Air 04/22/23 15:43 04/22/23 04/22/23 04/22/23 06:59 14:59 22:59 Intake Total 240 / 240 Output Total 250 / 250 Balance -250 / 800 240 / 240 Physical Exam Narrative: General: No acute distress, AO x3 HEENT: PERRLA, pupils bilaterally equal and reactive, pallors not present Chest: Normal vesicular breath sounds, no added sounds, equal good air entry bilaterally CVS: S1-S2 regular, no murmurs, no tachycardia, no gallops, no rubs Abdomen: Soft, nontender, no organomegaly, bowel sounds present Neuro: Left upper extremity 3 out of 5, left lower extremity 5 out of 5, right upper and lower extremity 5 out of 5. Data 04/21/23 14:05 04/22/23 05:09 A&P Assessment and plan (1) Acute CVA (cerebrovascular accident): Subacute CVA, noted right parietal MCA territory CVA. Not a candidate for acute intervention given uncertain timeline, out of tPA window Permissive hypertension allowed, however systolic mostly ranging less than 120 mmhg . Started on aspirin, statin. Monitor neurologic condition. Assessment by PT, OT, ST, case management. Follow-up with neurology as outpatient (2) Fall: Assessed in ER, without other trauma apart from mild rhabdomyolysis. Fall precautions. PT, OT assessment. Case management assessment for discharge planning. State notified in ER due to poor living conditions. He was found with bed bugs. (3) Rhabdomyolysis: CK noted. Mild. Follow-up CK. (4) Infestation by bed bug: Notifed infection control. Isolation precautions no wremoved since patient has been cleaned, bathed, all clothes changed. (5) UTI (urinary tract infection): UA noted. Ceftriaxone, follow-up urine culture. Qualifiers: Urinary tract infection type: acute cystitis Hematuria presence: with hematuria Qualified Code(s): N30.01 - Acute cystitis with hematuria (6) Hyperbilirubinemia: Mild hyperbilirubinemia, no abdominal pain. No right upper quadrant tenderness. Suspect secondary to dehydration. Received fluid challenge in ER. Oral intake is tolerating. Reassess liver parameters. (7) Smoking addiction: (8) Goals of care, counseling/discussion: Plan Full code Dvt ppx: Heparin s/c Attestations Medical Necessity Statement*: Therapy assessments today, appropriate disposition planning, poststroke monitoring Coding Level of Care Code Acute Code for Chg Fwd Moderate MDM includes number and complexity of problems actively addressed during encounter, amount and/or complexity of data reviewed/ordered and lili cribed risk of complication, morbidity or mortality of management as documented Diagnoses Acute CVA (cerebrovascular accident) I63.9 Fall W19.XXXA Rhabdomyolysis M62.82 Infestation by bed bug B88.8 UTI (urinary tract infection) N30.01 Urinary tract infection type: acute cystitis Hematuria presence: with hematuria Hyperbilirubinemia E80.6 Smoking addiction F17.200 Goals of care, counseling/discussion Z71.89
[2023-04-22] MEDS: nicotine 14 mg Patch 1 PATCH TRANSDERMA (18:05)
[2023-04-22] MEDS: cefTRIAXone 1,000 MG in sodium chloride 0.9% (plus) 50 ML 100 MG IV (18:34)
--- NOTE | 2023-04-22 19:06 | USCV_ITS ---
Azevedo, Lei Age: 73 Gender: M : 1950 Exam Date: 04/21/2023 20:15 Ordering Phys: Samuel Singer MD Technologist: Nalini Maradiaga Exam Location: [facility] [place] Indication: CVA, ECHO WITH BUBBLES STUDY BP: 110 / 67 HR: 70 Rhythm: Sinus Technical Quality: Poor secondary to COPD MEASUREMENTS (Male / Female) Normal Values 2D ECHO LVOT Diameter 2.0 cm LV Ejection Fraction MOD 2C 67.3 % LV Ejection Fraction 2C AL 67.9 % LA Diameter 2.1 cm LA Width 2.9 cm LA Height 4.5 cm RA Width 3.0 cm RA Height 4.7 cm Aorta at Sinotubular Diameter 2.6 cm M-MODE Aortic Annulus Diameter 2.9 cm LA Ao Ratio MM 0.7 MV E Point Septal Separation 0.9 cm DOPPLER AV Peak Velocity 115.0 cm/s LVOT Peak Velocity 101.0 cm/s AV Area Cont Eq vti 2.5 cm squared AV Area Cont Eq pk 2.8 cm squared MV Peak Velocity 62.0 cm/s MV Area PHT 3.3 cm squared Mitral E to A Ratio 0.8 MV E' Velocity 31.5 cm/s Mitral E to MV E' Ratio 9.7 Mitral E to LV E' Lateral Ratio 10.2 Mitral E to LV E' Septal Ratio 9.4 TR Peak Velocity 189.4 cm/s TR Peak Gradient 14.3 mmHg TR Mean Velocity 167.8 cm/s TR Mean Gradient 11.3 mmHg TR Velocity Time Integral 58.7 cm TV Peak E Velocity 49.0 cm/s Right Atrial Pressure 8.0 mmHg Pulmonary Artery Systolic Pressu 22.3 mmHg FINDINGS Left Ventricle Left ventricle is normal size. LV systolic function is normal with EF of 60 to 65%. No regional wall motion abnormalities are seen. Grade 1 diastolic dysfunction Right Ventricle Normal in size and function Right Atrium Grossly normal. Bubble study is of limited quality but grossly no [id number] shunting noted. Left Atrium Normal in size Mitral Valve Grossly normal. Aortic Valve Grossly normal. No significant stenosis or regurgitation. Tricuspid Valve Mild tricuspid regurgitation. Insufficient TR jet to calculate RVSP. Pulmonic Valve Not well visualized Pericardium Normal Aorta Normal in size IVC Appears to be normal CONCLUSIONS Technically limited quality echocardiogram because of poor ultrasonic windows. LV systolic function is normal with EF of 60 to 65%. Grade 1 diastolic dysfunction. Mild tricuspid regurgitation The bubble study is of limited quality, grossly no right to left shunting noted. Enzo Monge MD (Electronically Signed) Final Date: 22 April 2023 14:32 S
[2023-04-22] MEDS: atorvastatin 40 mg Tablet PO (20:08)
[2023-04-23] VITALS (14 sets, daily range): BP systolic 107–130; BP diastolic 63–73; PULSE 64–96; RESP 7–18; TEMP 36.1–37.2; O2SAT 94–99
[2023-04-23] MEDS: ipratropium-albuterol 3 mL Neb INHALATION ×4 (02:43→20:55)
[2023-04-23 05:41] LABS: Alanine Aminotransferase 12 U/L (0-41); Alkaline Phosphatase 78 U/L (40-130); Anion Gap 15.8 (5-19); Aspartate Amino Transferase 20 U/L (0-40); Blood Urea Nitrogen 18 mg/dL (8-23); Calcium 8.3 mg/dL (8.5-10.5); Carbon Dioxide 23 mmol/L (22-29); Chloride 104 mmol/L (98-107); Globulin 2.3 g/dL (1.3-4.6); Glucose 93 mg/dL (65-115); Osmolality Calculated 290 mOsm/kg (285-295); Potassium 3.8 mmol/L (3.5-5.1); Sodium 139 mmol/L (136-145); Total Bilirubin 0.7 mg/dL (0.15-1.2); Total Protein 5.3 g/dL (6.6-8.7)
[2023-04-23] MEDS: heparin 5,000 unit/mL INJ 1 mL 5000 UNIT SUBCUT ×2 (06:09→18:06)
[2023-04-23] MEDS: pantoprazole DR 40 mg Tablet PO ×2 (10:44→20:17)
[2023-04-23] MEDS: aspirin 81 mg EC Tablet 162 MG PO (10:45)
--- NOTE | 2023-04-23 13:08 | CTR_ITS ---
PROCEDURE INFORMATION: Exam: CT Head Without Contrast Exam date and time: 04/23/2023 1:25 PM Age: 73 years old Clinical indication: Altered mental status/memory loss and weakness, extremity; Left; Additional info: Recent stroke, now with new anisocoria, evaluate for hemorrhagic conversion vs new stroke. Recent TECHNIQUE: Imaging protocol: Computed tomography of the head without contrast. 294image(s) are provided. Radiation optimization: All CT scans at this facility use at least one of these dose optimization techniques: automated exposure control; mA and/or kV adjustment per patient size (includes targeted exams where dose is matched to clinical indication); or iterative reconstruction. Other technique: Axial images are available with sagittal and coronal reconstruction views. Automated dose exposure control is utilized. The DLP is 1270.73. REPORTING DATA: Count of CT and Cardiac NM exams in prior 12 months: This patient has received 2 known CTs and 0 known cardiac nuclear medicine studies in the 12 months prior to the current study. COMPARISON: 1. CT head wo con* [id number] 04/21/2023 1:[address] head wo con* [id number] 01/20/2022 12:48 AM RADIATION DOSE METRICS: Total DLP (mGy-cm): 1270.73 FINDINGS: Brain: There are moderate cerebral atrophic changes overall. Scattered dural chronic calcifications are appreciated. No interval mass effect or layering hemorrhage is appreciated. Oh, white matter differentiation appears overall maintained. There are extensive white matter and periventricular microvascular ischemic related changes bilaterally. This appears most pronounced as well as similar of the right posterior periventricular and parietal junction level relatively similar in appearance and distribution. There does appear to be some increased vascular density of the temporal insula level and could also represent atherosclerotic change as well as slow flow correspondingly.There are central lacunar changes demonstrated. Cerebral ventricles: There is some compensatory ventricular enlargement similar overall. Pituitary gland and sella: Partially empty sella variant is demonstrated. Paranasal sinuses: The paranasal sinuses appear well-aerated overall. Mastoid air cells: The mastoid air cells appear well-aerated overall. Orbital cavities: Symmetric appearance of the orbital soft tissues is demonstrated. Bones/joints: Osseous alignment is maintained.No interval displaced fracture or dislocation is appreciated. Soft tissues: No radiopaque foreign body or subcutaneous emphysema is appreciated. Vasculature: Atherosclerotic vascular changes are demonstrated. Other findings: There is some motion artifact present. No other significant interval changes are appreciated. CT/CT head wo con* [id number] IMPRESSION: There are bilateral multifocal microvascular ischemic related changes with the epicenter similar most pronounced about the right posterior ventricular parietal junction. The overall appearance and location is relatively similar with no interval extra-axial hemorrhage or internal hemorrhagic conversion currently appreciated.
--- NOTE | 2023-04-23 16:01 | P.PN_ITS ---
Subjective Subjective: Patient complains of generalized weakness. Noted to have anisocoria on exam today for which CT head was repeated. Overall CT head appears unchanged over previous. No hemorrhagic transformation noted. Medications: Reviewed: Yes Vitals/I&O/Wt Last Vital Signs Temp 98.0 F 04/23/23 15:29 Pulse 86 04/23/23 15:29 Resp 15 04/23/23 15:29 BP 111/63 04/23/23 15:29 Pulse Ox 99 04/23/23 15:29 O2 Del Method Room Air 04/23/23 15:29 04/23/23 04/23/23 04/23/23 06:59 14:59 22:59 Intake Total 600 / 600 Balance 600 / 600 Physical Exam Narrative: General: No acute distress, AO x3 HEENT: PERRLA, pupils bilaterally equal and reactive, pallors not present Chest: Scattered wheezing to auscultation B/L CVS: S1-S2 regular, no murmurs, no tachycardia, no gallops, no rubs Abdomen: Soft, nontender, no organomegaly, bowel sounds present Neuro: Left upper extremity 3 out of 5, left lower extremity 5 out of 5, right upper and lower extremity 5 out of 5. anisocoria left pupil appears larger compared to right , B/L recative to light Data 04/21/23 14:05 04/23/23 04:46 Micro: Microbiology 04/21/23 16:23 Urine Culture - Final Urine,Clean Catch Citrobacter koseri Urine Culture Final 04/23/23-1533 Organism 1 Citrobacter koseri [place] Count >100,000 CFU/ml >100,000 COLS/ML Mixed urogenital geovanny ON DAY 2 Ryan banerjee M.I.C[facility] RX --------- ------ * Amikacin <=16 S * Amoxicillin/Clavulanate <=8/4 S * Ampicillin >16 R * Ampicillin/Sulbactam <=8/4 S * Aztreonam <=4 S * Cefepime <=8 S * Ceftriaxone <=1 S * Cefuroxime <=4 S * Ciprofloxacin <=1 S * Gentamicin <=2 S * Imipenem <=1 S * Levofloxacin <=2 S * Nitrofurantoin <=32 S * Tetracycline <=4 S * Trimethoprim/Sulfamethoxazole <=2/38 S * Piperacillin/Tazobactam <=16 S Other data: Exam: CT Head Without Contrast Exam date and time: 04/23/2023 1:[address]/CT head wo con* [id number] IMPRESSION: There are bilateral multifocal microvascular ischemic related changes with the epicenter similar most pronounced about the right posterior ventricular parietal junction. The overall appearance and location is relatively similar with no interval extra-axial hemorrhage or internal hemorrhagic conversion currently appreciated. ? A&P Assessment and plan (1) Acute CVA (cerebrovascular accident): Subacute CVA, noted right parietal MCA territory CVA. Not a candidate for acute intervention given uncertain timeline, out of tPA window Permissive hypertension allowed, however systolic mostly ranging less than 120 mmhg . Started on aspirin, statin. Monitor neurologic condition. Assessment by PT, OT, ST, case management. Follow-up with neurology as outpatient Noted to have anisocoria today for which CT head was repeated, no new changes or hemorrhagic transformation. 3 (2) Fall: Assessed in ER, without other trauma apart from mild rhabdomyolysis. Fall precautions. PT, OT assessment. Case management assessment for discharge planning. State notified in ER due to poor living conditions. He was found with bed bugs. (3) COPD (chronic obstructive pulmonary disease): Patient is currently on DuoNeb every 6 hours Add budesonide 0.5 mg twice daily inhalation given some scattered wheezing and crackles on exam today. Discontinue IV fluids. Lasix 20 mg IV x 1 (4) Rhabdomyolysis: CK noted. Mild. (5) Infestation by bed bug: Notifed infection control. Isolation precautions no wremoved since patient has been cleaned, bathed, all clothes changed. (6) UTI (urinary tract infection): UA noted. Ceftriaxone appropriate in keeping with blood cx Qualifiers: Urinary tract infection type: acute cystitis Hematuria presence: with hematuria Qualified Code(s): N30.01 - Acute cystitis with hematuria (7) Hyperbilirubinemia: Mild hyperbilirubinemia, no abdominal pain. No right upper quadrant tenderness. Suspect secondary to dehydration. Received fluid challenge in ER. Oral intake is tolerating. Reassess liver parameters. (8) Smoking addiction: Plan Full code dispo: transition to SNF, poor living conditions at home Dvt ppx: Heparin s/c Attestations Medical Necessity Statement*: repeat Ct head, iv lasix today given developing rales and wheezing, disposition planning Coding Level of Care Code Acute Code for Chg Fwd Diagnoses Acute CVA (cerebrovascular accident) I63.9 Fall W19.XXXA COPD (chronic obstructive pulmonary disease) J44.9 Rhabdomyolysis M62.82 Infestation by bed bug B88.8 UTI (urinary tract infection) N30.01 Urinary tract infection type: acute cystitis Hematuria presence: with hematuria Hyperbilirubinemia E80.6 Smoking addiction F17.200
[2023-04-23] MEDS: FUROsemide 10 mg/mL SDV 2mL 20 MG IVP (16:31)
[2023-04-23 16:37] LABS: SARS Covid-2 Antigen negative (Negative)
[2023-04-23] MEDS: nicotine 14 mg Patch 1 PATCH TRANSDERMA (18:06)
[2023-04-23] MEDS: cefTRIAXone 1,000 MG in sodium chloride 0.9% (plus) 50 ML 100 MG IV (18:07)
[2023-04-23] MEDS: atorvastatin 40 mg Tablet PO (20:17)
[2023-04-23] MEDS: budesonide 0.5 mg/2 mL Neb INHALATION (20:55)
[2023-04-24] VITALS (10 sets, daily range): BP systolic 105–128; BP diastolic 62–80; PULSE 72–80; RESP 16–18; TEMP 36.7–37.4; O2SAT 94–96
[2023-04-24 06:10] LABS: Alanine Aminotransferase 13 U/L (0-41); Albumin Level 3.1 g/dL (3.5-5.2); Alkaline Phosphatase 77 U/L (40-130); Aspartate Amino Transferase 22 U/L (0-40); Blood Urea Nitrogen 18 mg/dL (8-23); Calcium 8.4 mg/dL (8.5-10.5); Carbon Dioxide 25 mmol/L (22-29); Chloride 102 mmol/L (98-107); Globulin 2.3 g/dL (1.3-4.6); Glucose 100 mg/dL (65-115); Osmolality Calculated 286 mOsm/kg (285-295); Sodium 137 mmol/L (136-145); Total Bilirubin 0.5 mg/dL (0.15-1.2); Total Protein 5.4 g/dL (6.6-8.7)
[2023-04-24] MEDS: heparin 5,000 unit/mL INJ 1 mL 5000 UNIT SUBCUT (06:12)
[2023-04-24] MEDS: budesonide 0.5 mg/2 mL Neb INHALATION (07:27)
[2023-04-24] MEDS: ipratropium-albuterol 3 mL Neb INHALATION (07:28)
[2023-04-24] MEDS: aspirin 81 mg EC Tablet 162 MG PO (08:53)
[2023-04-24] MEDS: pantoprazole DR 40 mg Tablet PO (08:53)
--- NOTE | 2023-04-24 10:22 | PM.DCS ---
Discharge Providers Date of Admission: 04/21/23 16:35 Date of Discharge: April 24, 2023 Attending Provider at Admission: Samuel Singer Attending Provider at Discharge: Justine Thompson MD Primary Care Provider: CASSY Vergara Diagnoses at Discharge Discharge Diagnosis (1) Acute CVA (cerebrovascular accident): Status: Acute (2) Fall: Status: Acute (3) COPD (chronic obstructive pulmonary disease): Status: Acute (4) Rhabdomyolysis: Status: Acute (5) Infestation by bed bug: Status: Acute (6) UTI (urinary tract infection): Status: Acute Qualifiers: Urinary tract infection type: acute cystitis Hematuria presence: with hematuria Qualified Code(s): N30.01 - Acute cystitis with hematuria (7) Hyperbilirubinemia: Status: Acute (8) Smoking addiction: Status: Acute Reason for Visit Reason for Visit: LEFT SIDED WEAKNESS Hospital Course Hospital Course 73-year-old gentleman with history of CAD, COPD, smoking, GERD, HTN, HLD, KIANA, RLS, other comorbidities who presented with ?left upper and lower extremity, with some report of facial droop as well. Hospital course as follows: (1) Acute CVA (cerebrovascular accident): Subacute CVA, noted right parietal MCA territory CVA.? Not a candidate for acute intervention given uncertain timeline, out of tPA window. Patient has been started on aspirin, statin.? On 04/23 he was noted to have anisocoria for which CT head was repeated- no evidence of new infarcts or hemorrhagic transformation. Assessments obtained by PT, OT, ST, case management. Follow-up with neurology as outpatient (2) COPD (chronic obstructive pulmonary disease): Patient received treatment with DuoNeb every 6 hours and budesonide 0.5 mg twice daily inhalation (3) Rhabdomyolysis: Mild. received IVF fluids (4) Infestation by bed bug: patient was bathed, changed clothes and received treatment with permethrin. (5) UTI (urinary tract infection): urine culture showed Citrobacter Koseri.? He received ceftriaxone while inaptient. Discharged with 4 days of cefuroxime to complete 7 days of abx. (6) Hyperbilirubinemia: Mild hyperbilirubinemia, now resolved, Suspect secondary to dehydration.? (8) Smoking addiction: Counseleld regarding cessation Physical Exam Narrative: General: No acute distress, AO x3 HEENT: PERRLA, pupils bilaterally equal and reactive, pallors not present Chest: Normal vesicular breath sounds, no added sounds, equal good air entry bilaterally CVS: S1-S2 regular, no murmurs, no tachycardia, no gallops, no rubs Abdomen: Soft, nontender, no organomegaly, bowel sounds present Neuro: No focal deficits, no facial deformity, AO x3, power 3/5 LUE, 4/5 LLE, 5/5 RUL and RLL Discharge Data Studies Completed and Pending Completed Studies During Hospitalization Category Date Time Status CT head wo con* [id number] Stat Cat Scan 04/21/23 13:[address] head wo con* [id number] Stat Cat Scan 04/23/23 13:08 Completed CTA head neck [CT angio headneck* [id number]] Stat Cat Scan 04/21/23 13:43 Completed XR chest 1V portable [id number] Stat Exams 04/21/23 13:27 Completed CV. echo w/w bubble cont [id number] Routine Ultrasound 04/22/23 19:06 Completed Pending at discharge Category Date Time Status Tick (and Other Arthropods) ID Routine Lab 04/21/23 18:37 Received Radiology Impressions Chest X-Ray 04/21/23 13:27 IMPRESSION: Stable pleural calcifications on the right with decreased left costophrenic angle blunting. Head/Neck CTA 04/21/23 13:43 IMPRESSION: No large vessel stenosis or occlusion. IMPRESSION: No stenosis or occlusion. REFERENCES: NASCET CRITERIA. The degree of stenosis in the cervical segment of the internal carotid artery is based on NASCET criteria. Normal is no stenosis. Mild is less than 50% stenosis. Moderate is 50-69% stenosis. Severe is 70% to 99% stenosis. Total occlusion is no detectable patent lumen. Head CT 04/23/23 13:08 IMPRESSION: There are bilateral multifocal microvascular ischemic related changes with the epicenter similar most pronounced about the right posterior ventricular parietal junction. The overall appearance and location is relatively similar with no interval extra-axial hemorrhage or internal hemorrhagic conversion currently appreciated. Laboratory Results WBC 10.4 10^3/uL (4.0-10.0) H 04/21/23 14:05 RBC 3.99 10^6/uL (4.1-5.3) L 04/21/23 14:05 Hgb 11.4 g/dL (11.7-16.6) L 04/21/23 14:05 Hct 36.8 % (42.0-52.0) L 04/21/23 14:05 MCV 92.2 fl (80-94) 04/21/23 14:05 MCH 28.6 pg (28.0-34.0) 04/21/23 14:05 MCHC 31.0 g/dL (30.0-36.0) 04/21/23 14:05 RDW 14.1 % (12.1-15.1) 04/21/23 14:05 Plt Count 214 10^3/cmm (130-400) 04/21/23 14:05 MPV 10.2 fL (7.4-10.4) 04/21/23 14:05 Neut % (Auto) 77.5 % 04/21/23 14:05 Lymph % (Auto) 13.8 % 04/21/23 14:05 [place] % (Auto) 8.2 % 04/21/23 14:05 Eos % (Auto) 0.1 % 04/21/23 14:05 Baso % (Auto) 0.1 % 04/21/23 14:05 Neut # (Auto) 8.06 10^3/uL (1.8-7.7) H 04/21/23 14:05 Lymph # (Auto) 1.4 10^3/uL (0.8-4.8) 04/21/23 14:05 [place] # (Auto) 0.9 10^3/uL (0.2-0.9) 04/21/23 14:05 Eos # (Auto) 0.0 10^3/uL (0.0-0.8) 04/21/23 14:05 Baso # (Auto) 0.0 10^3/uL (0.0-0.1) 04/21/23 14:05 Nucleated RBC % (auto) 0 % 04/21/23 14:05 Nucleated RBCs # 0.0 /100WBC 04/21/23 14:05 PT 15.90 SECONDS (12.1-14.9) H 04/21/23 14:05 INR 1.23 (0.8-1.2) H 04/21/23 14:05 APTT 27.2 SECONDS (23.9-36.7) 04/21/23 14:05 Sodium 137 mmol/L (136-145) 04/24/23 05:20 Potassium 4.0 mmol/L (3.5-5.1) 04/24/23 05:20 Chloride 102 mmol/L (98-107) 04/24/23 05:20 Carbon Dioxide 25 mmol/L (22-29) 04/24/23 05:20 Anion Gap 14.0 (5-19) 04/24/23 05:20 BUN 18 mg/dL (8-23) 04/24/23 05:20 Creatinine 0.9 mg/dL (0.7-1.2) 04/24/23 05:20 GFR Calculation Not Reportable 04/24/23 05:20 Glucose 100 mg/dL (65-115) 04/24/23 05:20 POC Glucose 84 mg/dL (70-110) 04/21/23 19:31 Estimat Average Glucose 94 04/22/23 05:09 Hemoglobin A1c 4.9 % (4.0-6.0) 04/22/23 05:09 Calculated Osmolality 286 mOsm/kg (285-295) 04/24/23 05:20 Calcium 8.4 mg/dL (8.5-10.5) L 04/24/23 05:20 Total Bilirubin 0.5 mg/dL (0.15-1.2) 04/24/23 05:20 AST 22 U/L (0-40) 04/24/23 05:20 ALT 13 U/L (0-41) 04/24/23 05:20 Alkaline Phosphatase 77 U/L (40-130) 04/24/23 05:20 Creatine Kinase 317 U/L (39-308) H 04/22/23 05:09 Total Protein 5.4 g/dL (6.6-8.7) L 04/24/23 05:20 Albumin 3.1 g/dL (3.5-5.2) L 04/24/23 05:20 Globulin 2.3 g/dL (1.3-4.6) 04/24/23 05:20 Triglycerides 81 mg/dL (0-150) 04/22/23 05:09 Cholesterol 127 mg/dL (0-200) 04/22/23 05:09 LDL Cholesterol, Calc 77 mg/dL (50-129) 04/22/23 05:09 HDL Cholesterol 34 mg/dL (60-100) L 04/22/23 05:09 LDL/HDL Ratio 2.26 RATIO (0.00-3.22) 04/22/23 05:09 Cholesterol/HDL Ratio 3.74 mg/dL (1.0-5.00) 04/22/23 05:09 Urine Color [place] (Yellow) 04/21/23 16:23 Urine Appearance Clear (CLEAR) 04/21/23 16:23 Urine pH 5 (5-7) 04/21/23 16:23 Ur Specific [place] 1.010 (1.005-1.030) 04/21/23 16:23 Urine Protein Trace (Negative) 04/21/23 16:23 Urine Glucose (UA) Norm (Normal) 04/21/23 16:23 Urine Ketones 2+ (Negative) H 04/21/23 16:23 Urine Blood 3+ (Negative) H 04/21/23 16:23 Urine Nitrate Negative (Negative) 04/21/23 16:23 Urine Bilirubin 1+ (Negative) H 04/21/23 16:23 Urine Urobilinogen 1 mg/dL (Negative) H 04/21/23 16:23 Ur Leukocyte Esterase 2+ (Negative) H 04/21/23 16:23 Urine RBC 15-25 /hpf (0-2) H 04/21/23 16:23 Urine WBC 25-40 /hpf (0-5) H 04/21/23 16:23 Ur Squamous Epith Cells None /hpf (0-5) 04/21/23 16:23 Amorphous Sediment Not Reportable 04/21/23 16:23 Urine Bacteria 1+ /hpf (NONE) H 04/21/23 16:23 Urine Opiates Screen Negative ng/mL (Negative) 04/21/23 16:23 Ur Barbiturates Screen Negative ng/mL (Negative) 04/21/23 16:23 Ur Phencyclidine Scrn Negative ng/mL (Negative) 04/21/23 16:23 Ur Amphetamines Screen Negative ng/mL (Negative) 04/21/23 16:23 U Benzodiazepines Scrn Negative ng/mL (Negative) 04/21/23 16:23 Urine Cocaine Screen Negative ng/mL (Negative) 04/21/23 16:23 U Marijuana (THC) Screen Negative ng/mL (Negative) 04/21/23 16:23 SARS-CoV-2 Ag (Rapid) negative (Negative) 04/23/23 16:14 Vitals Last Vital Signs Temp 98.3 F 04/24/23 07:19 Pulse 76 04/24/23 07:29 Resp 16 04/24/23 07:29 BP 128/80 04/24/23 07:19 Pulse Ox 95 04/24/23 07:29 O2 Del Method Room Air 04/24/23 07:29 Discharge Plan Discharge Patient Disposition: Xfer [facility] Condition: Stable Prescriptions: New aspirin 81 mg Tablet,Delayed Release (Dr/Ec) 81 mg PO DAILY 30 Days Qty: 30 0RF atorvastatin 40 mg Tablet 40 mg PO BEDTIME 30 Days Qty: 30 0RF nicotine 14 mg/24 hr Patch 24 Hour 1 patch transdermal Q24H 30 Days Qty: 30 0RF ipratropium-albuterol 0.5 mg-3 mg(2.5 mg base)/3 mL Solution For Nebulization 3 ml inhalation Q6H.RESP 30 Days Qty: 30 0RF budesonide 0.5 mg/2 mL Suspension For Nebulization 0.5 mg inhalation BID.RESPIRATORY 30 Days Qty: 120 0RF cefuroxime axetil 500 mg tablet 500 mg PO BID 4 Days Qty: 8 0RF Continued cyanocobalamin (vitamin B-12) 1,000 mcg/mL solution 1,000 mcg IM Q30D triamcinolone acetonide 0.1 % cream 1 applic topical BID Qty: 80 0RF pantoprazole 40 mg tablet,delayed release (DR/EC) 40 mg PO BID Nitrostat 0.4 mg Tablet, Sublingual 0.4 mg SUBLINGUAL Q5M PRN (Reason: Chest Pain) Rx Instructions: do not exceed 3 doses per episode Discontinued albuterol sulfate 90 mcg/actuation HFA aerosol inhaler 2 inh INHALATION Q4H PRN (Reason: shortness of breath or wheezing) Qty: 18 0RF budesonide-formoterol [Symbicort] 80-4.5 mcg/actuation HFA aerosol inhaler 2 inh inhalation BID Qty: 10.2 0RF Discharge Orders: Discharge Order (Routine); Ordered 04/24/23 Ordered By: Justine Thompson Referrals: [facility] [Outside] Julia Benz FNP [Primary Care Provider] - Discharge Diet: Usual diet Discharge Activity: Resume usual activity Patient Instructions: Opioid Safety Discharge Attestations Time Spent in Discharge Care*: greater than 30 min Quality Metrics Clinical Quality Measures [ Cerebrovascular Accident { Contraindication to Antithrombotic: None; antithrombotic prescribed; Contraindication to Anticoagulation: Overlap treatment not indicated; Contraindication to Statin: None; Statin prescribed;}] Coding Level of Care Code Acute Code for Chg Fwd Diagnoses Acute CVA (cerebrovascular accident) I63.9 Fall W19.XXXA COPD (chronic obstructive pulmonary disease) J44.9 Rhabdomyolysis M62.82 Infestation by bed bug B88.8 UTI (urinary tract infection) N30.01 Urinary tract infection type: acute cystitis Hematuria presence: with hematuria Hyperbilirubinemia E80.6 Smoking addiction F17.200
--- NOTE | 2023-04-24 10:25 | PC.SOCIAL ---
IMM Update pg 2 of IMM updated and reviewed w/ patient. Copy provided and Copy dated, initialed and placed in chart.
== END 2023-04-24 12:53 | disposition skilled nursing facility (03) | DRG 65 ==
LOC: ER 15:26 → MEDSURG 17:14
PROVIDERS: Admitting Provider Internal Medicine; Emergency Provider Internal Medicine; PCP Nurse Practitioner Family; Visit Provider Student in an Organized Health Care Education/Training Program
DX: I63.511 Cerebral infarction due to unspecified occlusion or stenosis of right middle cerebral artery (principal); G81.94 Hemiplegia, unspecified affecting left nondominant side; M62.82 Rhabdomyolysis; N30.01 Acute cystitis with hematuria; R29.810 Facial weakness; R47.81 Slurred speech; R29.706 NIHSS score 6; W19.XXXA Unspecified fall, initial encounter; J44.9 Chronic obstructive pulmonary disease, unspecified; B88.9 Infestation, unspecified; B96.89 Other specified bacterial agents as the cause of diseases classified elsewhere; I25.10 Atherosclerotic heart disease of native coronary artery without angina pectoris; F17.210 Nicotine dependence, cigarettes, uncomplicated; K21.9 Gastro-esophageal reflux disease without esophagitis; I10 Essential (primary) hypertension; E78.5 Hyperlipidemia, unspecified; G47.33 Obstructive sleep apnea (adult) (pediatric); G25.81 Restless legs syndrome; F41.8 Other specified anxiety disorders; Z86.711 Personal history of pulmonary embolism; Z86.718 Personal history of other venous thrombosis and embolism; Z83.2 Family history of diseases of the blood and blood-forming organs and certain disorders involving the immune mechanism
CPT/HCPCS: 36415; 36416; 70450; 70496; 70498; 71045; 80053; 80061; 80306; 81001; 82550; 82962; 83036; 85025; 85610; 85730; 87077; 87086; 87168; 87186; 87426; 92523; 92526; 92610; 93005; 94640; 96372; 96374; 96375; 97110; 97112; 97116; 97161; 97165; 97530; 97535; 99285; C8929; J0696; J1644; J1940; J7030; J7626; Q9967

== ENCOUNTER 2024-06-08 16:50 | Emergency (ER) | payer MEDICARE, MEDICAID, SELFPAY ==
[2024-06-08 17:05] VITALS: BP 135/66; PULSE 74; RESP 17; TEMP 36.4; O2SAT 98; BMI 38.6
--- NOTE | 2024-06-08 17:17 | USR_ITS ---
PROCEDURE INFORMATION: Exam: US Duplex Lower Extremity Veins, Bilateral Exam date and time: 06/08/2024 5:27 PM Age: 74 years old Clinical indication: Swelling (edema) of limb; Lower extremity, bilateral; Additional info: Leg swelling TECHNIQUE: Imaging protocol: Real-time duplex ultrasound of the bilateral extremities with 2-D bautista scale, color Doppler flow and spectral waveform analysis including responses to compression and other maneuvers (when performed) with image documentation. Complete exam focused on the lower extremity veins. COMPARISON: CT abdomen pelvis w con* [id number] 02/05/2020 10:52 AM FINDINGS: Right deep veins: Diminutive femoral and popliteal vein. The common femoral, femoral, proximal profunda femoral, popliteal, posterior tibial and peroneal veins are patent without thrombus. Normal Doppler waveforms. Normal compressibility and/or augmentation response. Left deep veins: Diminutive femoral and popliteal veins. Linear, echogenic material in the common femoral vein, likely reflecting sequelae of remote thrombus. The femoral, proximal profunda femoral, popliteal, posterior tibial and peroneal veins are patent without thrombus. Normal Doppler waveforms. Normal compressibility and/or augmentation response. Superficial veins: Greater saphenous veins at the saphenofemoral junctions are patent bilaterally without thrombus. Soft tissues: Unremarkable. US/[place] [id number] IMPRESSION: Linear, echogenic material in the left common femoral vein, likely reflecting sequelae of remote thrombus. No sonographic evidence of acute deep venous thrombosis.
--- NOTE | 2024-06-08 17:18 | XRR_ITS ---
PROCEDURE INFORMATION: Exam: XR Chest Exam date and time: 06/08/2024 5:53 PM Age: 74 years old Clinical indication: Dyspnea/cough TECHNIQUE: Imaging protocol: Radiologic exam of the chest. Views: 1 view. COMPARISON: CR XR chest 1V portable [id number] 04/21/2023 1:41 PM FINDINGS: Lungs: There are extensive pleural-based calcifications along the right hemithorax. No definite lung markings are seen lateral to the pleural-based calcifications raising concern for a small pneumothorax. There are pulmonary parenchymal calcifications consistent with remote granulomatous organism exposure. Pleural spaces: Blunting of the costophrenic angles. This appears similar to the prior study and may represent pleural thickening and/or scarring. Small pleural effusions cannot be excluded. Blunting of the costophrenic angles. This appears similar to the prior study and may represent pleural thickening and/or scarring. Small pleural effusions cannot be excluded. Heart/Mediastinum: Heart size not optimally evaluated with a single AP view of the chest. Vasculature: There is calcified plaque in the aortic knob. Bones/joints: Unremarkable. XR/XR chest 1V portable [id number] IMPRESSION: 1. There are extensive pleural-based calcifications along the right hemithorax. No definite lung markings are seen lateral to the pleural-based calcifications raising concern for a small pneumothorax. This is not optimally evaluated secondary to the adjacent calcifications. Consider CT scan of the thorax for further evaluation if clinically warranted. 2. There are pulmonary parenchymal calcifications consistent with remote granulomatous organism exposure. 3. There is calcified plaque in the aortic knob.
--- NOTE | 2024-06-08 17:22 | ED_ITS ---
Documented by User: Raza Gonzalez DO 06/09/24 08:07 HPI - Extremity Problem 2 General: Chief complaint: Extremity Problem,Nontraumatic Stated complaint: ana edema Time Seen by Provider: 06/08/24 16:58 History of Present Illness: 74-year-old male presents emergency room complaining of bilateral lower extremity edema and been going on for a week he was at the group home. He is not currently on any diuretics. He denies chest pain or abdominal pain. He does have a history of pulmonary embolism listed in his past medical history as well as DVT. He is not currently on any anticoagulation. Associated symptoms: Deny chest pain, fever(s) or rash Related Data Home Medications Medication Instructions Recorded Confirmed cyanocobalamin (vitamin B-12) 1,000 mcg IM Q30D 04/08/23 04/21/23 1,000 mcg/mL injection solution nitroglycerin 0.4 mg sublingual 0.4 mg sublingual Q5M PRN Chest 04/21/23 04/21/23 tablet (Nitrostat) Pain pantoprazole 40 mg tablet,delayed 40 mg PO BID 04/21/23 04/21/23 release Previous Rx's Medication Instructions Recorded triamcinolone acetonide 0.1 % 1 applic topical BID #80 grams 04/08/23 topical cream furosemide 20 mg tablet (Lasix) 20 mg PO DAILY #5 tabs 06/08/24 Allergies Allergy/AdvReac Type Severity Reaction Status Date / Time haloperidol AdvReac Intermediate Made Verified 04/21/23 14:20 nervous. Couldn't sit still. Review of Systems 2 Const: Denies: fever(s) or chills Card: Denies: chest pain Resp: Denies: dyspnea GI: Denies: abdominal pain : Denies: dysuria, urinary frequency or urinary urgency Musc: Denies: neck pain or back pain Skin/Breast: Denies: rash PFSH ED 2 PFSH: Medical History Alcohol abuse Anticoagulant long-term use CAD (coronary artery disease) Constipation COPD (chronic obstructive pulmonary disease) Delusional disorder Depression with anxiety Family history of factor V Leiden mutation Frequent urinary tract infections Frequent urinary tract infections GERD (gastroesophageal reflux disease) High risk medication use History of GI bleed Hx of deep venous thrombosis Hx pulmonary embolism Hyperlipidemia Hypertension Inflammatory arthritis Ocular rosacea KIANA (obstructive sleep apnea) Restless leg syndrome Undifferentiated connective tissue disease Surgical History History of colonoscopy 2020 History of esophagogastroduodenoscopy (EGD) (02/28/22) Hx of arthroscopy of shoulder Family History Father CAD (coronary artery disease) Other Hyperlipidemia Hypertension Rheumatoid arthritis Stroke Denies family history of Diabetes Lupus Chronic kidney disease (CKD) Anesthesia complication Bleeding disorder Cancer Social History Smoking and tobacco/nicotine status: current every day tobacco/nicotine user cigarettes Packs smoked per day: 0.50 Years cigarettes smoked: 50 Quit status (tobacco/nicotine): has tried quititng Number of times tried to quit tobacco: 10 Second hand smoke exposure: Yes Alcohol intake: former Year of sobriety/quit date alcohol: 2016 Lives independently: Yes Household members: spouse Marital status: service: No Current occupational status: retired Current gender identity: Male Physical Exam 2 Const: COMMON NORMALS: no acute distress GENERAL APPEARANCE: cooperative and comfortable ORIENTATION/CONSCIOUSNESS: Yes awake, Yes oriented to person, Yes oriented to place and Yes oriented to time HENMT: COMMON NORMALS: normocephalic, atraumatic and hearing grossly normal bilaterally HEAD & SCALP: normocephalic and atraumatic Resp: COMMON NORMALS: normal respiratory effort, No retractions, No use of accessory muscles and clear to auscultation bilaterally AUSCULTATION: clear to auscultation bilaterally Cardio: COMMON NORMALS: regular rate, regular rhythm and No murmurs present (Cardio) RATE: regular rate RHYTHM: regular rhythm GI: COMMON NORMALS: Soft to palpation and No hepatosplenomegaly present A USCULTATION: Yes normoactive bowel sounds PALPATION: Yes Soft to palpation, No Tenderness to palpation present (GI), No Guarding due to palpation present (GI) and Yes No hepatosplenomegaly present Extremity: COMMON NORMALS: normal to inspection, capillary refill normal, no clubbing, cyanosis or edema, no calf tenderness and no pedal edema Neuro: SENSORIUM/ORIENTATION: Yes oriented to person, Yes oriented to place and Yes oriented to time Skin: COMMON NORMALS: no rashes or lesions noted GENERAL SKIN EXAM: no rashes or lesions noted Course 2 Vital Signs: Vital signs: Vital Signs Temperature 97.6 F 06/08/24 17:05 Pulse Rate 88 06/09/24 00:28 Respiratory Rate 18 06/09/24 00:28 Blood Pressure 122/89 06/09/24 00:28 Pulse Oximetry 96 06/09/24 00:28 Oxygen Delivery Me thod Room Air 06/08/24 18:30 Oxygen Flow Rate 3 06/08/24 17:05 MDM - Extremity (Nontraumatic) Medical Decision Making Care signed out to Dr. Griffin at change of shift. See final notes for diagnosis and disposition. Patient had lab work and imaging included venous duplex, chest x-ray and chest CT scan all of which was essentially negative. Patient was given 20 mg of IV Lasix here once. Patient be discharged home on 20 mg IV Lasix daily for the next 5 days. Lab Data 06/08/24 18:25 06/08/24 18:25 Radiology Impressions Venous Duplex 06/08/24 17:17 IMPRESSION: Linear, echogenic material in the left common femoral vein, likely reflecting sequelae of remote thrombus. No sonographic evidence of acute deep venous thrombosis. Chest X-Ray 06/08/24 17:18 IMPRESSION: 1. There are extensive pleural-based calcifications along the right hemithorax. No definite lung markings are seen lateral to the pleural-based calcifications raising concern for a small pneumothorax. This is not optimally evaluated secondary to the adjacent calcifications. Consider CT scan of the thorax for further evaluation if clinically warranted. 2. There are pulmonary parenchymal calcifications consistent with remote granulomatous organism exposure. 3. There is calcified plaque in the aortic knob. Chest CT 06/08/24 19:42 IMPRESSION: 1. Limited noncontrast examination without CT evidence of acute intrathoracic pathology. No pneumothorax. 2. Additional findings, as above. COMMENTS: Consistent with the [employer]'s Incidental Findings Committee white paper (J Am Suhas Radiol 2018): Any incidental renal lesion less than 1 cm or classified as too small to characterize, or any incidental cystic renal lesion characterized as simple-appearing, is likely benign. No follow-up imaging is recommended for these lesions per consensus recommendations based on imaging criteria. Laboratory Results WBC 7.88 10^3/uL (3.29-11.43) 06/08/24 18: RBC 3.98 10^6/uL (3.85-5.65) 06/08/24 18: Hgb 11.40 g/dL (11.27-16.99) 06/08/24 18: Hct 37.9 % (37-53) 06/08/24 18: MCV 95.2 fl (82-101) 06/08/24 18: MCH 28.6 pg (27-33) 06/08/24 18: MCHC 30.1 g/dL (30-55) 06/08/24 18: RDW 16.3 % (12.1-15.1) H 06/08/24 18: Plt Count 154 10^3/cmm (157-399) L 06/08/24 18: MPV 10.6 fL (7.4-10.4) H 06/08/24 18: Neut % (Auto) 34.1 % 06/08/24 18: Lymph % (Auto) 52.4 % 06/08/24 18: Sweet [place] % (Auto) 11.4 % 06/08/24 18: Eos % (Auto) 1.9 % 06/08/24: Baso % (Auto) 0.1 % 06/08/24: Neut # (Auto) 2.68 10^3/uL (1.8-7.7) 06/08/24 18: Lymph # (Auto) 4.1 10^3/uL (0.8-4.8) 06/08/24 18: [place] # (Auto) 0.9 10^3/uL (0.2-0.9) 06/08/24 18: Eos # (Auto) 0.2 10^3/uL (0.0-0.8) 06/08/24 18: Baso # (Auto) 0.0 10^3/uL (0.0-0.1) 06/08/24 18: Nucleated RBC % (auto) 0 % 06/08/24 18: Nucleated RBCs # 0.0 /100WBC 09/23/24 18:25 Sodium 142 mmol/L (136-145) 06/08/24 18:25 Potassium 4.2 mmol/L (3.5-5.1) 06/08/24 18:25 Chloride 106 mmol/L (98-107) 06/08/24 18:25 Carbon Dioxide 26 mmol/L (22-29) 06/08/24 18:25 Anion Gap 14.2 (5-19) 06/08/24 18:25 BUN 20 mg/dL (8-23) 06/08/24 18:25 Creatinine 1.1 mg/dL (0.7-1.2) 06/08/24 18:25 GFR Calculation Not Reportable 06/08/24 18:25 Glucose 123 mg/dL (65-115) H 06/08/24 18:25 Calculated Osmolality 298 mOsm/kg (285-295) H 06/08/24 18:25 Calcium 9.1 mg/dL (8.5-10.5) 06/08/24 18:25 Total Bilirubin 0.6 mg/dL (0.15-1.2) 06/08/24 18:25 AST 17 U/L (0-40) 06/08/24 18:25 ALT 18 U/L (0-41) 06/08/24 18:25 Alkaline Phosphatase 100 U/L (40-130) 06/08/24 18:25 NT-Pro-B Natriuret Pep < 36 pg/mL (0-125) 06/08/24 18:25 Total Protein 6.7 g/dL (6.6-8.7) 06/08/24 18:25 Albumin 3.8 g/dL (3.5-5.2) 06/08/24 18:25 Globulin 2.9 g/dL (1.3-4.6) 06/08/24 18:25 Discharge Plan Discharge Patient Disposition: Home Clinical Impression: Lower extremity edema Condition: Stable Prescriptions: New Lasix 20 mg tablet 20 mg PO DAILY Qty: 5 0RF No Action cyanocobalamin (vitamin B-12) 1,000 mcg/mL solution 1,000 mcg IM Q30D triamcinolone acetonide 0.1 % cream 1 applic topical BID Qty: 80 0RF pantoprazole 40 mg tablet,delayed release (DR/EC) 40 mg PO BID Nitrostat 0.4 mg Tablet, Sublingual 0.4 mg SUBLINGUAL Q5M PRN (Reason: Chest Pain) Rx Instructions: do not exceed 3 doses per episode Discharge Orders: Discharge ED (Routine); Ordered 06/08/24 Ordered By: Angus Griffin Referrals: Julia Benz FNP [Primary Care Provider] - 1 week Patient Instructions: Edema (ED) Activity Restrictions/Additional Instructions: Your evaluation ER was essentially unremarkable except for swelling in both of your legs. You have been prescribed Lasix 20 mg 1 pill daily for next 5 days to evaluate the efficacy of this medicine helping with your edema. Please take it as directed. Please follow-up with your primary care physician within next 7 days for further evaluation and treatment. Coding Level of Care Code ED Intern Product Marketing Manager for [employer] Documented by User: Angus Griffin DO 06/09/24 01:31 HPI - Extremity Problem 2 General: Chief complaint: Extremity Problem,Nontraumatic Stated complaint: ana edema Time Seen by Provider: 06/08/24 16:58 Related Data Home Medications Medication Instructions Recorded Confirmed cyanocobalamin (vitamin B-12) 1,000 mcg IM Q30D 04/08/23 04/21/23 1,000 mcg/mL injection solution nitroglycerin 0.4 mg sublingual 0.4 mg sublingual Q5M PRN Chest 04/21/23 04/21/23 tablet (Nitrostat) Pain pantoprazole 40 mg tablet,delayed 40 mg PO BID 04/21/23 04/21/23 release Previous Rx's Medication Instructions Recorded triamcinolone acetonide 0.1 % 1 applic topical BID #80 grams 04/08/23 topical cream furosemide 20 mg tablet (Lasix) 20 mg PO DAILY #5 tabs 06/08/24 Allergies Allergy/AdvReac Type Severity Reaction Status Date / Time haloperidol AdvReac Intermediate Made Verified 04/21/23 14:20 nervous. Couldn't sit still. [facility] ED 2 PFS: Medical History Alcohol abuse Anticoagulant long-term use CAD (coronary artery disease) Constipation COPD (chronic obstructive pulmonary disease) Delusional disorder Depression with anxiety Family history of factor V Leiden mutation Frequent urinary tract infections Frequent urinary tract infections GERD (gastroesophageal reflux disease) High risk medication use History of GI bleed Hx of deep venous thrombosis Hx pulmonary embolism Hyperlipidemia Hypertension Inflammatory arthritis Ocular rosacea KIANA (obstructive sleep apnea) Restless leg syndrome Undifferentiated connective tissue disease Surgical History History of colonoscopy 2019 History of esophagogastroduodenoscopy (EGD) (02/28/22) Hx of arthroscopy of shoulder Family History Father CAD (coronary artery disease) Other Hyperlipidemia Hypertension Rheumatoid arthritis Stroke Denies family history of Diabetes Lupus Chronic kidney disease (CKD) Anesthesia complication Bleeding disorder Cancer Social History Smoking and tobacco/nicotine status: current every day tobacco/nicotine user cigarettes Packs smoked per day: 0.50 Years cigarettes smoked: 50 Quit status (tobacco/nicotine): has tried quititng Number of times tried to quit tobacco: 10 Second hand smoke exposure: Yes Alcohol intake: former Year of sobriety/quit date alcohol: 2016 Lives independently: Yes Household members: spouse Marital status: service: No Current occupational status: retired Current gender identity: Male Course 2 Vital Signs: Vital signs: Vital Signs Temperature 97.6 F 06/08/24 17:05 Pulse Rate 88 06/09/24 00:28 Respiratory Rate 18 06/09/24 00:28 Blood Pressure 122/89 06/09/24 00:28 Pulse Oximetry 96 06/09/24 00:28 Oxygen Delivery Me thod Room Air 06/08/24 18:30 Oxygen Flow Rate 3 06/08/24 17:05 MDM - Extremity (Nontraumatic) Medical Decision Making Patient had lab work and imaging included venous duplex, chest x-ray and chest CT scan all of which was essentially negative. Patient was given 20 mg of IV Lasix here once. Patient be discharged home on 20 mg IV Lasix daily for the next 5 days. Lab Data 06/08/24 18:25 06/08/24 18:25 Radiology Impressions Venous Duplex 06/08/24 17:17 IMPRESSION: Linear, echogenic material in the left common femoral vein, likely reflecting sequelae of remote thrombus. No sonographic evidence of acute deep venous thrombosis. Chest X-Ray 06/08/24 17:18 IMPRESSION: 1. There are extensive pleural-based calcifications along the right hemithorax. No definite lung markings are seen lateral to the pleural-based calcifications raising concern for a small pneumothorax. This is not optimally evaluated secondary to the adjacent calcifications. Consider CT scan of the thorax for further evaluation if clinically warranted. 2. There are pulmonary parenchymal calcifications consistent with remote granulomatous organism exposure. 3. There is calcified plaque in the aortic knob. Chest CT 06/08/24 19:42 IMPRESSION: 1. Limited noncontrast examination without CT evidence of acute intrathoracic pathology. No pneumothorax. 2. Additional findings, as above. COMMENTS: Consistent with the [place] [employer]'s Incidental Findings Committee white paper (J Am Suhas Radiol 2018): Any incidental renal lesion less than 1 cm or classified as too small to characterize, or any incidental cystic renal lesion characterized as simple-appearing, is likely benign. No follow-up imaging is recommended for these lesions per consensus recommendations based on imaging criteria. Laboratory Results WBC 7.88 10^3/uL (3.29-11.43) 06/08/24 18:25 RBC 3.98 10^6/uL (3.85-5.65) 06/08/24 18:25 Hgb 11.40 g/dL (11.27-16.99) 06/08/24 18:25 Hct 37.9 % (37-53) 06/08/24 18:25 MCV 95.2 fl (82-101) 06/08/24 18:25 MCH 28.6 pg (27-33) 06/08/24 18: MCHC 30.1 g/dL (30-55) 06/08/24 18:25 RDW 16.3 % (12.1-15.1) H 06/08/24 18:25 Plt Count 154 10^3/cmm (157-399) L 06/08/24 18:25 MPV 10.6 fL (7.4-10.4) H 06/08/24 18:25 Neut % (Auto) 34.1 % 06/08/24 18:25 Lymph % (Auto) 52.4 % 06/08/24 18:25 [place] % (Auto) 11.4 % 06/08/24 18:25 Eos % (Auto) 1.9 % 06/08/24 18:25 Baso % (Auto) 0.1 % 06/08/24 18: Neut # (Auto) 2.68 10^3/uL (1.8-7.7) 06/08/24 18:25 Lymph # (Auto) 4.1 10^3/uL (0.8-4.8) 06/08/24 18:25 [place] # (Auto) 0.9 10^3/uL (0.2-0.9) 06/08/24 18:25 Eos # (Auto) 0.2 10^3/uL (0.0-0.8) 06/08/24 18:25 Baso # (Auto) 0.0 10^3/uL (0.0-0.1) 06/08/24 18:25 Nucleated RBC % (auto) 0 % 06/08/24 18: Nucleated RBCs # 0.0 /100WBC 06/08/24 18:25 Sodium 142 mmol/L (136-145) 06/08/24 18:25 Potassium 4.2 mmol/L (3.5-5.1) 06/08/24 18:25 Chloride 106 mmol/L (98-107) 06/08/24 18:25 Carbon Dioxide 26 mmol/L (22-29) 06/08/24 18:25 Anion Gap 14.2 (5-19) 06/08/24 18:25 BUN 20 mg/dL (8-23) 06/08/24 18:25 Creatinine 1.1 mg/dL (0.7-1.2) 06/08/24 18:25 GFR Calculation Not Reportable 06/08/24 18:25 Glucose 123 mg/dL (65-115) H 06/08/24 18:25 Calculated Osmolality 298 mOsm/kg (285-295) H 06/08/24 18:25 Calcium 9.1 mg/dL (8.5-10.5) 06/08/24 18:25 Total Bilirubin 0.6 mg/dL (0.15-1.2) 06/08/24 18:25 AST 17 U/L (0-40) 06/08/24 18:25 ALT 18 U/L (0-41) 06/08/24 18:25 Alkaline Phosphatase 100 U/L (40-130) 06/08/24 18:25 NT-Pro-B Natriuret Pep < 36 pg/mL (0-125) 06/08/24 18:25 Total Protein 6.7 g/dL (6.6-8.7) 06/08/24 18:25 Albumin 3.8 g/dL (3.5-5.2) 06/08/24 18:25 Globulin 2.9 g/dL (1.3-4.6) 06/08/24 18:25 All radiology interpretation(s) finalized by discharge Discharge Plan Discharge Patient Disposition: Home Clinical Impression: Lower extremity edema Condition: Stable Prescriptions: New Lasix 20 mg tablet 20 mg PO DAILY Qty: 5 0RF No Action cyanocobalamin (vitamin B-12) 1,000 mcg/mL solution 1,000 mcg IM Q30D triamcinolone acetonide 0.1 % cream 1 applic topical BID Qty: 80 0RF pantoprazole 40 mg tablet,delayed release (DR/EC) 40 mg PO BID Nitrostat 0.4 mg Tablet, Sublingual 0.4 mg SUBLINGUAL Q5M PRN (Reason: Chest Pain) Rx Instructions: do not exceed 3 doses per episode Discharge Orders: Discharge ED (Routine); Ordered 06/08/24 Ordered By: Angus Griffin Referrals: Julia Benz FNP [Primary Care Provider] - 1 week Patient Instructions: Edema (ED) Activity Restrictions/Additional Instructions: Your evaluation ER was essentially unremarkable except for swelling in both of your legs. You have been prescribed Lasix 20 mg 1 pill daily for next 5 days to evaluate the efficacy of this medicine helping with your edema. Please take it as directed. Please follow-up with your primary care physician within next 7 days for further evaluation and treatment. Coding Level of Care Code ED Intern Product Marketing Manager for Devorah Milligan
[2024-06-08 17:30] VITALS: BP 123/73; PULSE 76; O2SAT 99
[2024-06-08 18:00] VITALS: BP 122/80; PULSE 75; O2SAT 91
[2024-06-08 18:30] VITALS: BP 128/68; PULSE 90; O2SAT 96
[2024-06-08 18:42] LABS: Basophils % 0.1 %; Eosinophils # 0.2 10^3/uL (0.0-0.8); Eosinophils % 1.9 %; Hematocrit 37.9 % (37-53); Lymphocytes # 4.1 10^3/uL (0.8-4.8); Lymphocytes % 52.4 %; Mean Corpuscular HGB Conc 30.1 g/dL (30-55); Mean Corpuscular Hemoglobin 28.6 pg (27-33); Mean Corpuscular Volume 95.2 fl (82-101); Mean Platelet Volume 10.6 fL (7.4-10.4); Monocytes # 0.9 10^3/uL (0.2-0.9); Monocytes % 11.4 %; Neutrophils # 2.68 10^3/uL (1.8-7.7); Neutrophils % 34.1 %; Nucleated Red Blood Cells % 0 %; Platelet Count 154 10^3/cmm (157-399); Red Blood Count 3.98 10^6/uL (3.85-5.65); Red Cell Distribution Width 16.3 % (12.1-15.1); White Blood Count 7.88 10^3/uL (3.29-11.43)
--- NOTE | 2024-06-08 19:01 | PC.NURSE ---
Dr. Griffin said to hold Lasix until lab work is back.
[2024-06-08 19:06] LABS: Alanine Aminotransferase 18 U/L (0-41); Albumin Level 3.8 g/dL (3.5-5.2); Alkaline Phosphatase 100 U/L (40-130); Anion Gap 14.2 (5-19); Aspartate Amino Transferase 17 U/L (0-40); Blood Urea Nitrogen 20 mg/dL (8-23); Calcium 9.1 mg/dL (8.5-10.5); Carbon Dioxide 26 mmol/L (22-29); Chloride 106 mmol/L (98-107); Creatinine Clr Calc Pharmacy 80.7367; Globulin 2.9 g/dL (1.3-4.6); Glucose 123 mg/dL (65-115); Osmolality Calculated 298 mOsm/kg (285-295); Potassium 4.2 mmol/L (3.5-5.1); Sodium 142 mmol/L (136-145); Total Bilirubin 0.6 mg/dL (0.15-1.2); Total Protein 6.7 g/dL (6.6-8.7)
[2024-06-08 19:17] LABS: Slide Review Slide Review Perform
[2024-06-08 19:30] LABS: NT Pro B Type Natriuretic Pept < 36 pg/mL (0-125)
--- NOTE | 2024-06-08 19:42 | CTR_ITS ---
PROCEDURE INFORMATION: Exam: CT Chest Without Contrast; Diagnostic Exam date and time: 06/08/2024 8:31 PM Age: 74 years old Clinical indication: Other: Abn cxr; Additional info: Abnormal cxr, possible pneumothorax TECHNIQUE: Imaging protocol: Diagnostic computed tomography of the chest without contrast. Axial, coronal and sagittal reformatted images were created and reviewed. Radiation optimization: All CT scans at this facility use at least one of these dose optimization techniques: automated exposure control; mA and/or kV adjustment per patient size (includes targeted exams where dose is matched to clinical indication); or iterative reconstruction. COMPARISON: CR (CHEST, ) 06/08/2024 5:53 PM RADIATION DOSE METRICS: Total DLP (mGy-cm): 593 FINDINGS: Lungs: Mild linear/discoid stranding and groundglass, likely due to atelectasis and/or scarring. No consolidation. Pleural spaces: Extensive right-sided calcified pleural plaques. Noncalcified pleural plaques at the left lung base. No pleural effusion. No pneumothorax. Heart: Unremarkable. No cardiomegaly. No pericardial effusion. No significant coronary artery calcification. Lymph nodes: Small mediastinal lymph nodes, nonspecific in appearance. No pathologically enlarged lymph nodes. Vasculature: Mild atherosclerotic disease. No aneurysm. Diaphragm: Large hiatal hernia. Adrenal glands: Left adrenal adenoma. Kidneys: Bilateral renal cysts. Bones/joints: No acute osseous abnormality. Osteopenia. Degenerative changes. Soft tissues: Unremarkable. CT/CT chest wo con [id number] IMPRESSION: 1. Limited noncontrast examination without CT evidence of acute intrathoracic pathology. No pneumothorax. 2. Additional findings, as above. COMMENTS: Consistent with the [place] [employer]'s Incidental Findings Committee white paper (J Am Suhas Radiol 2018): Any incidental renal lesion less than 1 cm or classified as too small to characterize, or any incidental cystic renal lesion characterized as simple-appearing, is likely benign. No follow-up imaging is recommended for these lesions per consensus recommendations based on imaging criteria.
[2024-06-08] MEDS: FUROsemide 10 mg/mL SDV 2mL 20 MG IVP (20:04)
[2024-06-09 00:28] VITALS: BP 122/89; PULSE 88; RESP 18; O2SAT 96
== END 2024-06-09 00:31 | disposition home or self-care (01) ==
PROVIDERS: Emergency Provider Family Medicine; PCP Nurse Practitioner Family
DX: R60.0 Localized edema (principal); F17.210 Nicotine dependence, cigarettes, uncomplicated; I25.10 Atherosclerotic heart disease of native coronary artery without angina pectoris; J44.9 Chronic obstructive pulmonary disease, unspecified; E78.5 Hyperlipidemia, unspecified; I10 Essential (primary) hypertension
CPT/HCPCS: 71045; 71250; 80053; 83880; 85025; 93970; 96374; 99285; J1940

== ENCOUNTER 2025-04-17 09:12 | Emergency (ER) | payer MEDICARE, MEDICAID, SELFPAY ==
[2025-04-17 09:13] VITALS: BP 105/79; PULSE 87; RESP 22; TEMP 36.7; O2SAT 94; BMI 34.2
--- OUTSIDE RECORDS SUMMARY | 2025-04-17 09:16 | XMS_ITS ---
Author Organization Unknown Medications Date Medication Dosage DosageUnit StartDate StopDate StopReason Active DoseQuantity DoseUnit Dispense DispenseUnit Refills NdcCode DrugCode PharmacyId IsPrescription MappedMedication Srcstatus Custom 2023 12:00 :00 AM levofloxaci n 750 mg tablet 5.92155 0 04/23/2024 12:00:00 AM 1 5.749603 1091098 2 320 [id number] [facility] 2023 12:00 :00 AM prednisone 10 mg tablet 21.0000 00 05/12/2024 12:00:00 AM 1 21.181598 611263 01 [id number] [id number] [facility] 07/29 12:00 :00 AM bumetanide 2 mg tablet 17.0000 00 06/30/2024 12:00:00 AM 1 17.895927 [id number] 13 001 [id number] [facility] 2023 12:00 :00 AM levofloxaci n 250 mg tablet 3.97751 0 04/23/2024 12:00:00 AM 1 3.555383 [id number] 2 150 [id number] [facility] 2023 12:00 :00 AM ondansetron hcl 4 mg tablet 30.0000 00 04/20/2024 12:00:00 AM 1 30.015562 [id number] 15 901 [id number] [facility] 07/29 12:00 :00 AM ipratropium 0.5 mg-albutero l 3 mg (2.5 mg base)/3 ml nebulizatio n soln 180.000 000 07/21/2024 12:00:00 AM 1 180.03146 0 [id number] [id number] [facility] 06/25 12:00 :00 AM furosemide 20 mg tablet 7.34720 0 06/09/2024 12:00:00 AM 1 7.260851 6915898 9 725 [id number] [facility] 2023 12:00 :00 AM budesonide 0.5 mg/2 ml suspension for nebulizatio n 60.0000 00 08/18/2024 12:00:00 AM 1 60.826607 [id number] 58 600 [id number] [facility] 2023 12:00 :00 AM prednisone 20 mg tablet 10.0000 04/23/2024 12:00:00 AM 1 10.127874 [id number] 01 825 [id number] [facility]
--- NOTE | 2025-04-17 09:17 | ECG_ITS ---
[facility] Test Date: 2025-04-17 Pat Name: Lei Azevedo Department: Room: Gender: Male Member Services Representative: : 1950 Requested By: Connie Hawkins Order Number: [id number] Reading MD: AUGUST SCHMITT Measurements Intervals [place] Rate: 84 P: 19 TX: 152 QRS: 42 QRSD: 85 T: 55 QT: 372 QTc: 442 Interpretive Statements SINUS RHYTHM Compared to ECG 04/21/2023 13:59:48 Ventricular premature complex(es) no longer present Electronically Signed On 04-19-2025 13:58:11 CDT by AUGUST SCHMITT [email or web address] [id number]
--- NOTE | 2025-04-17 09:17 | XRR_ITS ---
PROCEDURE INFORMATION: Exam: XR Chest Exam date and time: 04/17/2025 9:24 AM Age: 75 years old Clinical indication: SOB; Cough; Chest congestion TECHNIQUE: Imaging protocol: Radiologic exam of the chest. Views: 1 view. COMPARISON: CT chest wo con [id number] 06/08/2024 8:31 PM FINDINGS: Lungs: Unremarkable. No consolidation or mass. Pleural spaces: There is chronic pleural thickening and calcification involving the pleura laterally within the right hemithorax. Chronic pleural thickening also involves the lateral pleural surface in the left hemithorax. No pleural effusion or pneumothorax noted. Heart/Mediastinum: A hiatal hernia is noted in the lower mediastinum. Bones/joints: Unremarkable. XR/XR chest 1V portable [id number] IMPRESSION: 1. No acute findings. 2. Chronic pleural changes noted
--- NOTE | 2025-04-17 09:17 | USR_ITS ---
PROCEDURE INFORMATION: Exam: US Duplex Left Lower Extremity Veins, Limited Exam date and time: 04/17/2025 10:08 AM Age: 75 years old Clinical indication: Swelling (edema) of limb; Lower extremity, left; Additional info: Left leg swelling TECHNIQUE: Imaging protocol: Real-time duplex ultrasound of the left extremity with 2-D bautista scale, color Doppler flow and spectral waveform analysis including responses to compression and other maneuvers (when performed) with image documentation. Limited exam focused on the left lower extremity veins. COMPARISON: CT abdomen pelvis w con* [id number] 02/05/2020 10:52 AM FINDINGS: Left deep veins: There is chronic scarring involving the wall of the common femoral vein, superficial femoral vein and popliteal vein. However, I see no evidence of thrombus.. Superficial veins: Greater saphenous vein at the saphenofemoral junction is patent without thrombus. Soft tissues: Unremarkable. US/[place] [id number] IMPRESSION: 1. No evidence of deep vein thrombosis. 2. Chronic scarring of the deep vein system is noted
--- NOTE | 2025-04-17 09:25 | W.ED.EXTPRO ---
HPI - Extremity Problem General: Chief complaint: Extremity Problem,Nontraumatic Stated complaint: left leg cellulitis; sob Time Seen by Provider: 04/17/25 09:13 Source: EMS Mode of arrival: EMS History of Present Illness: 75-year-old male seen here from [facility] is concerned about having some left leg swelling patient does have CHF is on Bumex a states that his left leg seem little more swollen than the right with some erythema no fevers no pain patient has some altered mental status at baseline but no new complaints no shortness of breath or cough Associated symptoms: Deny chest pain, fever(s) or rash Related Data Home Medications ?Medication ?Instructions ?Recorded ?Confirmed cyanocobalamin (vitamin B-12) 1,000 mcg IM Q30D 04/08/23 04/21/23 1,000 mcg/mL injection solution nitroglycerin 0.4 mg sublingual 0.4 mg sublingual Q5M PRN Chest 04/21/23 04/21/23 tablet (Nitrostat) Pain pantoprazole 40 mg tablet,delayed 40 mg PO BID 04/21/23 04/21/23 release Previous Rx's ?Medication ?Instructions ?Recorded triamcinolone acetonide 0.1 % 1 applic topical BID #80 grams 04/08/23 topical cream furosemide 20 mg tablet (Lasix) 20 mg PO DAILY #5 tabs 06/08/24 Allergies Allergy/AdvReac Type Severity Reaction Status Date / Time haloperidol AdvReac Intermediate Made Verified 04/17/25 09:19 nervous. Couldn't sit still. Review of Systems Const: Denies: fever(s), chills, body aches or change in appetite Eyes: Denies: blurry vision or eye discomfort ENMT: Denies: throat pain or dental pain Card: Denies: chest pain Resp: Denies: dyspnea GI: Denies: abdominal pain, nausea, vomiting or diarrhea Musc: Reports: extremity swelling; Denies: neck pain or back pain Skin/Breast: Denies: rash PFSH ED PFSH: Medical History Undifferentiated connective tissue disease High risk medication use Delusional disorder Inflammatory arthritis Ocular rosacea Frequent urinary tract infections Depression with anxiety GERD (gastroesophageal reflux disease) Constipation Hx pulmonary embolism Frequent urinary tract infections Family history of factor V Leiden mutation Restless leg syndrome Hx of deep venous thrombosis History of GI bleed KIANA (obstructive sleep apnea) Alcohol abuse CAD (coronary artery disease) COPD (chronic obstructive pulmonary disease) Hyperlipidemia Hypertension Anticoagulant long-term use Surgical History History of colonoscopy 2019 Hx of arthroscopy of shoulder History of esophagogastroduodenoscopy (EGD) (02/28/22) Family History Father CAD (coronary artery disease) Other Hyperlipidemia Hypertension Rheumatoid arthritis Stroke Denies family history of Diabetes Lupus Chronic kidney disease (CKD) Anesthesia complication Bleeding disorder Cancer Social History Smoking and tobacco/nicotine status: current every day tobacco/nicotine user cigarettes Packs smoked per day: 0.50 Years cigarettes smoked: 50 Quit status (tobacco/nicotine): has tried quititng Number of times tried to quit tobacco: 10 Second hand smoke exposure: Yes Alcohol intake: former Year of sobriety/quit date alcohol: 2016 Lives independently: Yes Household members: spouse Marital status: service: No Current occupational status: retired Current gender identity: Male Physical Exam Const: COMMON NORMALS: no acute distress and healthy appearing HENMT: COMMON NORMALS: normocephalic and atraumatic HEAD & SCALP: normocephalic and atraumatic Eye: COMMON NORMALS: conjunctivae normal CONJUNCTIVA: Yes conjunctivae normal Neck/C-Spine: COMMON NORMALS: full ROM and supple Chest: COMMONS NORMALS: normal inspection of the chest Resp: COMMON NORMALS: normal respiratory effort, No retractions, No use of accessory muscles and clear to auscultation bilaterally AUSCULTATION: clear to auscultation bilaterally Cardio: COMMON NORMALS: regular rate, regular rhythm and No murmurs present (Cardio) RATE: regular rate RHYTHM: regular rhythm GI: COMMON NORMALS: Normal to inspection, nondistended, normoactive bowel sounds present, Soft to palpation, non-tender and no masses PALPATION: Yes Soft to palpation Extremity: COMMON NORMALS: full ROM NARRATIVE EXTREMITY EXAM: 2+ edema to bilateral lower extremities Neuro: COMMON NORMALS: moves all extremities and no focal motor deficits Psych: COMMON NORMALS: mental status grossly normal, Normal thought process present and cooperative THOUGHT PROCESS: Normal thought process present Skin: COMMON NORMALS: no rashes or lesions noted and no wounds GENERAL SKIN EXAM: no rashes or lesions noted Course Vital Signs: Vital signs: Vital Signs Temperature 98.0 F 04/17/25 09:13 Pulse Rate 82 04/17/25 10:00 Respiratory Rate 18 04/17/25 10:00 Blood Pressure 119/68 04/17/25 10:00 Pulse Oximetry 97 04/17/25 10:00 Oxygen Delivery Me thod Room Air 04/17/25 09:13 MDM - Extremity (Nontraumatic) Medical Decision Making Patient presents here with lower extremity edema he has no signs of cellulitis no signs of DVT he is stable for discharge back to [facility]. Medical Records I reviewed the patient's medical records. Lab Data I reviewed the patient's lab results. 04/17/25 09:41 04/17/25 09:41 Radiology Impressions Chest X-Ray 04/17/25 09:17 IMPRESSION: 1. No acute findings. 2. Chronic pleural changes noted Venous Duplex 04/17/25 09:17 IMPRESSION: 1. No evidence of deep vein thrombosis. 2. Chronic scarring of the deep vein system is noted Laboratory Results WBC 8.39 10^3/uL (3.29-11.43) 04/17/25 09:41 RBC 3.52 10^6/uL (3.85-5.65) L 04/17/25 09:41 Hgb 10.70 g/dL (11.27-16.99) L 04/17/25 09:41 Hct 35.3 % (37-53) L 04/17/25 09:41 MCV 100.3 fl (82-101) 04/17/25 09:41 MCH 30.4 pg (27-33) 04/17/25 09:41 MCHC 30.3 g/dL (30-55) 04/17/25 09:41 RDW 15.7 % (12.1-15.1) H 04/17/25 09:41 Plt Count 152 10^3/cmm (157-399) L 04/17/25 09:41 MPV 9.3 fL (7.4-10.4) 04/17/25 09:41 Neut % (Auto) 53.2 % 04/17/25 09:41 Lymph % (Auto) 36.2 % 04/17/25 09:41 [place] % (Auto) 9.1 % 04/17/25 09:41 Eos % (Auto) 1.3 % 04/17/25 09:41 Baso % (Auto) 0.0 % 04/17/25 09:41 Neut # (Auto) 4.46 10^3/uL (1.8-7.7) 04/17/25 09:41 Lymph # (Auto) 3.0 10^3/uL (0.8-4.8) 04/17/25 09:41 [place] # (Auto) 0.8 10^3/uL (0.2-0.9) 04/17/25 09:41 Eos # (Auto) 0.1 10^3/uL (0.0-0.8) 04/17/25 09:41 Baso # (Auto) 0.0 10^3/uL (0.0-0.1) 04/17/25 09:41 Nucleated RBC % (auto) 0 % 04/17/25 09:41 Nucleated RBCs # 0.0 /100WBC 04/17/25 09:41 Sodium 144 mmol/L (136-145) 04/17/25 09:41 Potassium 3.5 mmol/L (3.5-5.1) 04/17/25 09:41 Chloride 102 mmol/L (98-107) 04/17/25 09:41 Carbon Dioxide 31 mmol/L (22-29) H 04/17/25 09:41 Anion Gap 14.5 (5-19) 04/17/25 09:41 BUN 13 mg/dL (8-23) 04/17/25 09:41 Creatinine 1.0 mg/dL (0.7-1.2) 04/17/25 09:41 GFR Calculation Not Reportable 04/17/25 09:41 Glucose 141 mg/dL (65-115) H 04/17/25 09:41 Calculated Osmolality 300 mOsm/kg (285-295) H 04/17/25 09:41 Calcium 9.2 mg/dL (8.5-10.5) 04/17/25 09:41 Total Bilirubin 1.1 mg/dL (0.15-1.2) 04/17/25 09:41 AST 44 U/L (0-40) H 04/17/25 09:41 ALT 51 U/L (0-41) H 04/17/25 09:41 Alkaline Phosphatase 171 U/L (40-130) H 04/17/25 09:41 NT-Pro-B Natriuret Pep 60 pg/mL (0-125) 04/17/25 09:41 Total Protein 7.0 g/dL (6.6-8.7) 04/17/25 09:41 Albumin 3.8 g/dL (3.5-5.2) 04/17/25 09:41 Globulin 3.2 g/dL (1.3-4.6) 04/17/25 09:41 All radiology interpretation(s) finalized by discharge EKG Data EKG 1: I personally reviewed and interpreted this EKG as follows: EKG interpretation date: 04/17/25 EKG interpretation time: 09:21 Interpretation: nsr hr [address] elevation qrs 85 qtc 414 Discharge Plan Discharge Patient Disposition: Home Clinical Impression: Lower extremity edema Condition: Stable Prescriptions: No Action Lasix 20 mg tablet 20 mg PO DAILY Qty: 5 0RF cyanocobalamin (vitamin B-12) 1,000 mcg/mL solution 1,000 mcg IM Q30D triamcinolone acetonide 0.1 % cream 1 applic topical BID Qty: 80 0RF pantoprazole 40 mg tablet,delayed release (DR/EC) 40 mg PO BID Nitrostat 0.4 mg Tablet, Sublingual 0.4 mg SUBLINGUAL Q5M PRN (Reason: Chest Pain) Rx Instructions: do not exceed 3 doses per episode Discharge Orders: Discharge ED (Routine); Ordered 04/17/25 Ordered By: Connie Hawkins Referrals: Julia Benz FNP [Primary Care Provider, Family Practice] Discharge Diet: Advance as tolerated Discharge Activity: Resume usual activity Patient Instructions: Edema (ED) Print Language: Yoruba Coding Level of Care Code ED Certified Medical Technician for Devorah Milligan
[2025-04-17] MEDS: FUROsemide 10 mg/mL SDV 10mL 60 MG IVP (09:44)
[2025-04-17 09:46] LABS: Hematocrit 35.3 % (37-53); Hemoglobin 10.70 g/dL (11.27-16.99); Mean Corpuscular HGB Conc 30.3 g/dL (30-55); Mean Corpuscular Hemoglobin 30.4 pg (27-33); Mean Corpuscular Volume 100.3 fl (82-101); Nucleated Red Blood Cells % 0 %; Platelet Count 152 10^3/cmm (157-399); Red Blood Count 3.52 10^6/uL (3.85-5.65); White Blood Count 8.39 10^3/uL (3.29-11.43)
[2025-04-17 10:00] VITALS: BP 119/68; PULSE 82; RESP 18; O2SAT 97
[2025-04-17 10:14] LABS: Alanine Aminotransferase 51 U/L (0-41); Albumin Level 3.8 g/dL (3.5-5.2); Alkaline Phosphatase 171 U/L (40-130); Anion Gap 14.5 (5-19); Aspartate Amino Transferase 44 U/L (0-40); Blood Urea Nitrogen 13 mg/dL (8-23); Calcium 9.2 mg/dL (8.5-10.5); Carbon Dioxide 31 mmol/L (22-29); Chloride 102 mmol/L (98-107); Creatinine Clr Calc Pharmacy 82.1627; Globulin 3.2 g/dL (1.3-4.6); Glucose 141 mg/dL (65-115); NT Pro B Type Natriuretic Pept 60 pg/mL (0-125); Osmolality Calculated 300 mOsm/kg (285-295); Potassium 3.5 mmol/L (3.5-5.1); Sodium 144 mmol/L (136-145); Total Protein 7.0 g/dL (6.6-8.7)
[2025-04-17 10:30] VITALS: BP 109/67; PULSE 80; RESP 17; O2SAT 95
[2025-04-17 10:55] VITALS: BP 109/67; PULSE 79; RESP 14; O2SAT 98
[2025-04-17 11:30] VITALS: BP 117/71; PULSE 80; RESP 17; O2SAT 97
[2025-04-17 11:53] VITALS: BP 117/71; PULSE 85; O2SAT 97
== END 2025-04-17 11:54 | disposition home or self-care (01) ==
PROVIDERS: Emergency Provider Emergency Medicine; PCP Nurse Practitioner Family
DX: R60.0 Localized edema (principal); F17.210 Nicotine dependence, cigarettes, uncomplicated; I25.10 Atherosclerotic heart disease of native coronary artery without angina pectoris; J44.9 Chronic obstructive pulmonary disease, unspecified; E78.5 Hyperlipidemia, unspecified; I10 Essential (primary) hypertension
CPT/HCPCS: 36415; 71045; 80053; 83880; 85025; 93005; 93971; 96374; 99285; J1938

== ENCOUNTER → 2025-06-16 10:49 | Outpatient (BNVA) | payer MEDICARE, MEDICAID, SELFPAY | PROVIDERS: Visit Provider Podiatrist Foot & Ankle Surgery | DX: I73.9 Peripheral vascular disease, unspecified (principal); L60.3 Nail dystrophy; L60.8 Other nail disorders | CPT/HCPCS: 11721; 99203 ==

== ENCOUNTER 2025-07-27 21:47 | Inpatient (IN) | payer MEDICARE, MEDICAID, SELFPAY ==
[2025-07-27] VITALS (7 sets, daily range): BP systolic 112–130; BP diastolic 52–81; PULSE 126–132; RESP 24–26; TEMP 37.4; O2SAT 93–100
--- NOTE | 2025-07-27 21:51 | W.ED.GENADLT ---
HPI - General Adult General: Chief complaint: Shortness of Breath/Dyspnea Stated complaint: SOB Time Seen by Provider: 07/27/25 21:48 History of Present Illness: 75yo M with past medical history of DVT/PE, COPD, hyperlipidemia, high blood pressure presents from assisted living facility for shortness of breath. Patient states he got up to go to the restroom and started feeling short of breath. Patient states he does not usually use oxygen at baseline though assisted-living facility reported that he does. Patient has not had a fever but he is coughing. He has not had hemoptysis or productive cough. He is denying chest pain. No abdominal pain, nausea, vomiting, diarrhea or dysuria. Patient has some chronic lower extremity edema but no asymmetry. I do not see anticoagulation in patient's medication list. He has not fallen or injured himself. Patient received breathing treatments and nebulized dexamethasone and route. Related Data Home Medications ?Medication ?Instructions ?Recorded ?Confirmed cyanocobalamin (vitamin B-12) 1,000 mcg IM Q30D 04/08/23 06/16/25 1,000 mcg/mL injection solution nitroglycerin 0.4 mg sublingual 0.4 mg sublingual Q5M PRN Chest 04/21/23 06/16/25 tablet (Nitrostat) Pain pantoprazole 40 mg tablet,delayed 40 mg PO BID 04/21/23 06/16/25 release Previous Rx's ?Medication ?Instructions ?Recorded triamcinolone acetonide 0.1 % 1 applic topical BID #80 grams 04/08/23 topical cream furosemide 20 mg tablet (Lasix) 20 mg PO DAILY #5 tabs 06/08/24 Allergies Allergy/AdvReac Type Severity Reaction Status Date / Time haloperidol AdvReac Intermediate Made Verified 06/16/25 10:52 nervous. Couldn't sit still. [facility] ED PFS: Medical History (Updated 07/28/25 @ 01:23 by Cece Wheat MD) Undifferentiated connective tissue disease High risk medication use Delusional disorder Inflammatory arthritis Ocular rosacea Frequent urinary tract infections Depression with anxiety GERD (gastroesophageal reflux disease) Constipation Hx pulmonary embolism Frequent urinary tract infections Family history of factor V Leiden mutation Restless leg syndrome Hx of deep venous thrombosis History of GI bleed KIANA (obstructive sleep apnea) Alcohol abuse CAD (coronary artery disease) COPD (chronic obstructive pulmonary disease) Hyperlipidemia Hypertension Anticoagulant long-term use Surgical History History of colonoscopy 2020 Hx of arthroscopy of shoulder History of esophagogastroduodenoscopy (EGD) (02/28/22) Family History Father CAD (coronary artery disease) Other Hyperlipidemia Hypertension Rheumatoid arthritis Stroke Denies family history of Diabetes Lupus Chronic kidney disease (CKD) Anesthesia complication Bleeding disorder Cancer Social History Smoking and tobacco/nicotine status: former use of tobacco/nicotine Quit status (tobacco/nicotine): has tried quititng Number of times tried to quit tobacco: 10 Second hand smoke exposure: Yes Alcohol intake: former Year of sobriety/quit date alcohol: 2016 Lives independently: Yes Household members: spouse Marital status: service: No Current occupational status: retired Current gender identity: Male Physical Exam Narrative: EXAM NARRATIVE: Vital signs were reviewed. Patient is alert and able to provide some history though he does not answer all questions appropriately. Patient has increased work of breathing though I do not appreciate any wheezing or crackles. Patient has symmetric breath sounds. He is tachypneic. Patient has clear lungs b/l, no rhonchi, wheezing or crackles. No hypotension. +Tachycardia. Abdomen is soft, nondistended and nontender. Patient is moving all extremities, no deformity or gross injury. No lower extremity edema or asymmetry. Course Vital Signs: Vital signs: Vital Signs Temperature 99.3 F 07/27/25 21:48 Pulse Rate 115 H 07/28/25 00:59 Respiratory Rate 24 H 07/27/25 23:09 Blood Pressure 114/72 07/28/25 00:30 Pulse Oximetry 95 07/28/25 00:59 Oxygen Delivery Me thod BiPAP 07/28/25 00:30 Oxygen Flow Rate 6 07/27/25 22:12 Fraction of Inspir ed Oxygen 45 07/28/25 00:59 [facility] - General Adult Medical Decision Making Patient is a 75-year-old male with history of COPD, pulmonary embolus presents with a chief complaint of relatively sudden onset of shortness of breath today. Patient has not had a fever at home, denies systemic symptoms but he is also having difficulty with breathing. History is limited. Differential diagnosis includes but is limited to, viral upper respiratory infection, pneumothorax, pneumonia, COPD/asthma exacerbation, pulmonary embolus, ACS, CHF, cardiogenic shock, sepsis, other. On exam, patient is in acute respiratory distress and was promptly placed on BiPAP. Patient was treated with IV fluids, IV ceftriaxone, IV azithromycin and IV Versed for comfort/anxiety. He was evaluated with CBC, CMP, lactic acid, procalcitonin, troponin, BNP, ABG, EKG, chest x-ray, CT PE. Patient has an elevated white blood cell count of 19. He has mild hypokalemia. Creatinine is also mildly elevated from baseline which could indicate mild [place]. Troponin is elevated from baseline though patient did not report chest pain, EKG does not show STEMI. CT shows: IMPRESSION: 1. Chronic-appearing thrombus along the wall of the left lower lobe segmental arterial branch. 2. Airspace consolidations at the lung bases, preferentially involving the lingula and right lower lobe, consistent with multilobar pneumonia. 3. Calcified pleural plaques along the right anterior lung, correlate for history of asbestos exposure. 4. Moderate hiatal hernia. Patient required admission to ICU. Lab Data 07/27/25 23:25 07/27/25 23:25 Radiology Impressions Chest CTA 07/27/25 21:58 IMPRESSION: 1. Chronic-appearing thrombus along the wall of the left lower lobe segmental arterial branch. 2. Airspace consolidations at the lung bases, preferentially involving the lingula and right lower lobe, consistent with multilobar pneumonia. 3. Calcified pleural plaques along the right anterior lung, correlate for history of asbestos exposure. 4. Moderate hiatal hernia. Findings communicated to Cece Wahl at 11:11 p.m. Chest X-Ray 07/27/25 21:58 IMPRESSION: No acute findings. Laboratory Results WBC 19.22 10^3/uL (3.29-11.43) H 07/27/25: RBC 3.77 10^6/uL (3.85-5.65) L 07/27/25 23:25 Hgb 11.60 g/dL (11.27-16.99) 07/27/25: Hct 36.8 % (37-53) L 07/27/25: MCV 97.6 fl (82-101) 07/27/25 23: MCH 30.8 pg (27-33) 07/27/25: MCHC 31.5 g/dL (30-55) 07/27/25 23: RDW 15.1 % (12.1-15.1) 07/27/25 23: Plt Count 175 10^3/cmm (157-399) 07/27/25: MPV 10.0 fL (7.4-10.4) 07/27/25 23: Neut % (Auto) 71.0 % 07/27/25: Lymph % (Auto) 21.3 % 07/27/25: [place] % (Auto) 6.8 % 07/27/25: Eos % (Auto) 0.3 % 07/27/25: Baso % (Auto) 0.1 % 07/27/25: Neut # (Auto) 13.65 10^3/uL (1.8-7.7) H 07/27/25: Lymph # (Auto) 4.1 10^3/uL (0.8-4.8) 07/27/25 23: [place] # (Auto) 1.3 10^3/uL (0.2-0.9) H 07/27/25: Eos # (Auto) 0.1 10^3/uL (0.0-0.8) 07/27/25: Baso # (Auto) 0.0 10^3/uL (0.0-0.1) 07/27/25: Nucleated RBC % (auto) 0 % 07/27/25: Nucleated RBCs # 0.0 /100WBC 07/27/25 23:25 Specimen Type Arterial 07/27/25 22:19 Sample Site Brachial, right 07/27/25 22:19 ABG pH 7.50 (7.35-7.45) H 07/27/25 22:19 ABG pCO2 37.4 mmHg (35-45) 07/27/25 22:19 ABG pO2 70.3 mmHg (80.0-100.0) L 07/27/25 22:19 ABG HCO3 29.3 mmol/L (22-26) H 07/27/25 22:19 ABG O2 Saturation 94.2 07/27/25 22:19 ABG Base Excess 5.8 mmol/L (-2.0-2.0) H 07/27/25 22:19 Tex Test N/a 07/27/25 22:19 A-a O2 Gradient 4.2 mmHg (5-10) L 07/27/25 22:19 Hematocrit 37.4 % (42-52) L 07/27/25 22:19 Hgb O2 Saturation 92.9 % (95-100) L 07/27/25 22:19 Carboxyhemoglobin 0.4 %THgb (0.4-20.1) 07/27/25 22:19 Methemoglobin 1.0 % (0.4-1.5) 07/27/25 22:19 Total Hemoglobin 12.2 g/dL (14-18) L 07/27/25 22:19 Sodium 143.0 mmol/L (131-143) 07/27/25 22:19 Potassium 3.4 mmol/L (3.5-5.0) L 07/27/25 22:19 Glucose 138.0 mg/dL (70-115) H 07/27/25 22:19 Ionized Calcium 1.2 mmol/L (1.1-1.4) 07/27/25 22:19 O2 Delivery Device Nc 07/27/25 22:19 O2 Liters/Min 5.0 % 07/27/25 22:19 Hip Hop Artist ID [email or web address] 07/27/25 22:19 Sodium 143 mmol/L (136-145) 07/27/25 23:25 Potassium 3.3 mmol/L (3.5-5.1) L 07/27/25 23:25 Chloride 99 mmol/L (98-107) 07/27/25 23:25 Carbon Dioxide 29 mmol/L (22-29) 07/27/25 23:25 Anion Gap 18.3 (5-19) 07/27/25 23:25 BUN 22 mg/dL (8-23) 07/27/25 23:25 Creatinine 1.3 mg/dL (0.7-1.2) H 07/27/25 23:25 GFR Calculation Not Reportable 07/27/25 23:25 Glucose 140 mg/dL (65-115) H 07/27/25 23:25 Calculated Osmolality 302 mOsm/kg (285-295) H 07/27/25 23:25 Calcium 9.1 mg/dL (8.5-10.5) 07/27/25 23:25 Total Bilirubin 1.1 mg/dL (0.15-1.2) 07/27/25 23:25 AST 25 U/L (0-40) 07/27/25 23:25 ALT 31 U/L (0-41) 07/27/25 23:25 Alkaline Phosphatase 156 U/L (40-130) H 07/27/25 23:25 Troponin T Baseline 35 ng/L (0-15) H 07/27/25 23:25 NT-Pro-B Natriuret Pep 52 pg/mL (0-125) 07/27/25 23: Total Protein 6.7 g/dL (6.6-8.7) 07/27/25 23:25 Albumin 4.3 g/dL (3.5-5.2) 07/27/25 23:25 Globulin 2.4 g/dL (1.3-4.6) 07/27/25 23:25 All radiology interpretation(s) finalized by discharge EKG Data EKG 1: Computer generated interpretation: Chest CTA 07/27/25 21:58 IMPRESSION: 1. Chronic-appearing thrombus along the wall of the left lower lobe segmental arterial branch. 2. Airspace consolidations at the lung bases, preferentially involving the lingula and right lower lobe, consistent with multilobar pneumonia. 3. Calcified pleural plaques along the right anterior lung, correlate for history of asbestos exposure. 4. Moderate hiatal hernia. Findings communicated to Cece Wahl at 11:11 p.m. Chest X-Ray 07/27/25 21:58 IMPRESSION: No acute findings. Sinus tachycardia with a heart rate of 127, normal axis, normal interval, no STEMI, poor baseline due to respiratory distress. EKG 2: Interpretation: Sinus tachycardia with a heart rate of 25, normal axis, normal interval, no STEMI. Computer generated interpretation: Chest CTA 07/27/25 21:58 IMPRESSION: 1. Chronic-appearing thrombus along the wall of the left lower lobe segmental arterial branch. 2. Airspace consolidations at the lung bases, preferentially involving the lingula and right lower lobe, consistent with multilobar pneumonia. 3. Calcified pleural plaques along the right anterior lung, correlate for history of asbestos exposure. 4. Moderate hiatal hernia. Findings communicated to Cece Wahl at 11:11 p.m. Chest X-Ray 07/27/25 21:58 IMPRESSION: No acute findings. Discharge Plan Discharge Patient Disposition: Admitted As Inpatient Clinical Impression: Pneumonia, Acute hypoxemic respiratory failure, Troponin level elevated, Elevated serum creatinine, Hypokalemia Condition: Stable Coding Level of Care Code ED Home Mortgage Disclosure Act Specialist for Devorah Milligan
--- NOTE | 2025-07-27 21:58 | XRR_ITS ---
PROCEDURE INFORMATION: Exam: XR Chest Exam date and time: 07/27/2025 10:00 PM Age: 75 years old Clinical indication: Shortness of breath TECHNIQUE: Imaging protocol: Radiologic exam of the chest. Views: 1 view. COMPARISON: CR XR chest 1V portable [id number] 04/17/2025 9:24 AM FINDINGS: Lungs: Redemonstrated dense opacities of the bilateral peripheral lungs, [id number], likely representing calcified pleural plaques. No new focal airspace opacity. Pleural spaces: No pneumothorax or large pleural effusion. Heart/Mediastinum: Heart size can not be accurately assessed from this projection. Bones/joints: Unremarkable. XR/XR chest 1V portable [id number] IMPRESSION: No acute findings.
--- NOTE | 2025-07-27 21:58 | ECG_ITS ---
[facility] Test Date: 2025-07-27 Pat Name: Lei Azevedo Department: Room: Gender: Male Marketing Analytics Analyst: : 1950 Requested By: Cece Wheat Order Number: [id number] Wendy MD: William Boudreaux M.D. Measurements Intervals [place] Rate: 127 P: 1 [place]: 135 QRS: 14 QRSD: 79 T: 63 QT: 312 QTc: 454 Interpretive Statements SINUS TACHYCARDIA NONSPECIFIC ST & T-WAVE ABNORMALITY ABNORMAL RHYTHM ECG Compared to ECG 04/17/2025 09:21:56 There is no significant change Electronically Signed On 07-28-2025 20:15:32 CIGARETTE MACHINE FILLER by William Boudreaux M.D. [id number]
--- NOTE | 2025-07-27 21:58 | CTR_ITS ---
PROCEDURE INFORMATION: Exam: CTA Chest With Contrast Exam date and time: 07/28/2025 12:43 AM Age: 75 years old Clinical indication: Shortness of breath; Additional info: Shortness of breath, sudden TECHNIQUE: Imaging protocol: Computed tomographic angiography of the chest with contrast. Exam focused on the arteries. 3D rendering (Not supervised by radiologist): MIP and/or 3D reconstructed images were created by the technologist. Radiation optimization: All CT scans at this facility use at least one of these dose optimization techniques: automated exposure control; mA and/or kV adjustment per patient size (includes targeted exams where dose is matched to clinical indication); or iterative reconstruction. Contrast material: OMNI 350; Contrast volume: 100 ml; Contrast route: INTRAVENOUS (IV); COMPARISON: CT chest con [id number] 06/08/2024 8:31 PM RADIATION DOSE METRICS: Total DLP (mGy-cm): 505.75 FINDINGS: Pulmonary arteries: Normal. No pulmonary emboli. Aorta: Atherosclerotic changes of the aorta. Lungs: Airspace consolidations at the lung bases, preferentially involving the lingula and right lower lobe, consistent with multilobar pneumonia. Chronic-appearing thrombus along the wall of the left lower lobe segmental arterial branch. Pleural spaces: Calcified pleural plaques along the right anterior lung, correlate for history of asbestos exposure. Heart: Cardiomegaly. Lymph nodes: Enlarged bilateral hilar lymph nodes. Diaphragm: Moderate hiatal hernia. Liver: Hepatic steatosis. Bones/joints: Degenerative changes of the spine. Soft tissues: Unremarkable. CT/CT angio chest PE protcl [id number] IMPRESSION: 1. Chronic-appearing thrombus along the wall of the left lower lobe segmental arterial branch. 2. Airspace consolidations at the lung bases, preferentially involving the lingula and right lower lobe, consistent with multilobar pneumonia. 3. Calcified pleural plaques along the right anterior lung, correlate for history of asbestos exposure. 4. Moderate hiatal hernia. Findings communicated to Cece Wahl at 11:11 p.m.
[2025-07-27 22:30] LABS: ABG PCO2 37.4 mmHg (35-45); ABG PH Result 7.50 (7.35-7.45); Alveolar-Arterial Oxygen Gradi 4.2 mmHg (5-10); Arterial Blood Gas Hematocrit 37.4 % (42-52); Blood Gas LPM 5.0 %; Blood Gas Sample Site Brachial, right; Blood Gas Sample Type Arterial; Carboxyhemoglobin 0.4 %THgb (0.4-20.1); Glucose Level-ABG 138.0 mg/dL (70-115); HCO3 ABG 29.3 mmol/L (22-26); Ionized Calcium Level - ABG 1.2 mmol/L (1.1-1.4); Methemoglobin 1.0 % (0.4-1.5); Oxygen Saturation ABG 94.2; PO2 ABG 70.3 mmHg (80.0-100.0); Potassium Level - ABG 3.4 mmol/L (3.5-5.0); Sodium Level - ABG 143.0 mmol/L (131-143)
--- NOTE | 2025-07-27 23:07 | PC.NURSE ---
NURSE ADDRESSED CONCERNS WITH ADMIN OF 5MG OF MIDAZOLAM IVP. DR. HARVEY STATED THE MED WAS TO HELP CALM THE PT DOWN AND DECREASE THE PT RR.
[2025-07-27] MEDS: midazolam 1 mg/mL INJ 2 mL 5 MG IVP (23:10)
[2025-07-27 23:38] LABS: Hematocrit 36.8 % (37-53); Hemoglobin 11.60 g/dL (11.27-16.99); Mean Corpuscular HGB Conc 31.5 g/dL (30-55); Mean Corpuscular Hemoglobin 30.8 pg (27-33); Mean Corpuscular Volume 97.6 fl (82-101); Nucleated Red Blood Cells % 0 %; Platelet Count 175 10^3/cmm (157-399); Red Blood Count 3.77 10^6/uL (3.85-5.65); White Blood Count 19.22 10^3/uL (3.29-11.43)
[2025-07-27 23:56] LABS: Troponin(5th) Baseline 35 ng/L (0-15)
--- NOTE | 2025-07-27 23:58 | ECG_ITS ---
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 Measurements Intervals [place] Rate: 125 P: -12 [place]: 154 QRS: 5 QRSD: 83 T: -6 QT: 310 QTc: 447 Interpretive Statements SINUS TACHYCARDIA NONSPECIFIC ST & T-WAVE ABNORMALITY ABNORMAL RHYTHM ECG Compared to ECG 04/17/2025 09:21:56 NO SIGNIFICANT CHANGE Electronically Signed On 08-01-2025 16:41:04 FIELD SERVICES DIRECTOR by William Boudreaux M.D. [email or web address] [id number]
[2025-07-28] VITALS (50 sets, daily range): BP systolic 97–135; BP diastolic 57–78; PULSE 59–128; RESP 12–26; TEMP 36.4–36.8; O2SAT 91–98; BMI 34.9
[2025-07-28 00:05] LABS: Alanine Aminotransferase 31 U/L (0-41); Albumin Level 4.3 g/dL (3.5-5.2); Alkaline Phosphatase 156 U/L (40-130); Anion Gap 18.3 (5-19); Aspartate Amino Transferase 25 U/L (0-40); Blood Urea Nitrogen 22 mg/dL (8-23); Calcium 9.1 mg/dL (8.5-10.5); Carbon Dioxide 29 mmol/L (22-29); Chloride 99 mmol/L (98-107); Globulin 2.4 g/dL (1.3-4.6); Glucose 140 mg/dL (65-115); NT Pro B Type Natriuretic Pept 52 pg/mL (0-125); Osmolality Calculated 302 mOsm/kg (285-295); Potassium 3.3 mmol/L (3.5-5.1); Sodium 143 mmol/L (136-145); Total Protein 6.7 g/dL (6.6-8.7)
[2025-07-28] MEDS: iohexol 350 mg/mL 500 mL Btl (per mL) IV (00:53)
[2025-07-28 01:28] LABS: Lactic Sepsis W/Reflex 3.2 mmol/L (0.5-2.2)
[2025-07-28 01:35] LABS: Procalcitonin 0.66 ng/mL (0-0.5)
[2025-07-28 01:41] LABS: Troponin 5 2HR 32.19 ng/L (0-15)
[2025-07-28 01:42] LABS: Troponin 5 2HR Delta -2.81 ABS# (0-10)
--- NOTE | 2025-07-28 01:49 | PM.HP ---
Providers/Chief Complaint Chief Complaint: SOB History of Present Illness Lei Azevedo is a 75 year old male with a past medical history of DVT, history of pulmonary embolism not on anticoagulant therapy,, history of CVA, peripheral arterial disease, who presents [facility] for shortness of breath. Currently patient is alert to person, not to place, to time, he can follow commands, tells me that he is shortness of breath has improved with the BiPAP, he has been short of breath at his [facility] facility, short of breath with exertion, no chest pain, has complained of a cough, does have edema of his legs, no flank pain, no back pain, no dysuria Review of Systems Card: Denies: chest pain Resp: Reports: dyspnea and productive cough Medications/Allergies Home Medications ?Medication ?Instructions ?Recorded ?Confirmed ?Last Taken ?Type cyanocobalamin (vitamin B-12) 1,000 mcg IM Q30D 04/08/23 06/16/25 04/05/23 History 1,000 mcg/mL injection solution triamcinolone acetonide 0.1 % 1 applic topical BID #80 grams 04/08/23 06/16/25 Unknown Rx topical cream nitroglycerin 0.4 mg sublingual 0.4 mg sublingual Q5M PRN Chest 04/21/23 06/16/25 Unknown History tablet (Nitrostat) Pain pantoprazole 40 mg tablet,delayed 40 mg PO BID 04/21/23 06/16/25 Unknown History release furosemide 20 mg tablet (Lasix) 20 mg PO DAILY #5 tabs 06/08/24 06/16/25 Unknown Rx Allergies Allergy/AdvReac Type Severity Reaction Status Date / Time haloperidol AdvReac Intermediate Made Verified 06/16/25 10:52 nervous. Couldn't sit still. PFSH Acute PFSH: Medical History Undifferentiated connective tissue disease High risk medication use Delusional disorder Inflammatory arthritis Ocular rosacea Frequent urinary tract infections Depression with anxiety GERD (gastroesophageal reflux disease) Constipation Hx pulmonary embolism Frequent urinary tract infections Family history of factor V Leiden mutation Restless leg syndrome Hx of deep venous thrombosis History of GI bleed KIANA (obstructive sleep apnea) Alcohol abuse CAD (coronary artery disease) COPD (chronic obstructive pulmonary disease) Hyperlipidemia Hypertension Anticoagulant long-term use Surgical History History of colonoscopy 2020 Hx of arthroscopy of shoulder History of esophagogastroduodenoscopy (EGD) (02/28/22) Family History Father CAD (coronary artery disease) Other Hyperlipidemia Hypertension Rheumatoid arthritis Stroke Denies family history of Diabetes Lupus Chronic kidney disease (CKD) Anesthesia complication Bleeding disorder Cancer Social History Smoking and tobacco/nicotine status: former use of tobacco/nicotine Quit status (tobacco/nicotine): has tried quititng Number of times tried to quit tobacco: 10 Second hand smoke exposure: Yes Alcohol intake: former Year of sobriety/quit date alcohol: 2016 Lives independently: Yes Household members: spouse Marital status: service: No Current occupational status: retired Current gender identity: Male Vitals/I&O/Wt Last Vital Signs Temp 99.3 F 07/27/25 21:48 Pulse 103 H 07/28/25 01:30 Resp 24 H 07/27/25 23:09 BP 105/73 07/28/25 01:30 Pulse Ox 96 07/28/25 01:30 O2 Del Method BiPAP 07/28/25 01:30 O2 Flow Rate 6 07/27/25 22:12 FiO2 45 07/28/25 00:59 Physical Exam Const: COMMON NORMALS: no acute distress ORIENTATION/CONSCIOUSNESS: Yes awake, Yes oriented to person and Yes confused; not oriented to place and not oriented to time Eye: COMMON NORMALS: Equal, round and reactive pupils present and EOMs intact bilaterally Resp: COMMON NORMALS: normal respiratory effort, No retractions, No use of accessory muscles and clear to auscultation bilaterally AUSCULTATION: crackles and wheezes Cardio: COMMON NORMALS: regular rate, regular rhythm, S1 normal heart sound present and S2 normal heart sound present RATE: regular rate RHYTHM: regular rhythm HEART SOUNDS: S1 normal heart sound present and S2 normal heart sound present GI: COMMON NORMALS: Normal to inspection, nondistended, normoactive bowel sounds present, Soft to palpation and non-tender : COMMON NORMALS: Yes no CVA tenderness Extremity: COMMON NORMALS: no pedal edema Neuro: COMMON NORMALS: moves all extremities OTHER: Global encephalopathy Data 07/27/25 23:25 07/27/25 23:25 A&P Assessment and plan 1. Acute hypoxic respiratory failure: 2. Pneumonia: 3. COPD (chronic obstructive pulmonary disease): Plan: Acute hypoxic respiratory failure - Secondary to pneumonia -Secondary to COPD exacerbation - Features of sepsis, given elevated lactic acid, hypoxia, leukocytosis - With pulmonary embolism not on anticoagulant therapy? CT/CT angio chest PE protcl [id number] IMPRESSION: 1. Chronic-appearing thrombus along the wall of the left lower lobe segmental arterial branch. 2. Airspace consolidations at the lung bases, preferentially involving the lingula and right lower lobe, consistent with multilobar pneumonia. 3. Calcified pleural plaques along the right anterior lung, correlate for history of asbestos exposure. 4. Moderate hiatal hernia. Plan - Monitor respiratory status closely - Monitor in ICU - BiPAP therapy - Budesonide - DuoNeb - Rocephin - Azithromycin -Solu-Medrol - Heparin drip - Sputum culture - Blood culture - Respiratory viral panel - Full code - Lovenox for DVT prophylaxis History of pulmonary embolism, history of DVT not on anticoagulant therapy? - Will start heparin drip History of CVA NSTEMI, serial EKGs, start complaints, clinical monitoring Full code Lovenox for DVT prophylaxis PDMP PDMP Reviewed: Not Reviewed Attestations Medical Necessity Statement*: Patient requires hospitalization, inpatient, greater than 2 midnights for acute hypoxic respiratory failure secondary pneumonia Diagnoses Acute hypoxic respiratory failure J96.01 Pneumonia J18.9 COPD (chronic obstructive pulmonary disease) J44.9
[2025-07-28 01:53] LABS: Reflex Lactate Order REFLEX LACTIC ORDERD
[2025-07-28 02:05] LABS: NT Pro B Type Natriuretic Pept 66 pg/mL (0-125)
[2025-07-28] MEDS: cefTRIAXone 1,000 mg SDV 1000 MG IVP (02:17)
[2025-07-28 02:26] LABS: ABG PCO2 40.1 mmHg (35-45); ABG PH Result 7.47 (7.35-7.45); Alveolar-Arterial Oxygen Gradi 14.9 mmHg (5-10); Arterial Blood Gas Hematocrit 34.9 % (42-52); Blood Gas Sample Site Brachial, right; Blood Gas Sample Type Arterial; Carboxyhemoglobin < 0.3 %THgb (0.4-20.1); Glucose Level-ABG 157.0 mg/dL (70-115); HCO3 ABG 28.9 mmol/L (22-26); Ionized Calcium Level - ABG 1.2 mmol/L (1.1-1.4); Methemoglobin 1.1 % (0.4-1.5); Oxygen Saturation ABG 98.1; PO2 ABG 154.0 mmHg (80.0-100.0); PO2 FiO2 Ratio Arterial Blood 342; Potassium Level - ABG 3.4 mmol/L (3.5-5.0); Sodium Level - ABG 142.0 mmol/L (131-143)
[2025-07-28 04:27] LABS: Lactic Acid level (Lactate) 2.2 mmol/L (0.5-2.2)
[2025-07-28 04:32] LABS: Respiratory Syncytial Virus Ce NEGATIVE (Negative); SARS-CoV-2 PCR NEGATIVE (Negative)
--- NOTE | 2025-07-28 07:41 | PC.PHAR ---
Pt is a resident at [facility] 07/28/25
--- NOTE | 2025-07-28 08:28 | USCV_ITS ---
Lei Azevedo Age: 75 Gender: M : 1950 Exam Date: 07/28/2025 09:29 Ordering Phys: David Hawk MD Technologist: Exam [place] [facility] [place]: cp sob BP: 116 / 69 HR: 81 Rhythm: Sinus Technical Quality: Adequate MEASUREMENTS (Male / Female) Normal Values 2D ECHO LV Diastolic Diameter PLAX 4.2 cm 4.2 - 5.9 / 3.9 - 5.3 cm IVS Diastolic Thickness 1.4 cm 0.6 - 1.0 / 0.6 - 0.9 cm IVS Systolic Thickness 1.7 cm LVPW Diastolic Thickness 1.1 cm 0.6 - 1.0 / 0.6 - 0.9 cm LVPW Systolic Thickness 1.4 cm LVOT Diameter 2.0 cm LV Ejection Fraction 2D Teich 47.7 % LV Ejection Fraction MOD 4C 70.1 % LV Ejection Fraction MOD 2C 63.6 % LV Ejection Fraction 2C AL 65.5 % LA Diameter 3.3 cm RA Systolic Volume 4C AL 44.6 ml RA Systolic Volume 4C MOD 42.2 ml Aorta at Sinotubular Diameter 3.4 cm M-MODE LA Ao Ratio MM 1.1 AV Cusp Separation MM 3.1 cm DOPPLER AV Peak Velocity 122.0 cm/s LVOT Peak Velocity 96.0 cm/s AV Area Cont Eq vti 3.5 cm squared AV Area Cont Eq pk 2.5 cm squared MV Peak Velocity 91.0 cm/s MV Area PHT 3.7 cm squared Mitral E to A Ratio 1.0 TV Peak Velocity 181.5 cm/s TR Peak Velocity 221.0 cm/s TR Peak Gradient 19.5 mmHg TV Peak E Velocity 134.0 cm/s PV Peak Velocity 120.0 cm/s FINDINGS Left Ventricle Normal left ventricular size and systolic function, EF 60-65%. No regional wall motion abnormalities. Right Ventricle Normal in size and function Right Atrium Normal in size Left Atrium Normal in size IA Septum Grossly normal Mitral Valve Grossly normal. Trace mitral regurgitation. Aortic Valve Grossly normal. No significant stenosis. Tricuspid Valve Insufficient TR jet to calculate RVSP Pulmonic Valve Not well visualized Pericardium Normal Aorta Normal in size IVC Not well visualized CONCLUSIONS LV systolic function is normal with EF of 60-65% Trace mitral regurgitation Enzo Monge MD (Electronically Signed) Final Date: 29 July 2025 09:43 S
[2025-07-28 10:08] LABS: Hematocrit 34.8 % (37-53); Hemoglobin 10.70 g/dL (11.27-16.99); Mean Corpuscular HGB Conc 30.7 g/dL (30-55); Mean Corpuscular Hemoglobin 30.5 pg (27-33); Mean Corpuscular Volume 99.1 fl (82-101); Nucleated Red Blood Cells % 0 %; Platelet Count 165 10^3/cmm (157-399); Red Blood Count 3.51 10^6/uL (3.85-5.65); White Blood Count 22.64 10^3/uL (3.29-11.43)
[2025-07-28 10:26] LABS: Estmated Average Glucose 100; Hemoglobin A1C 5.1 % (4.0-6.0)
[2025-07-28] MEDS: pantoprazole 40 mg SDV IVP ×2 (10:30→21:00)
[2025-07-28] MEDS: heparin drip 25,000 UNIT/500 ML PREMIX 32 UNIT IV (10:32)
[2025-07-28 10:44] LABS: Alanine Aminotransferase 26 U/L (0-41); Albumin Level 3.7 g/dL (3.5-5.2); Alkaline Phosphatase 125 U/L (40-130); Aspartate Amino Transferase 23 U/L (0-40); Blood Urea Nitrogen 26 mg/dL (8-23); Calcium 8.9 mg/dL (8.5-10.5); Carbon Dioxide 26 mmol/L (22-29); Chloride 101 mmol/L (98-107); Cholesterol 113 mg/dL (0-200); Globulin 3.3 g/dL (1.3-4.6); Glucose 145 mg/dL (65-115); HDL Cholesterol 53 mg/dL (60-100); Iron 52 ug/dL (59-158); Osmolality Calculated 301 mOsm/kg (285-295); Sodium 142 mmol/L (136-145); Thyroid Stimulating Hormone 0.47 uIU/mL (0.27-4.20); Total Iron Binding Capacity 339 mcg/dl; Total Protein 7.0 g/dL (6.6-8.7); Triglycerides 62 mg/dL (0-150); Unsaturated Iron Binding 287 ug/dL (112-347); VLDL Cholestrol Calculation 12 mg/dL (0-30); Vitamin B12 234 pg/mL (232-1245)
[2025-07-28] MEDS: heparin 5,000 unit/mL INJ 1 mL IVP (10:44)
[2025-07-28 10:51] LABS: Anion Gap 18.8 (5-19); Potassium 3.8 mmol/L (3.5-5.1)
--- NOTE | 2025-07-28 11:39 | P.PN_ITS ---
Subjective 2 Subjective: Hospital course, labs appreciated. Admitted overnight. On examination laying comfortably in bed, denies any nausea, vomiting, headache. States he has been having difficulty in breathing for a long time but worsened over last 24 hours associated with cough. Denies any chest pain. Denies any nausea, vomiting. Vitals/I&O/Wt Last Vital Signs Temp 99.3 F 07/27/25 21:48 Pulse 71 07/28/25 11:32 Resp 16 07/28/25 11:32 BP 108/73 07/28/25 09:58 Pulse Ox 97 07/28/25 11:32 O2 Del Method Nasal Cannula 07/28/25 11:32 O2 Flow Rate 3 07/28/25 11:32 FiO2 45 07/28/25 00:59 07/27/25 07/28/25 07/28/25 22:59 06:59 14:59 Intake Total 2250 / 2250 Balance 2250 / 2250 Weight last 48 hrs Weight 113.58 kg Physical Exam 2 Narrative: General: No acute distress, AO x 2 to 3, on nasal cannula HEENT: PERRLA, pupils bilaterally equal and reactive Chest: Bronchial breath sounds all lung luciano with diffuse rhonchi and crackles bilaterally CVS: S1-S2 regular, no murmurs, no tachycardia, no gallops, no rubs Abdomen: Soft, nontender, no organomegaly, bowel sounds present Neuro: No focal deficits, no facial deformity, AO x3, power 5/5 in all limbs Data 07/28/25 09:45 07/28/25 09:45 A&P Assessment and plan 1. Acute hypoxic respiratory failure: 2. Pneumonia: 3. Chronic obstructive pulmonary disease, unspecified COPD type: Plan: Acute hypoxic respiratory failure - Secondary to pneumonia -Secondary to COPD exacerbation - Features of sepsis, given elevated lactic acid, hypoxia, leukocytosis - With pulmonary embolism not on anticoagulant therapy? CT/CT angio chest PE protcl [id number] IMPRESSION: 1. Chronic-appearing thrombus along the wall of the left lower lobe segmental arterial branch. 2. Airspace consolidations at the lung bases, preferentially involving the lingula and right lower lobe, consistent with multilobar pneumonia. 3. Calcified pleural plaques along the right anterior lung, correlate for history of asbestos exposure. 4. Moderate hiatal hernia. Plan - Monitor respiratory status closely - Monitor in ICU - BiPAP therapy - Budesonide - DuoNeb - Rocephin - Azithromycin -Solu-Medrol - Heparin drip - Sputum culture - Blood culture - Respiratory viral panel - Full code - Lovenox for DVT prophylaxis History of pulmonary embolism, history of DVT not on anticoagulant therapy? - Will start heparin drip History of CVA NSTEMI, serial EKGs, start complaints, clinical monitoring Plan for the day: Hypoxic respiratory failure in setting of multifocal pneumonia and COPD exacerbation. Check sputum culture, respiratory viral panel, MRSA swab. Continue with IV ceftriaxone and oral azithromycin for now. Will add vancomycin if MRSA swab positive. Follow-up blood cultures. Continue with DuoNeb 4 times daily, Pulmicort twice daily. Solu-Medrol 40 mg every 8 hourly. Will plan for aggressive weaning in next 24 hours if patient continues to improve. BiPAP as needed. Oxygen supplementation keeping saturation over 88%. Speech evaluation. Advance diet accordingly. For now continue with cardiac diet. Restart other chronic medication including Flomax and finasteride. Patient takes Bumex at home. As per last echocardiogram concern for diastolic dysfunction. Will recheck echocardiogram. Hold off on IV fluids or diuretics for now. Appreciate CTA chest. Concern for acute versus chronic PE. Continue on heparin drip for now. Will transition to Eliquis in 24 hours if remains hemodynamically stable. Full code Cardiac diet, speech evaluation Heparin drip will be sufficient for DVT prophylaxis Protonix for PUD prophylaxis PDMP PDMP Reviewed: Not Reviewed Attestations 2 Medical Necessity Statement*: Requires further hospitalization for management of hypoxic respiratory failure, altered mental status in setting of COPD exacerbation, multifocal pneumonia Diagnoses Acute hypoxic respiratory failure J96.01 Pneumonia J18.9 Laterality: bilateral Lung location: lower lobe of lung Pneumonia type: due to unspecified organism Chronic obstructive pulmonary disease, unspecified COPD type J44.9
[2025-07-28] MEDS: lidocaine 2% Urojet 20 mL TOPICAL (11:55)
[2025-07-28 14:57] LABS: Glucose Urine UA Negative (Normal); Nitrate Urine Negative (Negative); Specific Gravity, Urine 1.025 (1.005-1.030)
[2025-07-28 14:59] LABS: Add Urine Microscopic? YES
[2025-07-28 15:06] LABS: MRSA PCR OZH (swab) NOT DETECTED (Negative)
[2025-07-28 15:40] LABS: Coronavirus 229E,HKU1,NL63,OC4 Not Detected (NOT DETECT); Parainfluenza Virus Type 1 Not Detected (NOT DETECT); Parainfluenza Virus Type 2 Not Detected (NOT DETECT); Parainfluenza Virus Type 3 Not Detected (NOT DETECT); Parainfluenza Virus Type 4 Not Detected (NOT DETECT); SARS-COV-2 Not Detected (NOT DETECT)
[2025-07-28 16:59] LABS: Partial Thromboplastin Time 159.0 SECONDS (23.9-36.7)
[2025-07-28 23:50] LABS: Partial Thromboplastin Time 30.3 SECONDS (23.9-36.7)
[2025-07-29] VITALS (41 sets, daily range): BP systolic 100–135; BP diastolic 57–109; PULSE 57–104; RESP 13–23; TEMP 36.5–37.2; O2SAT 90–99
[2025-07-29] MEDS: cefTRIAXone 1,000 mg SDV 1000 MG IVP (05:08)
[2025-07-29] MEDS: methylPREDNISolone sod succ 40 mg/mL INJ IVP ×3 (05:08→21:48)
[2025-07-29 06:41] LABS: Partial Thromboplastin Time 25.9 SECONDS (23.9-36.7)
[2025-07-29 06:43] LABS: Magnesium 2.2 mg/dL (1.7-2.3)
[2025-07-29 08:27] LABS: Hematocrit 30.8 % (37-53); Hemoglobin 9.70 g/dL (11.27-16.99); Mean Corpuscular HGB Conc 31.5 g/dL (30-55); Mean Corpuscular Hemoglobin 30.5 pg (27-33); Mean Corpuscular Volume 96.9 fl (82-101); Nucleated Red Blood Cells % 0 %; Platelet Count 162 10^3/cmm (157-399); Red Blood Count 3.18 10^6/uL (3.85-5.65); White Blood Count 18.64 10^3/uL (3.29-11.43)
[2025-07-29 08:43] LABS: Alanine Aminotransferase 21 U/L (0-41); Albumin Level 3.6 g/dL (3.5-5.2); Alkaline Phosphatase 104 U/L (40-130); Anion Gap 16.6 (5-19); Aspartate Amino Transferase 20 U/L (0-40); Blood Urea Nitrogen 22 mg/dL (8-23); Calcium 9.0 mg/dL (8.5-10.5); Carbon Dioxide 26 mmol/L (22-29); Chloride 103 mmol/L (98-107); Globulin 2.5 g/dL (1.3-4.6); Glucose 111 mg/dL (65-115); Osmolality Calculated 298 mOsm/kg (285-295); Potassium 3.6 mmol/L (3.5-5.1); Sodium 142 mmol/L (136-145); Total Protein 6.1 g/dL (6.6-8.7)
[2025-07-29] MEDS: pantoprazole 40 mg SDV IVP ×2 (09:39→21:48)
[2025-07-29] MEDS: FUROsemide 10 mg/mL SDV 2mL 20 MG IVP (09:39)
--- NOTE | 2025-07-29 11:17 | PM.PN ---
Subjective Subjective: No acute events overnight. Patient has remained hemodynamically stable and afebrile. He was on BiPAP overnight. Today morning examination is down to 3 L saturating more than 95%. At his baseline mentation. Denies any nausea, vomiting, headache. Vitals/I&O/Wt Last Vital Signs Temp 98.5 F 07/29/25 08:00 Pulse 82 07/29/25 10:30 Resp 14 07/29/25 10:30 BP 126/69 07/29/25 10:30 Pulse Ox 99 07/29/25 10:30 O2 Del Method Nasal Cannula 07/29/25 10:30 O2 Flow Rate 3 07/29/25 10:30 FiO2 45 07/29/25 05:24 07/28/25 07/29/25 07/29/25 22:59 06:59 14:59 Intake Total 388 / 388 250 / 638 113.333 / 113.333 Output Total 500 / 800 Balance -112 / -412 250 / -162 113.333 / 113.333 Weight last 48 hrs Weight 117.2 kg Weight 113.58 kg Physical Exam Narrative: General: No acute distress, AO x 2 to 3, on nasal cannula HEENT: PERRLA, pupils bilaterally equal and reactive Chest: Bronchial breath sounds all lung luciano with diffuse rhonchi and crackles bilaterally CVS: S1-S2 regular, no murmurs, no tachycardia, no gallops, no rubs Abdomen: Soft, nontender, no organomegaly, bowel sounds present Neuro: No focal deficits, no facial deformity, AO x3, power 5/5 in all limbs Urinary Catheter Management: Sherwood: Cath Placed During This Visit: yes Reason for Continuing Indwelling Catheter: Accurate Measurement of Urinary Output in Critically Ill Patients Urinary Catheter Date of Insertion: 07/28/25 Urinary Catheter Time of Insertion: 12:00 Data 07/29/25 06:07 07/29/25 06:07 Micro: Microbiology 07/28/25 12:00 Bacterial Antigens - Final Urine Kidney A&P Assessment and plan 1. Acute hypoxic respiratory failure: 2. Pneumonia: 3. Chronic obstructive pulmonary disease, unspecified COPD type: Plan: Acute hypoxic respiratory failure - Secondary to pneumonia -Secondary to COPD exacerbation - Features of sepsis, given elevated lactic acid, hypoxia, leukocytosis - With pulmonary embolism not on anticoagulant therapy? CT/CT angio chest PE protcl [id number] IMPRESSION: 1. Chronic-appearing thrombus along the wall of the left lower lobe segmental arterial branch. 2. Airspace consolidations at the lung bases, preferentially involving the lingula and right lower lobe, consistent with multilobar pneumonia. 3. Calcified pleural plaques along the right anterior lung, correlate for history of asbestos exposure. 4. Moderate hiatal hernia. Plan - Monitor respiratory status closely - Monitor in ICU - BiPAP therapy - Budesonide - DuoNeb - Rocephin - Azithromycin -Solu-Medrol - Heparin drip - Sputum culture - Blood culture - Respiratory viral panel - Full code - Lovenox for DVT prophylaxis History of pulmonary embolism, history of DVT not on anticoagulant therapy? - Will start heparin drip History of CVA NSTEMI, serial EKGs, start complaints, clinical monitoring Plan for the day: Hypoxic respiratory failure in setting of multifocal pneumonia and COPD exacerbation. Follow-up sputum culture. MRSA swab negative. Respiratory viral panel negative. For now continue with IV ceftriaxone and azithromycin. Will de-escalate as per culture sensitivities. Diet as per speech evaluation. Wean Solu-Medrol 40 mg every 8 hourly. Continue DuoNeb 4 times daily, Pulmicort twice daily. Appreciate echocardiogram. Shows normal EF with trace MR. IV Lasix 20 mg one-time. Continue heparin drip for now. Will transition to Eliquis if hemoglobin remains stable. Repeat hemoglobin in AM. Discharge plan: Plan to discharge if remains hemodynamically stable and afebrile in next 24 to 48 hours. Patient might benefit with transition to SNF. Physical therapy evaluation. Case management on board. Will also request for DPOA paperwork[facility] Full [facility] Cardiac diet, speech evaluation Heparin drip will be sufficient for DVT prophylaxis Protonix for PUD prophylaxis PDMP PDMP Reviewed: Not Reviewed Attestations Medical Necessity Statement*: Requires further hospitalization for management of hypoxic respiratory failure, altered mental status in setting of COPD exacerbation, multifocal pneumonia Diagnoses Acute hypoxic respiratory failure J96.01 Pneumonia J18.9 Laterality: bilateral Lung location: lower lobe of lung Pneumonia type: due to unspecified organism Chronic obstructive pulmonary disease, unspecified COPD type J44.9
[2025-07-29 13:40] LABS: Partial Thromboplastin Time 44.1 SECONDS (23.9-36.7)
[2025-07-29] MEDS: heparin drip 25,000 UNIT/500 ML PREMIX 24 UNIT IV (16:29)
--- NOTE | 2025-07-29 17:04 | PC.NURSE ---
Report was given to med surge nurse. Patient was taken up to med surge.Patient was stable during transfer.
[2025-07-29 20:11] LABS: Partial Thromboplastin Time 62.4 SECONDS (23.9-36.7)
[2025-07-30] VITALS (9 sets, daily range): BP systolic 110–138; BP diastolic 55–75; PULSE 54–69; RESP 16–22; TEMP 36.3–37.2; O2SAT 91–96
[2025-07-30 02:02] LABS: Platelet Count 172 10^3/cmm (157-399)
[2025-07-30 02:26] LABS: Magnesium 2.4 mg/dL (1.7-2.3)
[2025-07-30 02:41] LABS: Partial Thromboplastin Time 81.6 SECONDS (23.9-36.7)
[2025-07-30] MEDS: cefTRIAXone 1,000 mg SDV 1000 MG IVP (05:04)
[2025-07-30] MEDS: methylPREDNISolone sod succ 40 mg/mL INJ IVP ×3 (05:05→21:22)
[2025-07-30 10:15] LABS: Hematocrit 31.4 % (37-53); Hemoglobin 9.50 g/dL (11.27-16.99); Mean Corpuscular HGB Conc 30.3 g/dL (30-55); Mean Corpuscular Hemoglobin 31.1 pg (27-33); Mean Corpuscular Volume 103.0 fl (82-101); Nucleated Red Blood Cells % 0 %; Platelet Count 160 10^3/cmm (157-399); Red Blood Count 3.05 10^6/uL (3.85-5.65); White Blood Count 18.57 10^3/uL (3.29-11.43)
[2025-07-30 10:27] LABS: Partial Thromboplastin Time 39.5 SECONDS (23.9-36.7)
[2025-07-30 10:33] LABS: Alanine Aminotransferase 26 U/L (0-41); Albumin Level 3.4 g/dL (3.5-5.2); Alkaline Phosphatase 97 U/L (40-130); Anion Gap 17.4 (5-19); Aspartate Amino Transferase 22 U/L (0-40); Blood Urea Nitrogen 23 mg/dL (8-23); Calcium 9.0 mg/dL (8.5-10.5); Carbon Dioxide 23 mmol/L (22-29); Chloride 103 mmol/L (98-107); Globulin 2.7 g/dL (1.3-4.6); Glucose 154 mg/dL (65-115); Osmolality Calculated 297 mOsm/kg (285-295); Potassium 3.4 mmol/L (3.5-5.1); Sodium 140 mmol/L (136-145); Total Protein 6.1 g/dL (6.6-8.7)
[2025-07-30] MEDS: pantoprazole 40 mg SDV IVP ×2 (11:01→21:34)
--- NOTE | 2025-07-30 14:00 | P.PN_ITS ---
Subjective 2 Subjective: No acute vents overnight. Patient seen sitting up in chair. Denies any nausea, vomiting, headache. Denies any chest pain. Remains on 3 L of oxygen supplementation. Hemodynamically stable. Vitals/I&O/Wt Last Vital Signs Temp 97.6 F 07/30/25 11:25 Pulse 59 L 07/30/25 11:25 Resp 17 07/30/25 11:25 BP 126/68 07/30/25 11:25 Pulse Ox 95 07/30/25 11:25 O2 Del Method Nasal Cannula 07/30/25 11:25 O2 Flow Rate 2 07/30/25 11:15 FiO2 45 07/29/25 05:24 07/29/25 07/30/25 07/30/25 22:59 06:59 14:59 Intake Total 123.634 / 366.800 208 / 710.447 0594.2 / 1547.2 Balance 123.634 / 366.800 208 / 006.241 1696.2 / 1547.2 Weight last 48 hrs Weight 117.027 kg Weight 117.2 kg Physical Exam 2 Narrative: General: No acute distress, AO x 2 to 3, on nasal cannula HEENT: PERRLA, pupils bilaterally equal and reactive Chest: Bronchial breath sounds all lung luciano with diffuse rhonchi and crackles bilaterally CVS: S1-S2 regular, no murmurs, no tachycardia, no gallops, no rubs Abdomen: Soft, nontender, no organomegaly, bowel sounds present Neuro: No focal deficits, no facial deformity, AO x3, power 5/5 in all limbs Urinary Catheter Management: Sherwood: Cath Placed During This Visit: yes Reason for Continuing Indwelling Catheter: Acute Urinary Retention or Obstruction Urinary Catheter Date of Insertion: 07/28/25 Urinary Catheter Time of Insertion: 12:00 Data 07/30/25 10:04 07/30/25 10:04 Micro: Microbiology 07/28/25 17:45 Gram Stain - Final Sputum - Expectorated Sputum Sputum Culture - Final A&P Assessment and plan 1. Acute hypoxic respiratory failure: 2. Pneumonia: 3. Chronic obstructive pulmonary disease, unspecified COPD type: Plan: Acute hypoxic respiratory failure - Secondary to pneumonia -Secondary to COPD exacerbation - Features of sepsis, given elevated lactic acid, hypoxia, leukocytosis - With pulmonary embolism not on anticoagulant therapy? CT/CT angio chest PE protcl [id number] IMPRESSION: 1. Chronic-appearing thrombus along the wall of the left lower lobe segmental arterial branch. 2. Airspace consolidations at the lung bases, preferentially involving the lingula and right lower lobe, consistent with multilobar pneumonia. 3. Calcified pleural plaques along the right anterior lung, correlate for history of asbestos exposure. 4. Moderate hiatal hernia. Plan - Monitor respiratory status closely - Monitor in ICU - BiPAP therapy - Budesonide - DuoNeb - Rocephin - Azithromycin -Solu-Medrol - Heparin drip - Sputum culture - Blood culture - Respiratory viral panel - Full code - Lovenox for DVT prophylaxis History of pulmonary embolism, history of DVT not on anticoagulant therapy? - Will start heparin drip History of CVA NSTEMI, serial EKGs, start complaints, clinical monitoring Plan for the day: Continue physical therapy. Oxygen supplementation to keep saturation over 88%. Wean Solu-Medrol 40 mg every 12 hourly. Continue with DuoNeb 4 times daily, Pulmicort twice daily. Sputum culture results appreciated. Continue with IV ceftriaxone and azithromycin for now. Continue diet as per speech evaluation for now. Discharge plan: Can plan to discharge back to SNF in next 24 hours patient remains hemodynamically stable on baseline oxygen supplementation. Med rec completed for SNF. Full code Cardiac diet, speech evaluation Heparin drip will be sufficient for DVT prophylaxis Protonix for PUD prophylaxis PDMP PDMP Reviewed: Not Reviewed Attestations 2 Medical Necessity Statement*: Requires further hospitalization for management of acute hypoxic respiratory failure in setting of COPD exacerbation, aspiration pneumonia Diagnoses Acute hypoxic respiratory failure J96.01 Pneumonia J18.9 Laterality: bilateral Lung location: lower lobe of lung Pneumonia type: due to unspecified organism Chronic obstructive pulmonary disease, unspecified COPD type J44.9
[2025-07-31] VITALS (7 sets, daily range): BP systolic 124–145; BP diastolic 61–75; PULSE 55–75; RESP 15–20; TEMP 36.6–37.3; O2SAT 93–97
[2025-07-31] MEDS: cefTRIAXone 1,000 mg SDV 1000 MG IVP (05:14)
[2025-07-31] MEDS: methylPREDNISolone sod succ 40 mg/mL INJ IVP (05:16)
[2025-07-31 06:16] LABS: Alanine Aminotransferase 41 U/L (0-41); Albumin Level 3.7 g/dL (3.5-5.2); Alkaline Phosphatase 103 U/L (40-130); Blood Urea Nitrogen 26 mg/dL (8-23); Calcium 9.1 mg/dL (8.5-10.5); Carbon Dioxide 25 mmol/L (22-29); Chloride 103 mmol/L (98-107); Globulin 2.6 g/dL (1.3-4.6); Glucose 154 mg/dL (65-115); Magnesium 2.7 mg/dL (1.7-2.3); Osmolality Calculated 302 mOsm/kg (285-295); Sodium 142 mmol/L (136-145); Total Protein 6.3 g/dL (6.6-8.7)
[2025-07-31 06:22] LABS: Anion Gap 17.9 (5-19); Aspartate Amino Transferase 27 U/L (0-40); Potassium 3.9 mmol/L (3.5-5.1)
[2025-07-31 07:48] LABS: Hematocrit 32.7 % (37-53); Hemoglobin 10.20 g/dL (11.27-16.99); Mean Corpuscular HGB Conc 31.2 g/dL (30-55); Mean Corpuscular Hemoglobin 31.5 pg (27-33); Mean Corpuscular Volume 100.9 fl (82-101); Nucleated Red Blood Cells % 0.1 %; Platelet Count 189 10^3/cmm (157-399); Red Blood Count 3.24 10^6/uL (3.85-5.65); White Blood Count 20.67 10^3/uL (3.29-11.43)
--- NOTE | 2025-07-31 08:39 | PM.DCS ---
Discharge Providers Date of Admission: 07/28/25 01:23 Date of Discharge: July 31, 2025 Attending Provider at Admission: Jonas Slaughter MD Attending Provider at Discharge: David Hawk MD Diagnoses at Discharge Discharge Diagnosis 1. Acute hypoxic respiratory failure: 2. Pneumonia: 3. Chronic obstructive pulmonary disease, unspecified COPD type: Reason for Visit Reason for Visit: SOB Brief History: Per HPI Lei Azevedo is a 75 year old male with a past medical history of DVT, history of pulmonary embolism not on anticoagulant therapy,, history of CVA, peripheral arterial disease, who presents [facility] for shortness of breath. Currently patient is alert to person, not to place, to time, he can follow commands, tells me that he is shortness of breath has improved with the BiPAP, he has been short of breath at his long term facility, short of breath with exertion, no chest pain, has complained of a cough, does have edema of his legs, no flank pain, no back pain, no dysuria Hospital Course Hospital Course Patient was admitted to the hospital further evaluation and management of acute on chronic hypoxic respiratory failure in setting of COPD exacerbation due to aspiration pneumonia. He was started on broad-spectrum IV antibiotics, nebulization treatment and steroids. Echocardiogram was done which showed a normal EF. Patient responded well to the treatment. Diet was modified as per speech evaluation. He has been discharged back to SNF in hemodynamically stable condition on oral Augmentin and Levaquin for 5 more days along with steroid taper. His dose of Bumex has been changed to 1 mg daily. Physical Exam Narrative: General: No acute distress, AO x 2 to 3, on nasal cannula HEENT: PERRLA, pupils bilaterally equal and reactive Chest: Bronchial breath sounds all lung luciano with diffuse rhonchi and crackles bilaterally CVS: S1-S2 regular, no murmurs, no tachycardia, no gallops, no rubs Abdomen: Soft, nontender, no organomegaly, bowel sounds present Neuro: No focal deficits, no facial deformity, AO x3, power 5/5 in all limbs Urinary Catheter Management: Sherwood: Cath Placed During This Visit: yes, but has since been removed by the nurse Reason for Continuing Indwelling Catheter: Decision to DC Catheter Urinary Catheter Date of Insertion: 07/28/25 Urinary Catheter Time of Insertion: 12:00 Date Urinary Catheter Removed: 07/30/25 Time Urinary Catheter Discontinued: 18:12 Discharge Data Studies Completed and Pending Completed Studies During Hospitalization Category Date Time Status CT PE [CT angio chest PE protcl 12033] Stat Cat Scan 07/27/25 21:58 Completed XR chest 1V portable [id number] Stat Exams 07/27/25 21:58 Completed CV. echo complete* [id number] Routine Ultrasound 07/28/25 08:28 Completed Pending at discharge Category Date Time Status Blood Culture Stat Lab 07/28/25 01:00 Received Radiology Impressions Chest CTA 07/27/25 21:58 IMPRESSION: 1. Chronic-appearing thrombus along the wall of the left lower lobe segmental arterial branch. 2. Airspace consolidations at the lung bases, preferentially involving the lingula and right lower lobe, consistent with multilobar pneumonia. 3. Calcified pleural plaques along the right anterior lung, correlate for history of asbestos exposure. 4. Moderate hiatal hernia. Findings communicated to Cece Wahl at 11:11 p.m. Chest X-Ray 07/27/25 21:58 IMPRESSION: No acute findings. Microbiology 07/28/25 17:45 Sputum - Expectorated Sputum Gram Stain - Final 07/28/25 17:45 Sputum - Expectorated Sputum Sputum Culture - Final 07/28/25 12:00 Urine Kidney Bacterial Antigens - Final Laboratory Results WBC 20.67 10^3/uL (3.29-11.43) H 07/31/25 07:25 Corrected WBC Cancelled 07/31/25 05:44 RBC 3.24 10^6/uL (3.85-5.65) L 07/31/25 07:25 Hgb 10.20 g/dL (11.27-16.99) L 07/31/25 07:25 Hct 32.7 % (37-53) L 07/31/25 07:25 MCV 100.9 fl (82-101) 07/31/25 07:25 MCH 31.5 pg (27-33) 07/31/25 07:25 MCHC 31.2 g/dL (30-55) 07/31/25 07:25 RDW 15.0 % (12.1-15.1) 07/31/25 07:25 Plt Count 189 10^3/cmm (157-399) 07/31/25 07:25 MPV 10.3 fL (7.4-10.4) 07/31/25 07:25 Gran % Cancelled 07/31/25 05:44 Neut % (Auto) 53.1 % 07/31/25 07:25 Lymph % (Auto) 37.3 % 07/31/25 07:25 [place] % (Auto) 5.8 % 07/31/25 07:25 Eos % (Auto) 0.0 % 07/31/25 07:25 Baso % (Auto) 0.1 % 07/31/25 07:25 Neut # (Auto) 10.98 10^3/uL (1.8-7.7) H 07/31/25 07:25 Lymph # (Auto) 7.7 10^3/uL (0.8-4.8) H 07/31/25 07:25 [place] # (Auto) 1.2 10^3/uL (0.2-0.9) H 07/31/25 07:25 Eos # (Auto) 0.0 10^3/uL (0.0-0.8) 07/31/25 07:25 Baso # (Auto) 0.0 10^3/uL (0.0-0.1) 07/31/25 07:25 Absolute Gran (auto) Cancelled 07/31/25 05:44 Nucleated RBC % (auto) 0.1 % 07/31/25 07:25 Nucleated RBCs # 0.0 /100WBC 07/31/25 07:25 APTT 39.5 SECONDS (23.9-36.7) H D 07/30/25 10:04 Specimen Type Arterial 07/28/25 02:15 Sample Site Brachial, right 07/28/25 02:15 ABG pH 7.47 (7.35-7.45) H 07/28/25 02:15 ABG pCO2 40.1 mmHg (35-45) 07/28/25 02:15 ABG pO2 154.0 mmHg (80.0-100.0) H 07/28/25 02:15 ABG PO2/FiO2 Ratio 342 07/28/25 02:15 ABG HCO3 28.9 mmol/L (22-26) H 07/28/25 02:15 ABG O2 Saturation 98.1 07/28/25 02:15 ABG Base Excess 4.8 mmol/L (-2.0-2.0) H 07/28/25 02:15 Tex Test N/a 07/28/25 02:15 A-a O2 Gradient 14.9 mmHg (5-10) H 07/28/25 02:15 Hematocrit 34.9 % (42-52) L 07/28/25 02:15 Hgb O2 Saturation 96.9 % (95-100) 07/28/25 02:15 Carboxyhemoglobin < 0.3 %THgb (0.4-20.1) L 07/28/25 02:15 Methemoglobin 1.1 % (0.4-1.5) 07/28/25 02:15 Total Hemoglobin 11.4 g/dL (14-18) L 07/28/25 02:15 Sodium 142.0 mmol/L (131-143) 07/28/25 02:15 Potassium 3.4 mmol/L (3.5-5.0) L 07/28/25 02:15 Glucose 157.0 mg/dL (70-115) H 07/28/25 02:15 Ionized Calcium 1.2 mmol/L (1.1-1.4) 07/28/25 02:15 O2 Delivery Device Bipap 07/28/25 02:15 O2 Liters/Min 5.0 % 07/27/25 22:19 FiO2 45.0 % 07/28/25 02:15 Vehicle Assembly Inspector ID [email or web address] 07/28/25 02:15 Sodium 142 mmol/L (136-145) 07/31/25 05:44 Potassium 3.9 mmol/L (3.5-5.1) 07/31/25 05:44 Chloride 103 mmol/L (98-107) 07/31/25 05:44 Carbon Dioxide 25 mmol/L (22-29) 07/31/25 05:44 Anion Gap 17.9 (5-19) 07/31/25 05:44 BUN 26 mg/dL (8-23) H 07/31/25 05:44 Creatinine 1.1 mg/dL (0.7-1.2) 07/31/25 05:44 GFR Calculation Not Reportable 07/31/25 05:44 Glucose 154 mg/dL (65-115) H 07/31/25 05:44 Estimat Average Glucose 100 07/28/25 09:45 Hemoglobin A1c 5.1 % (4.0-6.0) 07/28/25 09:45 Calculated Osmolality 302 mOsm/kg (285-295) H 07/31/25 05:44 Lactic Acid 3.2 mmol/L (0.5-2.2) H 07/28/25 00:55 Lactic Acid (Sepsis) 2.2 mmol/L (0.5-2.2) 07/28/25 04:00 Calcium 9.1 mg/dL (8.5-10.5) 07/31/25 05:44 Magnesium 2.7 mg/dL (1.7-2.3) H 07/31/25 05:44 Iron 52 ug/dL (59-158) L 07/28/25 09:45 TIBC 339 mcg/dl 07/28/25 09:45 % Saturation 15.3 % (20-50) L 07/28/25 09:45 Unsat Iron Binding 287 ug/dL (112-347) 07/28/25 09:45 Total Bilirubin 0.8 mg/dL (0.15-1.2) 07/31/25 05:44 AST 27 U/L (0-40) 07/31/25 05:44 ALT 41 U/L (0-41) 07/31/25 05:44 Alkaline Phosphatase 103 U/L (40-130) 07/31/25 05:44 Troponin T Baseline 35 ng/L (0-15) H 07/27/25 23:25 Troponin T 120 Minute 32.19 ng/L (0-15) H 07/28/25 01:00 Delta Troponin T -2.81 ABS# (0-10) L 07/28/25 01:00 NT-Pro-B Natriuret Pep 66 pg/mL (0-125) 07/28/25 01:00 Total Protein 6.3 g/dL (6.6-8.7) L 07/31/25 05:44 Albumin 3.7 g/dL (3.5-5.2) 07/31/25 05:44 Globulin 2.6 g/dL (1.3-4.6) 07/31/25 05:44 Triglycerides 62 mg/dL (0-150) 07/28/25 09:45 Cholesterol 113 mg/dL (0-200) 07/28/25 09:45 LDL Cholesterol, Calc 48 mg/dL (50-129) L 07/28/25 09:45 Total VLDL Cholesterol 12 mg/dL (0-30) 07/28/25 09:45 HDL Cholesterol 53 mg/dL (60-100) L 07/28/25 09:45 Cholesterol/HDL Ratio 2.13 mg/dL (1.0-5.00) 07/28/25 09:45 Vitamin B12 234 pg/mL (232-1245) 07/28/25 09:45 Folate 5.0 ng/mL (4.5-32.2) 07/29/25 06:07 Procalcitonin 0.66 ng/mL (0-0.5) H 07/28/25 00:55 TSH 0.47 uIU/mL (0.27-4.20) 07/28/25 09:45 Urine Color Yellow (Yellow) 07/28/25 12:00 Urine Appearance Clear (CLEAR) 07/28/25 12:00 Urine pH 5.5 (5-7) 07/28/25 12:00 Ur Specific Palmer 1.025 (1.005-1.030) 07/28/25 12:00 Urine Protein Trace (Negative) A 07/28/25 12:00 Urine Glucose (UA) Negative (Normal) 07/28/25 12:00 Urine Ketones Negative (Negative) 07/28/25 12:00 Urine Blood Trace (Negative) A 07/28/25 12:00 Urine Nitrate Negative (Negative) 07/28/25 12:00 Urine Bilirubin Negative (Negative) 07/28/25 12:00 Urine Urobilinogen 0.2 mg/dL (Negative) 07/28/25 12:00 Ur Leukocyte Esterase Negative (Negative) 07/28/25 12:00 Urine RBC 3-5 /hpf (0-2) 07/28/25 12:00 Urine WBC 0-5 /hpf (0-5) 07/28/25 12:00 Ur Squamous Epith Cells 0-5 /hpf (0-5) 07/28/25 12:00 Amorphous Sediment Not Reportable 07/28/25 12:00 Urine Bacteria None seen /hpf (NONE) 07/28/25 12:00 Hyaline Casts 1.21 /lpf 07/28/25 12:00 Nasal MRSA (PCR) Not detected (Negative) 07/28/25 12:25 Adenovirus (PCR) Not detected (NOT DETECT) 07/28/25 12:25 C. pneumoniae DNA (PCR) Not detected (NOT DETECT) 07/28/25 12:25 Coronavirus 229E (PCR) Not detected (NOT DETECT) 07/28/25 12:25 Human Metapneumovir PCR Not detected (NOT DETECT) 07/28/25 12:25 Influenza A (H1) PCR Not detected (NOT DETECT) 07/28/25 12:25 Influenza A (PCR) Negative (Negative) 07/28/25 03:40 Influ A (H1/09) PCR Not detected (NOT DETECT) 07/28/25 12: Influenza A (H3) PCR Not detected (NOT DETECT) 07/28/25 12: Influenza Type A (PCR) Not detected (NOT DETECT) 07/28/25 12:25 Influenza Type B (PCR) Not detected (NOT DETECT) 07/28/25 12:25 M. pneumoniae (PCR) Not detected (NOT DETECT) 07/28/25 12:25 Parainfluenza 1 (PCR) Not detected (NOT DETECT) 07/28/25 12:25 Parainfluenza 2 (PCR) Not detected (NOT DETECT) 07/28/25 12:25 Parainfluenza 3 (PCR) Not detected (NOT DETECT) 07/28/25 12:25 Parainfluenza 4 (PCR) Not detected (NOT DETECT) 07/28/25 12:25 RSV (PCR) Negative (Negative) 07/28/25 03:40 RSV Type A (PCR) Not detected (NOT DETECT) 07/28/25 12:25 RSV Type B (PCR) Not detected (NOT DETECT) 07/28/25 12: Entero/Rhino (PCR) Not detected (NOT DETECT) 07/28/25 12: SARS-CoV-2 (PCR) Not detected (NOT DETECT) 07/28/25 12:25 Vitals Last Vital Signs Temp 97.9 F 07/31/25 07:10 Pulse 71 07/31/25 08:23 Resp 20 H 07/31/25 08:00 BP 127/65 07/31/25 07:10 Pulse Ox 95 07/31/25 08:23 O2 Del Method Nasal Cannula 07/31/25 08:00 O2 Flow Rate 3 07/31/25 08:00 FiO2 32 07/31/25 08:23 Discharge Plan Discharge Patient Disposition: Home Condition: Stable Prescriptions: New ipratropium-albuterol 0.5 mg-3 mg(2.5 mg base)/3 mL Solution For Nebulization 3 ml inhalation QID.RESPIRATORY 14 Days Qty: 90 0RF prednisone 10 mg tablet See Taper PO DIRECTED Qty: 42 0RF Taper: predniSONE 60-10 60 mg Daily for 2 Days and 0 Hour 50 mg Daily for 2 Days and 0 Hour 40 mg Daily for 2 Days and 0 Hour 30 mg Daily for 2 Days and 0 Hour 20 mg Daily for 2 Days and 0 Hour 10 mg Daily for 2 Days and 0 Hour Rx Instructions: see taper instructions levofloxacin 750 mg tablet 750 mg PO Q24H 5 Days Qty: 5 0RF amoxicillin-pot clavulanate 875-125 mg tablet 1 tab PO BID 5 Days Qty: 10 0RF Continued atorvastatin 40 mg Tablet 40 mg PO BEDTIME ipratropium-albuterol 0.5 mg-3 mg(2.5 mg base)/3 mL Solution For Nebulization 3 ml INHALATION Q6H PRN (Reason: copd) cetirizine [Zyrtec] 10 mg Tablet 10 mg PO DAILY PRN (Reason: allergies) ondansetron HCl 4 mg Tablet 4 mg PO Q4H PRN (Reason: Nausea And Vomiting) potassium chloride 10 mEq Tablet Extended Release 10 meq PO DAILY aspirin 81 mg Tablet,Delayed Release (Dr/Ec) 81 mg PO DAILY acetaminophen 500 mg Tablet 1,000 mg PO Q6H PRN (Reason: Breakthrough Pain) guaifenesin [Sarah-Tussin] 100 mg/5 mL Liquid 200 mg PO Q4H PRN (Reason: Cough) magnesium hydroxide [Milk of Magnesia] 400 mg/5 mL Suspension 30 ml PO DAILY PRN (Reason: Constipation) tamsulosin 0.4 mg Capsule 0.4 mg PO BEDTIME bisacodyl [Dulcolax (bisacodyl)] 10 mg Suppository 10 mg NV DAILY PRN (Reason: Constipation) Fleet Enema 19-7 gram/118 mL Enema 118 ml NV DAILY PRN (Reason: Constipation) budesonide 0.5 mg/2 mL Suspension For Nebulization 0.5 mg INHALATION BID finasteride 5 mg Tablet 5 mg PO BEDTIME Saccharomyces boulardii 250 mg Capsule 250 mg PO DAILY PRN (Reason: abx use) pantoprazole 40 mg tablet,delayed release (DR/EC) 40 mg PO DAILY Changed bumetanide 2 mg Tablet 1 mg PO DAILY Qty: 10 0RF Discharge Order = DC NOW: Discharge Order (Routine); Ordered 07/31/25 Ordered By: David Hawk Patient Instructions: Opioid Safety, Pain Management, Patient Portal & Judy Instructions Discharge Attestations Time Spent in Discharge Care*: greater than 30 min Specific Discharge Activities: educating patient, educating and/or supporting family/caregiver, discussing with pcp/other providers, discussing with home health care case manager/social workers/dc planners, documenting/other paperwork and evaluating patient/reviewing data Status at Discharge: Cognitive status at discharge: mildly impaired cognition, Behavioral status at discharge: cooperative, Functional status at discharge: uses cane/walker, Overall status at discharge: patient is back to baseline Quality Metrics Clinical Quality Measures [ No reported AMI, CVA or VTE this stay] Coding Level of Care Code 65286 Total time (in minutes) for Discharge: 65 Diagnoses Acute hypoxic respiratory failure J96.01 Pneumonia J18.9 Laterality: bilateral Lung location: lower lobe of lung Pneumonia type: due to unspecified organism Chronic obstructive pulmonary disease, unspecified COPD type J44.9
[2025-07-31] MEDS: pantoprazole 40 mg SDV IVP (10:41)
== END 2025-07-31 11:32 | disposition skilled nursing facility (03) | DRG 177 ==
LOC: ER 07-28 01:48 → ICU 07-28 06:02 → MEDSURG 07-29 16:37
PROVIDERS: Admitting Provider Family Medicine; Emergency Provider Emergency Medicine; Visit Provider Student in an Organized Health Care Education/Training Program
DX: J69.0 Pneumonitis due to inhalation of food and vomit (principal); J96.21 Acute and chronic respiratory failure with hypoxia; J44.1 Chronic obstructive pulmonary disease with (acute) exacerbation; I73.9 Peripheral vascular disease, unspecified; L71.9 Rosacea, unspecified; F32.A Depression, unspecified; F41.9 Anxiety disorder, unspecified; K21.9 Gastro-esophageal reflux disease without esophagitis; G25.81 Restless legs syndrome; K44.9 Diaphragmatic hernia without obstruction or gangrene; I10 Essential (primary) hypertension; E78.5 Hyperlipidemia, unspecified; I25.10 Atherosclerotic heart disease of native coronary artery without angina pectoris; F10.10 Alcohol abuse, uncomplicated; Z79.82 Long term (current) use of aspirin; Z86.718 Personal history of other venous thrombosis and embolism; Z86.711 Personal history of pulmonary embolism; Z86.73 Personal history of transient ischemic attack (TIA), and cerebral infarction without residual deficits; Z87.440 Personal history of urinary (tract) infections; Z87.891 Personal history of nicotine dependence
CPT/HCPCS: 36415; 36600; 51702; 71045; 71275; 80051; 80053; 80061; 81001; 82330; 82607; 82746; 82805; 83036; 83540; 83550; 83605; 83735; 83880; 84145; 84443; 84484; 85025; 85049; 85730; 86403; 87040; 87070; 87205; 87486; 87581; 87633; 87637; 92507; 92523; 92526; 92610; 93005; 93306; 94640; 94660; 94664; 96365; 96375; 97116; 97162; 97167; 97530; 97535; 99285; J0456; J0696; J1100; J1644; J1938; J2250; J2470; J2919; J7030; J7050; J7120; J7626; J9999

== ENCOUNTER → 2025-09-01 12:59 | Outpatient (BNVA) | payer MEDICARE, SELFPAY | PROVIDERS: PCP Internal Medicine; Visit Provider Podiatrist Foot & Ankle Surgery | DX: I73.9 Peripheral vascular disease, unspecified (principal); L60.3 Nail dystrophy; L60.8 Other nail disorders | CPT/HCPCS: 11721 ==